=== PATIENT | female | born 1945 | race Caucasian/White ===

== ENCOUNTER 2021-01-19 12:59 | Outpatient (CLI) | payer MEDICARE, SELFPAY | END 2021-01-19 13:00 | disposition home or self-care (01) | LOC: ANHCOVIDVC 12:59 | PROVIDERS: PCP Family Medicine | DX: Z23 Encounter for immunization (principal) | CPT/HCPCS: 0001A; 91300 ==

== ENCOUNTER 2021-02-09 12:59 | Outpatient (CLI) | payer MEDICARE, SELFPAY | END 2021-02-09 13:00 | disposition home or self-care (01) | LOC: ANHCOVIDVC 12:59 | PROVIDERS: PCP Family Medicine | DX: Z23 Encounter for immunization (principal) | CPT/HCPCS: 0002A; 91300 ==

== ENCOUNTER 2021-04-18 07:45 | Observation (INO) | payer MEDICARE, SELFPAY ==
[2021-04-18] VITALS (18 sets, daily range): BP systolic 124–180; BP diastolic 78–94; PULSE 70–90; RESP 12–26; TEMP 36.1–36.7; O2SAT 95–100; BMI 37.8; BMI 38.3
--- NOTE | 2021-04-18 | ECHO_ITS ---
Patient Info Name: Denise Coker Age: 75 years : 1945 Gender: Female Ht: 65 in Wt: 227 lbs BSA: 2.22 m2 HR: 72 bpm BP: 124 / 81 mmHg Heart Rhythm: Sinus Rhythm Technical Quality: Good Exam Date: 04/18/2021 2:21 PM Exam Location: [facility] Pulmonary Patient Status: Inpatient Admit Date: 04/18/2021 Staff Ordering Physician: Oly Landa PA-C Telegraph Mechanic: Kacie Draper RDCS Attending Provider: Heriberto Gallegos M.A., MD Referring Physician: Cordell JACOBS; Exam Type: CA echo doppler color flow Study Info Complete two-dimensional, color flow and Doppler transthoracic echocardiogram is performed. Summary 1. Complete two-dimensional, color flow and Doppler transthoracic echocardiogram is performed. 2. There is mild concentric increased left ventricular wall thickness. 3. Left ventricular systolic function is hyperdynamic, estimated at >70%. 4. Sigmoid hypertrophy of the septum is seen. 5. The left ventricular diastolic function is grade I diastolic dysfunction. 6. Trivial MR. Left Ventricle Left ventricular chamber dimension is normal. Left ventricular systolic function is hyperdynamic, estimated at >70%. There is mild concentric increased left ventricular wall thickness. The left ventricular diastolic function is grade I diastolic dysfunction. Sigmoid hypertrophy of the septum is seen. Right Ventricle Right ventricular chamber dimension is normal. Left Atria Left atrial chamber dimension is normal. Right Atria Right atrial chamber dimension is normal. Aortic Valve The aortic valve is trileaflet. Pulmonic Valve The pulmonic valve is normal. Mitral Valve The mitral valve has normal leaflets. Trivial MR. Tricuspid Valve The tricuspid valve leaflets are normal. Pericardium/Pleural The pericardium appears normal. Aorta The aortic root size at the sinus of Valsalva is normal. Left Ventricular Outflow Tract Name Value Normal LVOT 2D LVOT Diameter 2.3 cm LVOT Doppler LVOT Peak Velocity 121 cm/s LVOT Peak Gradient 6 mmHg LVOT Mean Gradient 3 mmHg LVOT VTI 29 cm LVOT VTI/AV VTI Ratio 1.1 LVOT Stroke Volume 120 ml LVOT CO 6.9 l/min LVOT CI 3.1 l/min/m2 Pulmonic Valve Name Value Normal PV Doppler PV Peak Velocity 97 cm/s PV Peak Gradient 4 mmHg Mitral Valve Name Value Normal MV Doppler
--- NOTE | ~2021-04-18 | XR_ITS ---
EXAMINATION: XR chest 2V DATE: 04/18/2021 08:41 INDICATION: Chest pain and shortness of breath. TECHNIQUE: Frontal and lateral views of the chest were obtained. COMPARISON: Chest 2 views 09/26/2019 FINDINGS: The chest demonstrates clear lungs without pneumonia, pleural effusion, or pneumothorax. Th e heart size is normal. There is mild chronic anterior wedging of midthoracic vertebral bodies. Surgi ricardo clips in the right upper quadrant are likely from cholecystectomy. IMPRESSION: 1. No acute cardiopulmonary disease. Reviewed, dictated and finalized at location A.
--- NOTE | ~2021-04-18 | NM_ITS ---
EXAMINATION: NM mary stress w perfusion DATE: 04/19/2021 14:21 INDICATION: Chest pain TECHNIQUE: Rest images were obtained following intravenous administration of 9.55 mCi Tc99m tetrofosm in (Myoview). The patient was infused intravenously with Lexiscan (Regadenoson). Then, 32.6 mCi Tc99m tetrofosmin (Myoview) was administered intravenously, and stress images were obtained in supine posi tion. The patient was unable to tolerate prone positioning. Data was reconstructed into short axis an d horizontal and vertical long axis SPECT images. Gated SPECT images were also obtained. COMPARISON: None. FINDINGS: Small region of mild reversible decreased activity at the junction of the mid and basilar, anterolateral and inferolateral segments consistent with mild ischemia. No nonreversible perfusion de fects to suggest infarct. There is normal left ventricular chamber size, wall motion and ejection fra ction. Left ventricular ejection fraction measures >70%. IMPRESSION: 1. Small region of mild reversible ischemia in the circumflex coronary artery vascular distribution a t the junction of the mid and basilar anterolateral and inferolateral segments. 2. Left ventricular ejection fraction measuring >70%. Reviewed, dictated and finalized at location A. IMPRESSION: 1. Small region of mild reversible ischemia in the circumflex coronary artery v ascular distribution at the junction of the mid and basilar anterolateral and i nferolateral segments. 2. Left ventricular ejection fraction measuring >70%.
--- NOTE | 2021-04-18 07:51 | ECG_ITS ---
Measurements Intervals [place] Rate: 82 P: 20 WI: 132 QRS: -18 QRSD: 94 T: 42 QT: 367 QTc: 431 Interpretive Statements SINUS RHYTHM DELAYED PRECORDIAL R/S TRANSITION BASELINE ARTIFACT- I, II, III, AVR, AVL, AVF, V1-V3 BORDERLINE ECG Electronically Signed On 04-18-2021 10:21:43 CDT by Gerard Lira D.O.
[2021-04-18 08:46] LABS: Basophils Percent Auto 0.7 % (0.2-1.2); Eosinophils Absolute Auto 0.1 K/mm3 (0-0.3); Eosinophils Percent Auto 1.3 % (0-4.4); Hemoglobin 15.9 g/dL (12.0-15.0); Immature Granulocyte Absolute 0.03 K/mm3 (0.00-0.031); Immature Granulocyte Percent A 0.5 % (0-0.5); Lymphocytes Absolute Auto 1.93 K/mm3 (0.9-3.2); Lymphocytes Percent Auto 31.5 % (18.3-44.2); Mean Corpuscular HGB Conc 34.6 g/dl (32-36); Mean Corpuscular Volume 89.7 fl (80-100); Mean Platelet Volume 9.9 fl (7.4-10.4); Monocytes Absolute Auto 0.4 K/mm3 (0.1-0.6); Monocytes Percent Auto 6.9 % (2.6-8.5); Neutrophils Absolute Auto 3.6 K/mm3 (1.3-6.7); Neutrophils Percent Auto 59.1 % (45.5-73.1); Platelet Count Result 222 k/mm3 (150-375); Red Blood Count 5.13 M/mm3 (4.2-5.4); Red Cell Distribution Width 12.8 % (11.5-14.5); White Blood Count 6.1 K/mm3 (4.5-10.0)
[2021-04-18 08:58] LABS: INR 0.9; Prothrombin Time 12.9 Seconds (11.1-14.7)
[2021-04-18 09:00] LABS: Partial Thromboplastin Time 26.7 SECONDS (22.3-36.8)
[2021-04-18] MEDS: METOPROLOL TARTRATE TAB 25 MG, METOPROLOL TARTRATE TAB 12.5 MG 37.5 MG PO (09:30)
[2021-04-18 09:39] LABS: Anion Gap 10 mmol/L (8-16); Blood Urea Nitrogen 16 mg/dL (7-17); Calcium 9.5 mg/dL (8.4-10.2); Carbon Dioxide 25 mmol/L (22-30); Chloride 104 mmol/L (98-107); Estimated CRCL calculation 116 ml/min; Estimated Glomerular Filt Rate > 60; Glucose 125 mg/dL (65-105); Potassium 4.2 mmol/L (3.4-5.0); Sodium 139 mmol/L (137-145)
[2021-04-18 09:51] LABS: Troponin I < 0.012 ng/mL (0.000-0.034)
--- NOTE | 2021-04-18 10:41 | ED.CHESTPAIN ---
HPI - Chest Pain General Chief Complaint: Chest Pain Stated Complaint: chest pain, sob Time Seen by Provider: 04/18/21 08:19 Source: patient and family Mode of arrival: ambulatory Limitations: no limitations History of Present Illness HPI narrative: Patient is 75 years old white female presented to the ED with retrosternal chest pain and shortness of breath started 7 AM prior to arrival to the emergency room, at rest. Heaviness, 9 out of 10, had 324 mg of aspirin prior to arrival, pain improved down to 2 out of 10. Patient reports the pain improving laying down on the left side and after taking aspirin. History of cardiac stress test years ago with negative results, hypertension, positive family history for coronary artery disease.. Related Data Home Medications Medication Instructions Recorded Confirmed blood-glucose meter #1 each 10/06/19 04/12/21 cetirizine 10 mg tablet 5 mg PO DAILY PRN 10/06/19 04/12/21 cinnamon bark 500 mg capsule 500 mg PO DAILY 10/06/19 04/12/21 fluticasone propionate 50 1 spray NASAL PRN 10/06/19 04/12/21 mcg/actuation nasal spray,suspension lutein 20 mg capsule 20 mg PO DAILY 10/06/19 04/12/21 immun glob G 10 gram/50 mL(20 SUB-Q 03/16/20 04/12/21 %)-pro-IgA 0-50 mcg/mL subcutaneous soln cholecalciferol (vitamin D3) 125 mcg PO DAILY 04/18/21 [Vitamin D3] omeprazole 20 mg PO DAILY 04/18/21 Allergies Allergy/AdvReac Type Severity Reaction Status Date / Time grapefruit Allergy Unknown KIDNEY Verified 04/18/21 07:58 FAILURE Penicillins AdvReac Unknown Nausea Verified 04/18/21 07:58 SOFT DRINKS AdvReac Intermediate KIDNEY Uncoded 04/18/21 07:58 FAILURE Review of Systems Review of Systems: Narrative: CONSTITUTIONAL: Denies fever, chills, or sweats. EYES: Denies visual changes, redness, or discharge. ENT: Denies rhinorrhea, congestion, sore throat, or otalgia. CARDIOVASCULAR: Denies chest pain, palpitations, or edema. RESPIRATORY: Denies cough or dyspnea. GASTROINTESTINAL: Denies abdominal pain, nausea, vomiting, or diarrhea. GENITOURINARY: Denies dysuria or hematuria. SKIN: Denies rash or itching. MUSCULOSKELETAL: Denies back pain, joint pain, or myalgia. NEUROLOGIC: Denies headache, numbness, or weakness. PSYCHIATRIC: Denies anxiety or depression. PMFSH Past Medical History Medical History BMI 37.0-37.9, adult Family History Family History Father Hypertension Family history of heart disease in male family member before age 55 Cerebrovascular accident Grandparent Cerebrovascular accident Sibling Cerebrovascular accident Family history of diabetes mellitus in first degree relative Diabetes mellitus, Onset Age: 80 Family history of respiratory disorder, Onset Age: 2 Family history of malignant neoplasm, Onset Age: 80 Other Family history of cardiovascular disease Family history of malignant neoplasm of brain Social History Social History Smoking status: Never smoker Alcohol intake: never Gender identity (if verbalized by the patient): Female Exam Narrative: Exam Narrative: General appearance: Well-developed, well-nourished Skin: Normal color Head: Normocephalic, nontraumatic Eyes: Clear conjunctiva ENT: Oropharynx normal, ears normal, nose normal Neck: Supple, nontender Chest and respiratory: Airway patent, no respiratory distress, no accessory muscle use Heart: Regular rate/rhythm Abdomen: Soft, nontender, no organomegaly, quiet bowel sounds Vascular: Normal peripheral pulses, normal capillary refill. 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
[2021-04-18 11:21] LABS: Troponin I < 0.012 ng/mL (0.000-0.034)
[2021-04-18] MEDS: ENOXAPARIN 100 MG/ML SYRINGE SUB-Q (11:30)
--- NOTE | 2021-04-18 12:22 | PM.IMHP ---
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 The patient states at 7:00 p.m. last night she developed substernal chest pressure while she was laying down in bed. She did develop some shortness of breath associated with the chest pain. Denies any wheezing, nasal congestion, rhinorrhea, cough symptoms. Symptoms would not go away until she laid on her left side. She denies any associated symptoms of diaphoresis, nausea, radiation of chest pain, or any other associated symptoms. She was able to fall sleep last night while laying on her left side in then when she woke up this morning she continued to have substernal chest pressure. It is constant in nature, no waxing and waning. Chest pressure is worse with laying down flat. She did have 2 episodes of a fluttering sensation to her heart lasting a few seconds. One episode she was driving in her car and in traffic. The other [address] to [employer]. She denies any associated symptoms with her palpitations, and otherwise was feeling well prior. She denies any cold or flu-like symptoms. She denies any fevers, chills, nausea, vomiting, abdominal pain, diarrhea, leg swelling, calf pain, dysuria, frequent urination, lightheadedness, dizziness, near-syncope, or any other symptoms at this time. The patient has gained 36 lbs in the last 1 year while isolated for COVID due to her immunodeficiency and not eating well. She has started exercising, walking 60 minutes in the morning and now at 15 minutes of walking in the afternoon as well. She has also been dieting and eating better recently. She has not had any chest pain with walking recently. She does have episodes of SOB with walking where she has to stop to catch her breath, but then she is able to continue walking. Code Status- Full Code LINDSAY- Ankit Coker PCP- Dr. Bauer Review of Systems Review of Systems: All systems reviewed & are unremarkable except as noted in HPI and below PMFSH Past Medical History Medical History (Updated 04/18/21 @ 12:36 by Oly Landa PA-C) BMI 37.0-37.9, adult Borderline diabetes mellitus 02/06 HgbA1c 6.0% 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 COVID-19 vaccine administered 01/2021 Essential (primary) hypertension JOHN (obstructive sleep apnea) Intolerant of CPAP Surgical History Surgical History (Updated 04/18/21 @ 14:00 by Oly Landa PA-C) History of ankle surgery Left History of lumpectomy of left breast History of partial hysterectomy Hx of elbow surgery Right Family History Family History Father Family history of heart disease in male family member before age 55 Hypertension Cerebrovascular accident Family history of cardiovascular disease Grandparent Cerebrovascular accident Sibling Family history of respiratory disorder, Onset Age: 2 Diabetes mellitus, Onset Age: 80 Family history of malignant neoplasm, Onset Age: 80 Family history of diabetes mellitus in first degree relative Cerebrovascular accident Other Family history of malignant neoplasm of brain Social History Social History (Updated 04/18/21 @ 14:01 by Oly Landa PA-C) Smoking status: Never smoker Alcohol intake: never Substance use: never Substance use type: does not use Living arrangements: alone Occupation/Education: retired Additional occupation/education comments: From [employer] Spiritual care concerns: No Meds Home Medications and Allergies Home Medications Medication Instructions Recorded Confirmed Type blood-glucose meter #1 each 10/06/19 04/12/21 History cetirizine 10 mg tabl
--- NOTE | 2021-04-18 13:03 | ADMGEN ---
This patient, Denise Coker, was admitted to IMU Room 207-01 on 04/18/21 at 1240. Patient/family oriented to hospital policies and general routines including ID bracelet, bed and alarms, visiting hours, pain management, procedures, bathroom and other care routines, personal items, smoking policy, room service/diet, and visiting hours. Information on how to activate the Rapid Response Team has been discussed. Patient/Family are encouraged to report perceived risks to care and to ask questions if they do not understand what they are told or what they should do.
[2021-04-18 14:52] LABS: Troponin I < 0.012 ng/mL (0.000-0.034)
[2021-04-18 16:28] LABS: Glucose Point of Care 194 mg/dl (65-105)
[2021-04-18 17:56] LABS: Troponin I < 0.012 ng/mL (0.000-0.034)
[2021-04-19] VITALS (13 sets, daily range): BP systolic 138–168; BP diastolic 84–97; PULSE 75–99; RESP 12–20; TEMP 36.4–37.1; O2SAT 95–99
--- NOTE | 2021-04-19 | EST_ITS ---
Patient Info Name: Denise Coker Age: 75 years : 1945 Gender: Female Ht: 65 in Wt: 240 lbs BSA: 2.29 m2 Exam Date: 04/19/2021 1:23 PM Exam Location: [facility] Stress Patient Status: Inpatient Admit Date: 04/18/2021 Staff Ordering Physician: Dorothy Nicole Attending Provider: Oly Landa PA-C Exercise Technologist: Romy Wise RDCS Exercise Physician: Adolph Weiss MD Exam Type: CA stress mary w NM Study Info Indications R07.9 - Chest pain, unspecified A regadenoson stress test was performed. Summary 1. Normal sinus rhythm. 2. Leftward axis. 3. No abnormal ST or T changes following Lexiscan injection. 4. Clinically and electrocardiographically negative Lexiscan stress test. 5. Myocardial perfusion imaging exam to be dictated by the Radiology Department. Protocol: Lexiscan Stress ECG Details Stage: REST Duration (min): 7 min : 32 sec HR (bpm): 110 SBP (mmHg): 144 DBP (mmHg): 103 Stage: REST Duration (min): 9 min : 43 sec HR (bpm): 108 SBP (mmHg): 144 DBP (mmHg): 103 Stage: STAGE 1 Duration (min): 0 min : 59 sec HR (bpm): 119 SBP (mmHg): 142 DBP (mmHg): 96 Stage: RECOVERY Duration (min): 1 min : 0 sec HR (bpm): 121 SBP (mmHg): 127 DBP (mmHg): 93 Stage: RECOVERY Duration (min): 2 min : 0 sec HR (bpm): 118 SBP (mmHg): 127 DBP (mmHg): 93 Stage: RECOVERY Duration (min): 3 min : 0 sec HR (bpm): 115 SBP (mmHg): 139 DBP (mmHg): 98 Stage: RECOVERY Duration (min): 3 min : 9 sec HR (bpm): 115 SBP (mmHg): 139 DBP (mmHg): 98 Rest HR: 108 bpm Peak HR: 125 bpm Rest Sys BP: 144 mmHg Peak Sys BP: 142 mmHg Max Pred HR: 144 bpm % Max Pred HR: 87 % Target HR: 122 bpm Max RPP: 17,750 bpm*mmHg Termination Reason: Completed protocol Cardiac Symptoms: None Total Time: 1 min : 0 sec Rest Gómez BP: 103 mmHg Peak Gómez BP: 96 mmHg Total Dose: 0.4 mg Resting ECG Normal sinus rhythm. Leftward axis. Stress ECG No abnormal ST or T changes following Lexiscan injection. Report Signatures
[2021-04-19] MEDS: NITROGLYCERIN SL 0.4 MG TABLET SUBLINGUAL (04:39)
--- NOTE | 2021-04-19 04:40 | PC.NURSE ---
Patient complaining of chest pressure which is keeping her awake. Nitro administered and EKG done per order. Dr. Franks consulted.
--- NOTE | 2021-04-19 04:41 | ECG_ITS ---
Measurements Intervals [place] Rate: 88 P: 48 KS: 166 QRS: -15 QRSD: 97 T: 41 QT: 368 QTc: 447 Interpretive Statements SINUS RHYTHM NORMAL ECG Electronically Signed On 04-19-2021 6:06:33 CDT by Gerard Lira D.O.
[2021-04-19 04:43] LABS: Hematocrit 42.9 % (37.0-47.0); Hemoglobin 14.6 g/dL (12.0-15.0); Mean Corpuscular Hemoglobin 30.7 pg (26-34); Mean Corpuscular Volume 90.3 fl (80-100); Mean Platelet Volume 9.4 fl (7.4-10.4); Platelet Count Result 192 k/mm3 (150-375); Red Blood Count 4.75 M/mm3 (4.2-5.4); Red Cell Distribution Width 12.8 % (11.5-14.5); White Blood Count 6.4 K/mm3 (4.5-10.0)
[2021-04-19 04:53] LABS: Hemoglobin A1C 6.3 % (<5.7)
--- NOTE | 2021-04-19 04:56 | PC.NURSE ---
Denies chest pressure at this time.
[2021-04-19 05:00] LABS: Anion Gap 8 mmol/L (8-16); Blood Urea Nitrogen 13 mg/dL (7-17); Calcium 9.3 mg/dL (8.4-10.2); Carbon Dioxide 23 mmol/L (22-30); Chloride 106 mmol/L (98-107); Cholesterol 221 mg/dL (0-200); Estimated CRCL calculation 119 ml/min; Estimated Glomerular Filt Rate > 60; Glucose 151 mg/dL (65-105); HDL Direct 42 mg/dL; Potassium 4.1 mmol/L (3.4-5.0); Sodium 137 mmol/L (137-145); Triglycerides 383 mg/dL (<150)
[2021-04-19 05:10] LABS: LDL Cholesterol Direct 113 mg/dL
[2021-04-19 07:38] LABS: Glucose Point of Care 146 mg/dl (65-105)
[2021-04-19] MEDS: ASPIRIN 81 MG CHEWABLE TABLET PO (09:22)
[2021-04-19] MEDS: ENOXAPARIN 40 MG/0.4 ML SYRINGE SUB-Q (09:22)
--- NOTE | 2021-04-19 09:23 | PM.CNCAR ---
Assessment and Plan Assessment and plan (1) Chest pain: Qualifiers: Chest pain type: unspecified Qualified Code(s): R07.9 - Chest pain, unspecified <Dorothy NicoleSHITAL - Last Filed: 04/19/21 15:36> Code(s): R07.9 - Chest pain, unspecified <Dorothy NicoleSHITAL - Last Filed: 04/19/21 15:36> Status: Acute <Dorothy LoredoSHITAL zepeda - Last Filed: 04/19/21 15:36> Assessment and Plan: Came into Hospital yesterday with complaints of a ?heaviness? in her chest that she states has been transient since Sunday or Sunday. She rated the pain an 8/10 at its worst. Pain is relieved by lying on her left side and was also relieved by nitroglycerin this morning. EKG was normal, unremarkable for any ischemic changes. Troponins were negative x3. However, there are some concerning features of the quality and description of her pain and she does have risk factors including age and family history. We will plan for Lexiscan stress test today. <Dorothy Jerardo LoredoSHITAL zepeda - Last Filed: 04/19/21 15:36> (2) Essential (primary) hypertension: Code(s): I10 - Essential (primary) hypertension <Dorothy CarrollValentin BonnieSHITAL zepeda - Last Filed: 04/19/21 15:36> Status: Acute <SHITAL Dean - Last Filed: 04/19/21 15:36> Assessment and Plan: Better controlled since admission but not at goal. Will increase lisinopril to 10 mg daily. <SHITAL Dean - Last Filed: 04/19/21 15:36> (3) Hypertriglyceridemia: Code(s): E78.1 - Pure hyperglyceridemia <SHITAL Dean - Last Filed: 04/19/21 15:36> Status: Acute <Dorothy Jerardo LoredoSHITAL zepeda - Last Filed: 04/19/21 15:36> Assessment and Plan: Patient states she has not had a lipid panel drawn in quite some time. Lipids checked during this admission and showed triglycerides elevated at 383, total cholesterol borderline high at 221. LDL 113, HDL 42. Will encourage lifestyle modifications and have lipid panel rechecked as an outpatient. <SHITAL Dean - Last Filed: 04/19/21 15:36> Additional Plan I personally saw and evaluated the patient. I reviewed Dorothy Nicole's note and agree with findings and plan of care as documented in the note. <Jesus Franks MD - Last Filed: 05/03/21 08:51> History of Present Illness History of Present Illness Consult date/time: 04/19/21 09:23 cardiology consultation for chest pain. This is a 75-year-old female with a past medical history of common variable immunodeficiency on Hizentra infusions biweekly, hypertension, GERD, borderline diabetes mellitus who presented to the emergency department yesterday with complaints substernal chest pain. She states that the first episode of this chest pain occurred either on Sunday or Sunday. She states that the 1st time the pain occurred she felt some ?fluttering in her chest as well. The pain lasts for hours in duration and can be as severe as an 8/10. She denies any associated neck pain, jaw pain, arm pain, back pain. She states that last night she began experiencing this pain in her chest around 7:00 p.m. and it was unrelieved by taking aspirin but subsided when she changed positions in bed and laid on her left side. She also states previous to this episode last night, when she experiences pain another time the pain was relieved by sitting in her recliner. Apparently, she had another onset chest pain around 4:00 a.m. this morning and was given nitroglycerin. She says that the pain subsided but she is unsure if it is from the nitroglycerin or because the is episodes ?come and go. She does note that she has been participating more physical activity recently. She began walking 10 minutes a day and gradually built up to walking 60 minutes a day on a regular basis. She denies having any of these chest pain episodes when she goes on her daily walks. She also notes that she followed the keto diet for 2 years. During this pe
[2021-04-19 12:11] LABS: Glucose Point of Care 131 mg/dl (65-105)
[2021-04-19] MEDS: ONDANSETRON INJ 4 MG/2 ML VIAL IV PUSH (15:08)
[2021-04-19] MEDS: PANTOPRAZOLE 40 MG TABLET PO (15:08)
--- NOTE | 2021-04-19 16:47 | PM.DS ---
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 last evening prior to arrival. Pain has been intermittent and becomes intense at times rated 5/10, and other times less severe or its not present. She also had some fluttering palpitations the last few days which was unusual. Vitals showed she was afebrile, non tachycardic, blood pressure elevated 170/83 (she not take any of her medications prior to coming in), pulse ox 99% on room air and normal respirations. Initial labs showed CBC with differential, normal coag panel, normal BMP, negative troponins x4. EKG shows normal sinus rhythm with a heart rate of 82 beats per minute, no ST T-wave changes noted. Chest x-ray shows no acute cardiopulmonary disease. Normal heart size. The patient was admitted under observation status for continued monitoring her troponins, telemetry due to chest pain and fluttering, and cardiology consultation. Today the patient reports multiple episodes of 5/10 substernal chest pressure. Echocardiogram showed mild concentric increased left ventricular wall thickness. Left ventricular systolic function is hyperdynamic, estimated at >70%. Sigmoid hypertrophy of the septum is seen. The left ventricular diastolic function is grade I diastolic dysfunction. Trivial MR. She was evaluated by the aircraft ordnance technician who performed a Lexiscan stress test which showed Small region of mild reversible ischemia in the circumflex coronary artery vascular distribution at the junction of the mid and basilar anterolateral and inferolateral segments. Clinically and electrocardiographically negative Lexiscan stress test. Fasting lipid panel showed elevated triglycerides at 383, total cholesterol elevated at 221, LDL 113, HDL 42. Cardiology evaluated the patient and feels that she is stable for discharge at this time. She is not need to follow-up with cardiology as an outpatient. She can follow-up with her primary care provider within 1 week for further evaluation. They do not recommend starting her on any lipid-lowering medications, educated on lifestyle changes and exercise and repeating lipid panel as an outpatient. Told the patient her chest discomfort could be GI related and to continue taking her omeprazole and try p.r.n. Tums or Mylanta to see if it helps with her discomfort. Return to ER warnings giving. Follow-up with her primary care provider within 1 week. Patient understands and agrees the plan all questions answered. Starting the patient on Aspirin 81 mg daily and Rosuvastatin 20 mg daily. (2) Essential (primary) hypertension: Code(s): I10 - Essential (primary) hypertension Status: Acute Assessment and Plan: Patient's blood pressure was elevated on arrival, 170/83. Patient states she has not taken any of her home medications this morning. BP this morning was improved 138/84 prior to her morning medications. (3) Borderline diabetes mellitus: Code(s): R73.03 - Prediabetes Status: Acute Assessment and Plan: Patient's hemoglobin A1c is 6.0% 02/06. Rechecked hemoglobin A1c and it was 6.3%. Educated the patient to continue working on lifestyle modificiations, dieting, exercising and recheck with PCP labs in June 2021. Patient understands and agrees with the plan. (4) JOHN (obstructive sleep apnea): Code(s): G47.33 - Obstructive sleep apnea (adult) (pediatric) Status: Inactive Asses
== END 2021-04-19 18:43 | disposition home or self-care (01) ==
LOC: ANHED 10:47 → ANHIMU 12:07
PROVIDERS: Admitting Provider Internal Medicine; Emergency Provider Emergency Medicine; PCP Family Medicine; Visit Provider Physician Assistant
DX: R07.9 Chest pain, unspecified (principal); D83.9 Common variable immunodeficiency, unspecified; I10 Essential (primary) hypertension; K21.9 Gastro-esophageal reflux disease without esophagitis; R73.03 Prediabetes; G47.33 Obstructive sleep apnea (adult) (pediatric); I49.8 Other specified cardiac arrhythmias; E78.5 Hyperlipidemia, unspecified; R06.02 Shortness of breath
CPT/HCPCS: 36415; 71046; 78452; 80048; 80061; 82948; 83036; 84484; 85025; 85027; 85610; 85730; 93005; 93017; 93306; 96372; 96374; 99285; A9270; A9502; G0378; J1650; J2405; J2785

== ENCOUNTER 2022-03-22 09:07 | Outpatient (CLI) | payer MEDICARE, SELFPAY ==
--- NOTE | 2022-03-22 | EST_ITS ---
Patient Info Name: Denise Coker Age: 76 years : 1945 Gender: Female Ht: 66 in Wt: 224 lbs BSA: 2.22 m2 Exam Date: 03/22/2022 10:13 AM Exam Location: [facility] Stress Patient Status: Outpatient Admit Date: 03/22/2022 Staff Ordering Physician: Jose Bauer MD Attending Provider: Jose Bauer MD Exam Type: CA stress mary w NM Summary 1. 1. Negative lexiscan stress test for ischemic ST changes by ECG criteria. 2. 2. Stable hemodynamics throughout the test. 3. 3. Nuclear scan to follow and will be reported separately. Please correlate with it. 4. 4. Patient informed of the above results. Protocol: Lexiscan Stress ECG Details Stage: REST Duration (min): 0 min : 56 sec HR (bpm): 73 SBP (mmHg): 138 DBP (mmHg): 84 Stage: REST Duration (min): 17 min : 41 sec HR (bpm): 75 SBP (mmHg): 138 DBP (mmHg): 84 Stage: STAGE 1 Duration (min): 1 min : 0 sec HR (bpm): 90 SBP (mmHg): 147 DBP (mmHg): 84 Stage: RECOVERY Duration (min): 1 min : 0 sec HR (bpm): 104 SBP (mmHg): 147 DBP (mmHg): 84 Stage: RECOVERY Duration (min): 2 min : 0 sec HR (bpm): 102 SBP (mmHg): 147 DBP (mmHg): 84 Stage: RECOVERY Duration (min): 3 min : 0 sec HR (bpm): 98 SBP (mmHg): 141 DBP (mmHg): 78 Stage: RECOVERY Duration (min): 4 min : 0 sec HR (bpm): 98 SBP (mmHg): 141 DBP (mmHg): 78 Stage: RECOVERY Duration (min): 4 min : 17 sec HR (bpm): 96 SBP (mmHg): 141 DBP (mmHg): 78 Rest HR: 75 bpm Peak HR: 105 bpm Rest Sys BP: 138 mmHg Peak Sys BP: 147 mmHg Max Pred HR: 143 bpm % Max Pred HR: 73 % Target HR: 122 bpm Max RPP: 15,435 bpm*mmHg Termination Reason: Completed protocol Cardiac Symptoms: Shortness of breath Total Time: 1 min : 0 sec Rest Gómez BP: 84 mmHg Peak Gómez BP: 84 mmHg Total Dose: 0.4 mg Resting ECG Sinus rhythm. Stress ECG No ST changes. Arrhythmias None. Report Signatures
--- NOTE | ~2022-03-22 | NM_ITS ---
EXAMINATION: NM mary stress w perfusion DATE: 03/22/2022 12:03 INDICATION: Chest pain. TECHNIQUE: Rest images were obtained following intravenous administration of 9.9 mCi Tc99m tetrofosmi n (Myoview). The patient was infused intravenously with Lexiscan (regadenoson). Then, 31.4 mCi Tc99m tetrofosmin (Myoview) was administered intravenously, and stress images were obtained. Data was recon structed into short axis and horizontal and vertical long axis SPECT images. Gated SPECT images were also obtained. COMPARISON: Myocardial perfusion imaging 04/19/2021 FINDINGS: There is no definite reversible or fixed perfusion abnormality to suggest ischemia or infar ction. There is no segmental wall motion abnormality. Left ventricular ejection fraction measures > 70%. IMPRESSION: 1. No definite ischemia or infarct. 2. Normal left ventricular ejection fraction measuring >70%. Reviewed, dictated and finalized at location B.
== END 2022-03-22 09:08 | disposition home or self-care (01) ==
PROVIDERS: PCP Family Medicine; Visit Provider Family Medicine
DX: R07.89 Other chest pain (principal); E78.5 Hyperlipidemia, unspecified; I10 Essential (primary) hypertension; R73.03 Prediabetes
CPT/HCPCS: 78452; 93017; A9502; J2785

== ENCOUNTER 2022-04-03 07:43 | Outpatient (CLI) | payer MEDICARE, SELFPAY ==
--- NOTE | 2022-04-03 07:55 | ECHO_ITS ---
Patient Info Name: Denise Coker Age: 76 years : 1945 Gender: Female Ht: 65 in Wt: 226 lbs BSA: 2.22 m2 HR: 75 bpm BP: 156 / 99 mmHg Technical Quality: Fair Exam Date: 04/03/2022 8:12 AM Exam Location: [facility] Patient Status: Outpatient Admit Date: 04/03/2022 Staff Ordering Physician: Jose Bauer MD Base Brander: Romy Wise RDCS Attending Provider: Jose Bauer MD Referring Physician: Lizette MÉNDEZ; Exam Type: CA echo doppler color flow Study Info Indications R07.9 - Chest pain, unspecified Complete two-dimensional, color flow and Doppler transthoracic echocardiogram is performed. Summary 1. Complete two-dimensional, color flow and Doppler transthoracic echocardiogram is performed. 2. Left ventricular chamber dimension is normal. 3. Left ventricular systolic function is normal, estimated at 60-65%. 4. The left ventricular diastolic function is grade I diastolic dysfunction. 5. E/e' 13 is mildly elevated. 6. Global longitudinal strain is abnormal at -15.5%. 7. There is trace aortic valve regurgitation. 8. There is trace tricuspid valve regurgitation. 9. No pulmonary hypertension, estimated pulmonary arterial systolic pressure is 25 mmHg. 10. There is trace pulmonic regurgitation. Left Ventricle E/e' 13 is mildly elevated. Global longitudinal strain is abnormal at -15.5%. Left ventricular chamber dimension is normal. Left ventricular systolic function is normal, estimated at 60-65%. The left ventricular diastolic function is grade I diastolic dysfunction. Right Ventricle Right ventricular chamber dimension is normal. Right ventricular systolic function is normal. Left Atria Left atrial chamber dimension is normal. Right Atria Right atrial chamber dimension is normal. Aortic Valve The aortic valve is trileaflet. There is no aortic valve stenosis. There is trace aortic valve regurgitation. Pulmonic Valve There is trace pulmonic regurgitation. Mitral Valve There is no mitral valve stenosis. There is no mitral valve regurgitation. Tricuspid Valve There is trace tricuspid valve regurgitation. No pulmonary hypertension, estimated pulmonary arterial systolic pressure is 25 mmHg. Pericardium/Pleural There is no pericardial effusion. Inferior Vena Cava Normal inferior vena cava with >50% collapse upon inspiration consistent with normal right atrial pressure, 5 mmHg. Aorta The aortic root size at the sinus of Valsalva is normal. Left Ventricular Outflow Tract Name Value Normal LVOT 2D LVOT Diameter 2.0 cm LVOT Doppler LVOT Peak Gradient 5 mmHg LVOT Mean Gradient 3 mmHg LVOT VTI 24 cm LVOT VTI/AV VTI Ratio 1.0 LVOT Stroke Volume 76 ml LVOT CO 5.7 l/min LVOT CI 2.6 l/min/m2 Pulmonic Valve Name Value Normal --
== END 2022-04-03 07:44 | disposition home or self-care (01) ==
LOC: ANHCARD 07:44
PROVIDERS: PCP Family Medicine; Visit Provider Family Medicine
DX: R07.89 Other chest pain (principal); R06.2 Wheezing
CPT/HCPCS: 93306

== ENCOUNTER 2022-12-31 06:40 | Emergency (ER) | payer MEDICARE, SELFPAY ==
--- NOTE | ~2022-12-31 | CT_ITS ---
EXAMINATION: CT brain wo con DATE: 12/31/2022 07:35 INDICATION: Headache, dizziness, nausea and vomiting TECHNIQUE: Computed tomography (CT) of the head was performed without intravenous contrast. The mA wa s adjusted according to patient size. Iterative reconstruction technique was employed. Exam dose: 60 5.33 mGy-cm total exam DLP. COMPARISON: 06/20/2018 MRI brain/brainstem 06/20/2018 CTA brain/carotid 06/20/2018 CT brain FINDINGS: Tortuosity and calcification of the basilar artery. Prominent bilateral carotid siphon and supraclinoid internal carotid artery calcifications. No intracranial mass lesion or hemorrhage or cerebrovascular accident is detected. No midline shift o r mass effect. Normal ventricular size. No subdural or epidural hematoma. The mastoid air cells and included paranasal sinuses are unremarkable. No fracture or bone destruction of the cranial. IMPRESSION: Cerebral atherosclerosis No other significant intracranial abnormality Reviewed, dictated and finalized at Location A. Reviewed, dictated and finalized at location A. [place] [employer]
[2022-12-31 06:46] VITALS: BP 181/79; PULSE 67; RESP 17; TEMP 36.8; O2SAT 99
[2022-12-31 07:07] VITALS: BP 157/85; PULSE 80; RESP 20; O2SAT 99
--- NOTE | 2022-12-31 07:17 | PC.NURSE ---
Addendum entered by Judy Gould RN 12/31/22 07:19: Report given to BRANDON Serra Original Note: Report given to BRANDON Castillo.
--- NOTE | 2022-12-31 07:22 | ED.HA ---
HPI - Headache General Chief Complaint: Recheck/Abnormal Lab/Rx Stated Complaint: High bp, dizzy Time Seen by Provider: 12/31/22 06:59 History of Present Illness HPI Narrative: This is a 77-year-old female with reported history of hypertension and diabetes, presents emergency department complaining of headache, nausea and vomiting. Patient states she woke up at 2:00 this morning with a pressure-like headache associated with some nausea. She took an Excedrin with resolution but woke again approximately 2 hours ago with nausea and vomited. She states she checked her blood pressure at home was 180s systolic. She also checked her blood sugar was in the 300s. She states she is usually in the 200s. She admits to eating a large meal yesterday with foods she does not typically eat. She denies any recent trauma or loss of consciousness. She states she had some dizziness that has resolved, though does feel intermittently nauseous. Related Data Home Medications Medication Instructions Recorded Confirmed blood-glucose meter (Contour Meter #1 ea 10/06/19 10/19/22 kit) cetirizine 10 mg tablet (Zyrtec) 5 mg PO DAILY PRN Allergy Symptoms 10/06/19 10/19/22 cinnamon bark 500 mg capsule 500 mg PO DAILY 10/06/19 10/19/22 (Cinnamon) lutein 20 mg capsule 20 mg PO DAILY 10/06/19 10/19/22 cholecalciferol (vitamin D3) 125 125 mcg PO DAILY 04/18/21 10/19/22 mcg (5,000 unit) tablet (Vitamin D3) omeprazole 20 mg tablet,delayed 20 mg PO DAILY 04/18/21 10/19/22 release immun glob G 10 gram/50 mL(20 110 ml subcut .Biweekly 02/23/22 10/19/22 %)-pro-IgA 0-50 mcg/mL subcutaneous soln (Hizentra) Allergies Allergy/AdvReac Type Severity Reaction Status Date / Time grapefruit Allergy Unknown KIDNEY Verified 12/31/22 08:59 FAILURE Penicillins AdvReac Unknown Nausea Verified 12/31/22 08:59 SOFT DRINKS AdvReac Intermediate KIDNEY Uncoded 12/31/22 08:59 FAILURE Review of Systems Review of Systems: CONSTITUTIONAL: Denies fever, chills, or sweats. EYES: Denies visual changes, redness, or discharge. CARDIOVASCULAR: Denies chest pain, palpitations, or edema. RESPIRATORY: Denies cough or dyspnea. GASTROINTESTINAL: Nausea and vomiting denies abdominal pain, or diarrhea. GENITOURINARY: Denies dysuria or hematuria. MUSCULOSKELETAL: Denies back pain, joint pain, or myalgia. NEUROLOGIC: Headache, mild vertigo denies numbness, or weakness. PSYCHIATRIC: Denies anxiety or depression. 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 COVID-19 vaccine administered 01/2021 Diastolic dysfunction Essential (primary) hypertension Flu-like symptoms JOHN (obstructive sleep apnea) Intolerant of CPAP Surgical History Surgical History H/O tooth extraction History of ankle surgery Left History of lumpectomy of left breast History of partial hysterectomy Hx of elbow surgery Right Family History Family History Father Family history of heart disease in male family member before age 55 Hypertension Cerebrovascular accident Family history of cardiovascular disease Grandparent Cerebrovascular accident Sibling Family history of respiratory disorder, Onset Age: 2 Diabetes mellitus, Onset Age: 80 Family history of malignant neoplasm, Onset Age: 80 Family history of diabetes mellitus in first degree relative Cerebrovascular accident Mother , Toxemia at No problems noted. Sibling Diabetes mellitus Dementia Other Family history of malignant neoplasm of brain Social History Social History (Reviewed 12/31/22 @ 07:24 b
[2022-12-31] MEDS: ONDANSETRON HCL ODT 4 MG TABLET PO (07:28)
[2022-12-31 07:31] VITALS: RESP 18; O2SAT 98
[2022-12-31 07:41] LABS: Basophils Percent Auto 0.3 % (0.2-1.2); Eosinophils Percent Auto 0.3 % (0-4.4); Hemoglobin 14.5 g/dL (12.0-15.0); Immature Granulocyte Absolute 0.05 K/mm3 (0.00-0.031); Immature Granulocyte Percent A 0.8 % (0-0.5); Lymphocytes Absolute Auto 1.09 K/mm3 (0.9-3.2); Lymphocytes Percent Auto 17.5 % (18.3-44.2); Mean Corpuscular HGB Conc 33.7 g/dl (32-36); Mean Corpuscular Hemoglobin 30.8 pg (26-34); Mean Corpuscular Volume 91.3 fl (80-100); Mean Platelet Volume 10.1 fl (7.4-10.4); Monocytes Absolute Auto 0.3 K/mm3 (0.1-0.6); Monocytes Percent Auto 4.3 % (2.6-8.5); Neutrophils Absolute Auto 4.8 K/mm3 (1.3-6.7); Neutrophils Percent Auto 76.8 % (45.5-73.1); Platelet Count Result 170 k/mm3 (150-375); Red Blood Count 4.71 M/mm3 (4.2-5.4); Red Cell Distribution Width 13.3 % (11.5-14.5); White Blood Count 6.2 K/mm3 (4.5-10.0)
[2022-12-31 08:09] LABS: Alanine Aminotransferase 28 U/L (6-35); Albumin Level 4.6 g/dL (3.5-5.1); Alkaline Phosphatase 121 U/L (38-126); Anion Gap 8 mmol/L (8-16); Aspartate Amino Transferase 27 U/L (14-36); Bilirubin,Total 0.6 mg/dL (0.2-1.3); Blood Urea Nitrogen 21 mg/dL (7-17); Calcium 9.2 mg/dL (8.4-10.2); Carbon Dioxide 25 mmol/L (22-30); Chloride 100 mmol/L (98-107); Estimated Glomerular Filt Rate > 60; Glucose 305 mg/dL (65-110); Potassium 3.7 mmol/L (3.4-5.0); Sodium 133 mmol/L (137-145)
[2022-12-31 08:57] VITALS: BP 168/76; PULSE 78; RESP 18; O2SAT 95
[2022-12-31 09:30] VITALS: BP 128/77; PULSE 82; RESP 20; O2SAT 96
== END 2022-12-31 09:31 | disposition home or self-care (01) ==
PROVIDERS: Emergency Provider Preventive Medicine Aerospace Medicine; PCP Family Medicine
DX: R11.2 Nausea with vomiting, unspecified (principal); R51.9 Headache, unspecified; E11.9 Type 2 diabetes mellitus without complications; I10 Essential (primary) hypertension; D83.9 Common variable immunodeficiency, unspecified; G47.33 Obstructive sleep apnea (adult) (pediatric); Z90.711 Acquired absence of uterus with remaining cervical stump; Z79.82 Long term (current) use of aspirin
CPT/HCPCS: 36415; 70450; 80053; 85025; 99284; A9270

== ENCOUNTER 2024-01-17 10:30 | Outpatient (CLI) | payer MEDICARE, SELFPAY ==
--- NOTE | ~2024-01-17 | US_ITS ---
EXAMINATION: US soft tissue LE RT DATE: 01/17/2024 11:22 INDICATION: Effusion, right knee. TECHNIQUE: Multiple grayscale and Doppler ultrasound images of the right lower limb were obtained. COMPARISON: None FINDINGS: There is a moderate-sized right knee joint effusion. The patellar tendon and quadriceps ten don are unremarkable. IMPRESSION: 1. Moderate-sized right knee joint effusion. Reviewed, dictated and finalized at location A. RIGGER
== END 2024-01-17 10:31 | disposition home or self-care (01) ==
LOC: ANHIMG 10:30
PROVIDERS: PCP Family Medicine; Visit Provider Physician Assistant
DX: M25.461 Effusion, right knee (principal)
CPT/HCPCS: 76882

== ENCOUNTER 2024-06-03 10:36 | Outpatient (CLI) | payer MEDICARE, SELFPAY ==
[2024-06-03 12:16] LABS: Immunoglobulin G 848 mg/dL (700-1600)
== END 2024-06-03 10:37 | disposition home or self-care (01) ==
PROVIDERS: PCP Family Medicine
DX: D80.1 Nonfamilial hypogammaglobulinemia (principal)
CPT/HCPCS: 36415; 82784

== ENCOUNTER 2024-09-16 10:18 | Outpatient (CLI) | payer MEDICARE, SELFPAY ==
--- NOTE | ~2024-09-16 | XR_ITS ---
EXAMINATION: XR chest 2V DATE: 09/16/2024 10:39 INDICATION: Shortness of breath. Chest pain. TECHNIQUE: Frontal and lateral views of the chest were obtained. COMPARISON: Chest 2 views 04/18/2021 FINDINGS: There is no pneumonia, pleural effusion, or pneumothorax. The heart size is normal. Surgica l clips in the right upper quadrant are likely from cholecystectomy. There is mild chronic anterior w edging of multiple mid thoracic vertebral bodies. IMPRESSION: 1. No acute cardiopulmonary disease. Reviewed, dictated and finalized at location B.
== END 2024-09-16 10:19 | disposition home or self-care (01) ==
PROVIDERS: PCP Family Medicine; Visit Provider Family Medicine
DX: R06.02 Shortness of breath (principal); R05.9 Cough, unspecified
CPT/HCPCS: 71046

== ENCOUNTER 2025-01-27 12:06 | Emergency (ER) | payer MEDICARE, SELFPAY ==
[2025-01-27 12:09] VITALS: BP 156/75; PULSE 80; RESP 16; TEMP 36.7; O2SAT 98
--- NOTE | 2025-01-27 13:28 | ED.WOUNDLAC ---
HPI - Wound/Laceration General Chief Complaint: Wound/Laceration <Leyla Vallecillo PA-C - Last Filed: 01/30/25 10:28> Stated Complaint: left leg spider bite red painful <Leyla Vallecillo PA-C - Last Filed: 01/30/25 10:28> Time Seen by Provider: 01/27/25 13:28 <Leyla Vallecillo PA-C - Last Filed: 01/30/25 10:28> Focused HPI: This is a 79 year old female that presents to the ER for an area of redness and swelling to the left posterior thigh. Ongoing over the last couple of days. Reports history of DM. Denies fever, drainage. GENERAL: Well-appearing, well-nourished, and in no acute distress. HEAD: Normocephalic, atraumatic. CHEST: Clear to auscultation. ?No respiratory distress. HEART: Regular rate and rhythm.? NEURO: ?Alert and oriented x3. Patient screened in triage and initial orders placed.? ?Additional care and disposition to be based upon?diagnostic testing and treatment. <Leyla Vallecillo PA-C - Last Filed: 01/30/25 10:28> History of Present Illness HPI narrative: Agree with the HPI above <Cali Lazo MD - Last Filed: 01/27/25 21:15> Related Data Home Medications: Home Medications ?Medication ?Instructions ?Recorded ?Confirmed ?Last Taken ?Type cetirizine 10 mg tablet (Zyrtec) 5 mg PO DAILY PRN Allergy Symptoms 10/06/19 09/16/24 04/17/21 History cinnamon bark 500 mg capsule 500 mg PO DAILY 10/06/19 09/16/24 04/17/21 History (Cinnamon) lutein 20 mg capsule 20 mg PO DAILY 10/06/19 09/16/24 04/17/21 History cholecalciferol (vitamin D3) 125 125 mcg PO DAILY 04/18/21 09/16/24 04/17/21 History mcg (5,000 unit) tablet (Vitamin D3) omeprazole 20 mg tablet,delayed 20 mg PO DAILY 04/18/21 09/16/24 04/17/21 History release immun glob G 10 gram/50 mL(20 110 ml subcut .Biweekly 02/23/22 09/16/24 Unknown History %)-pro-IgA 0-50 mcg/mL subcutaneous soln (Hizentra) amlodipine 2.5 mg tablet 2.5 mg PO DAILY 01/22/23 09/16/24 Unknown History ketoconazole 2 % topical cream applic topical 09/16/24 09/16/24 Unknown History <Leyla Vallecillo PA-C - Last Filed: 01/30/25 10:28> Allergies/Adverse Reactions: Allergies Allergy/AdvReac Type Severity Reaction Status Date / Time grapefruit Allergy Unknown KIDNEY Verified 01/30/25 10:04 FAILURE Penicillins AdvReac Unknown Nausea Verified 01/30/25 10:04 SOFT DRINKS AdvReac Intermediate KIDNEY Uncoded 01/30/25 10:04 FAILURE <Leyla Vallecillo PA-C - Last Filed: 01/30/25 10:28> Review of Systems Review of Systems: As reviewed above in HPI <Cali Lazo MD - Last Filed: 01/27/25 21:15> [facility] Past Medical History Medical History: Medical History Borderline diabetes mellitus 02/06 HgbA1c 6.0% Adult BMI 38.0-38.9 kg/sq m Mixed stress and urge urinary incontinence Cough Ankle arthritis Flu-like symptoms Diastolic dysfunction JOHN (obstructive sleep apnea) Intolerant of CPAP COVID-19 vaccine administered 01/2021 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 Essential (primary) hypertension <Leyla Vallecillo PA-C - Last Filed: 01/30/25 10:28> Surgical History Surgical History: Surgical History H/O tooth extraction History of lumpectomy of left breast History of ankle surgery Left Hx of elbow surgery Right History of partial hysterectomy <Leyla Vallecillo PA-C - Last Filed: 01/30/25 10:28> Family History Family History: Family History Father Family history of heart disease in male family member before age 55 Hypertension Cerebrovascular accident Family history of cardiovascular disease Grandparent Cerebrovascular accident Sibling Family history of respiratory disorder, Onset Age: 2 Diabetes mellitus, Onset Age: 80 Family history of malignant neoplasm, Onset Age: 80 Family history of diabetes mellitus in first degree relative Cerebrovascular accident Mother , Toxemia at Toxemia after giving . Sibling Diabetes mellitus Dementia Sibling Heart disease Pacemaker Dementia Other Family history of malignant neoplasm of brain <Leyla Vallecillo PA-C - Last Filed: 01/30/25 10:28> Social History Social History: Social History Smoking status: Never smoker Second hand tobacco smoke exposure: Yes Alcohol intake: never Substance use: never Substance use type: does not use Do You Feel Safe in your Home?: Yes Lack of Transportation: No Lack of Food: Never True Current Housing: I Have Housing Concerned About Future Housing: No Difficulty Paying Gas/Electric Bills: No Difficulty Paying for Meds: No Currently Unemployed: No Education: High School Diploma/GED Difficulty w/ Childcare or Family Care: No Living arrangements: alone Occupation/Education: retired Additional occupation/education comments: From [employer] Gender identity (if verbalized by the patient): Female Sexual Orientation (if Verbalized by the Patient): Straight or Heterosexual Spiritual care concerns: No Agree to blood products: Yes <Leyla Vallecillo PA-C - Last Filed: 01/30/25 10:28> Exam Narrative: GENERAL: [Well-appearing, well-nourished, and in no acute distress.] HEAD: [Normocephalic, atraumatic.] EYES: [PERRLA and EOMI.] ENT: Nares clear, no rhinorrhea or epistaxis. Mucous membranes moist. NECK: Supple. CHEST: [Clear to auscultation. No respiratory distress.] HEART: [Regular rate and rhythm]. No murmur heard. [Normal peripheral pulses.] ABDOMEN: [Soft, nondistended], [nontender], [No rigidity or guarding] EXTREMITIES: Normal range of motion. [No edema.] SKIN: Posterior left thigh has an area of induration with some erythema and what appears to be 2 punctate lesions consistent with potential bug bite. Surrounding area appears to be slightly indurated without any fluctuance or palpable abscess formation. Consistent with cellulitis. NEURO: [No focal deficits]. Alert and oriented [x3.] PSYCH: [Normal mood and affect.] <Cali Lazo MD - Last Filed: 01/27/25 21:15> Course Vital Signs Vital signs: Vital Signs Temperature 98.0 F 01/27/25 12:09 Pulse Rate 80 01/27/25 12:09 Respiratory Rate 16 01/27/25 12:09 Blood Pressure 156/75 H 01/27/25 12:09 Pulse Oximetry 98 01/27/25 12:09 Oxygen Delivery Room Air 01/27/25 12:09 Temperature 97.8 F 01/27/25 15:09 Pulse Rate 67 01/27/25 15:09 Respiratory Rate 16 01/27/25 15:09 Blood Pressure 130/62 01/27/25 15:09 Pulse Oximetry 99 01/27/25 15:09 Oxygen Delivery Room Air 01/27/25 12:09 <Leyla Vallecillo PA-C - Last Filed: 01/30/25 10:28> Vital Signs Temperature 98.0 F 01/27/25 12:09 Pulse Rate 80 01/27/25 12:09 Respiratory Rate 16 01/27/25 12:09 Blood Pressure 156/75 H 01/27/25 12:09 Pulse Oximetry 98 01/27/25 12:09 Oxygen Delivery Room Air 01/27/25 12:09 Temperature 97.8 F 01/27/25 15:09 Pulse Rate 67 01/27/25 15:09 Respiratory Rate 16 01/27/25 15:09 Blood Pressure 130/62 01/27/25 15:09 Pulse Oximetry 99 01/27/25 15:09 Oxygen Delivery Room Air 01/27/25 12:09 <Cali Lazo MD - Last Filed: 01/27/25 21:15> MDM - Wound/Laceration MDM Narrative Medical decision making narrative: 79-year-old female presenting for left posterior thigh potential spider bite. She has an area of induration and erythema with some tenderness to palpation and what appears to be punctate lao from a potential spider bite or insect bite. The surrounding area is not tracking with any streaking or ascending or descending signs of infection. No palpable fluctuance or drainable abscess on external examination. She has normal vital signs. Patient denies any other potential trauma or injury. She is not sure what bit her and she does not remember a bite but woke up with this several days ago. Blood work was obtained including CBC, CMP, inflammatory markers. Will treat her for cellulitis and potential bug bites/spider bite. She will be given Bactrim here in in the ED and sent home with a prescription. Patient's laboratory studies do not show any leukocytosis, mild CRP elevation, normal kidney and hepatic function. Normal glucose. Encouraged to follow-up with her primary care provider. She was given return precautions and safe for discharge at this time. <Cali Lazo MD - Last Filed: 01/27/25 21:15> Medical Records Attestation: I reviewed the patient's medical records. <Cali Lazo MD - Last Filed: 01/27/25 21:15> Lab Data Attestation: I reviewed the patient's lab results. <Cali Lazo MD - Last Filed: 01/27/25 21:15> Result diagrams: 01/27/25 13:52 01/27/25 13:52 <Leyla Vallecillo PA-C - Last Filed: 01/30/25 10:28> Labs: Lab Results 01/27/25 Range/Units 13:52 WBC 8.7 (4.5-10.0) K/mm3 RBC 4.51 (4.2-5.4) M/mm3 Hgb 13.9 (12.0-15.0) g/dL Hct 41.8 (37.0-47.0) % MCV 92.7 (80-100) fl MCH 30.8 (26-34) pg MCHC 33.3 (32-36) g/dl RDW 13.8 (11.5-14.5) % Plt Count 156 (150-375) k/mm3 MPV 9.8 (7.4-10.4) fl Immature Gran % (Auto) 0.3 (0-0.5) % Neut % (Auto) 67.9 (45.5-73.1) % Lymph % (Auto) 22.3 (18.3-44.2) % [place] % (Auto) 7.8 (2.6-8.5) % Eos % (Auto) 1.4 (0-4.4) % Baso % (Auto) 0.3 (0.2-1.2) % Lymph # (Auto) 1.94 (0.9-3.2) K/mm3 [place] # (Auto) 0.7 H (0.1-0.6) K/mm3 Eos # (Auto) 0.1 (0-0.3) K/mm3 Baso # (Auto) 0.0 (0.0-0.1) K/mm3 Abs Immat Gran (auto) 0.03 (0.00-0.031) K/mm3 Absolute Neuts (auto) 5.9 (1.3-6.7) K/mm3 Absolute Nucleated RBC 0.000 (0.0-0.012) K/mm3 Nucleated RBC % 0.0 (0.0-0.2) % ESR 20 (0-20) mm/hr Sodium 139 (137-145) mmol/L Potassium 3.9 (3.4-5.0) mmol/L Chloride 106 (98-107) mmol/L Carbon Dioxide 23 (22-30) mmol/L Anion Gap 10 (4-12) mmol/L BUN 19 H (7-17) mg/dL Creatinine 0.48 L (0.7-1.0) mg/dL Estim Creat Clear Calc 90 ml/min Estimated GFR > 60 (59 - ) Glucose 144 H (65-110) mg/dL Calcium 8.9 (8.4-10.2) mg/dL C-Reactive Protein 1.9 H (<1.0) mg/dL <Leyla Vallecillo PA-C - Last Filed: 01/30/25 10:28> Lab Results 01/27/25 Range/Units 13:52 WBC 8.7 (4.5-10.0) K/mm3 RBC 4.51 (4.2-5.4) M/mm3 Hgb 13.9 (12.0-15.0) g/dL Hct 41.8 (37.0-47.0) % MCV 92.7 (80-100) fl MCH 30.8 (26-34) pg MCHC 33.3 (32-36) g/dl RDW 13.8 (11.5-14.5) % Plt Count 156 (150-375) k/mm3 MPV 9.8 (7.4-10.4) fl Immature Gran % (Auto) 0.3 (0-0.5) % Neut % (Auto) 67.9 (45.5-73.1) % Lymph % (Auto) 22.3 (18.3-44.2) % [place] % (Auto) 7.8 (2.6-8.5) % Eos % (Auto) 1.4 (0-4.4) % Baso % (Auto) 0.3 (0.2-1.2) % Lymph # (Auto) 1.94 (0.9-3.2) K/mm3 [place] # (Auto) 0.7 H (0.1-0.6) K/mm3 Eos # (Auto) 0.1 (0-0.3) K/mm3 Baso # (Auto) 0.0 (0.0-0.1) K/mm3 Abs Immat Gran (auto) 0.03 (0.00-0.031) K/mm3 Absolute Neuts (auto) 5.9 (1.3-6.7) K/mm3 Absolute Nucleated RBC 0.000 (0.0-0.012) K/mm3 Nucleated RBC % 0.0 (0.0-0.2) % ESR 20 (0-20) mm/hr Sodium 139 (137-145) mmol/L Potassium 3.9 (3.4-5.0) mmol/L Chloride 106 (98-107) mmol/L Carbon Dioxide 23 (22-30) mmol/L Anion Gap 10 (4-12) mmol/L BUN 19 H (7-17) mg/dL Creatinine 0.48 L (0.7-1.0) mg/dL Estim Creat Clear Calc 90 ml/min Estimated GFR > 60 (59 - ) Glucose 144 H (65-110) mg/dL Calcium 8.9 (8.4-10.2) mg/dL C-Reactive Protein 1.9 H (<1.0) mg/dL <Cali Lazo MD - Last Filed: 01/27/25 21:15> Critical Care Time Critical Care Time Critical Care Time: No <Leyla Vallecillo PA-C - Last Filed: 01/30/25 10:28> Discharge Plan Discharge Clinical Impression: Bug bite Qualifiers: Encounter type: initial encounter Qualified Code(s): W57.XXXA - Bitten or stung by nonvenomous insect and other nonvenomous arthropods, initial encounter Cellulitis Qualifiers: Site of cellulitis: extremity Site of cellulitis of extremity: lower extremity Laterality: left Qualified Code(s): L03.116 - Cellulitis of left lower limb <CHINYERE Bearden Last Filed: 01/30/25 10:28> Patient Disposition: Home, Self-Care <CHINYERE Bearden Last Filed: 01/30/25 10:28> Condition: Stable <CHINYERE Bearden Last Filed: 01/30/25 10:28> Instructions: Antibiotic Form, Cellulitis (ED), Insect Bite or Sting (ED) <CHINYERE Bearden Last Filed: 01/30/25 10:28> Additional Instructions: Your symptoms are consistent with cellulitis likely from a recent bug bite to left thigh. We will send you home with Bactrim which is a broad-spectrum antibiotic. Continue taking this as directed, Tylenol ibuprofen for pain control. Return with any new or worsening concerns otherwise follow-up with regular doctor. You can apply Neosporin to the bug bite itself. <Leyla Vallecillo PA-C - Last Filed: 01/30/25 10:28> Patient Language: Greek <CHINYERE Bearden Last Filed: 01/30/25 10:28> Prescriptions: New sulfamethoxazole-trimethoprim [Bactrim DS] 800-160 mg tablet 1 tablet PO Q12H Qty: 14 0RF No Action Hizentra 10 gram/50 mL (20 %) solution 110 ml SUB-Q .Biweekly nitroglycerin 0.4 mg tablet, sublingual 0.4 mg sublingual Q5M PRN (Reason: chest pain) Qty: 25 0RF Rx Instructions: do not exceed 3 doses per episode amlodipine 2.5 mg tablet 2.5 mg PO DAILY cinnamon bark [Cinnamon] 500 mg capsule 500 mg PO DAILY lutein 20 mg capsule 20 mg PO DAILY cetirizine [Zyrtec] 10 mg tablet 5 mg PO DAILY PRN (Reason: Allergy Symptoms) albuterol sulfate 90 mcg/actuation HFA aerosol inhaler 2 inh inhalation Q6H PRN (Reason: shortness of breath or wheezing) Qty: 8.5 2RF ketoconazole 2 % cream topical omeprazole 20 mg Tablet,Delayed Release (Dr/Ec) 20 mg PO DAILY cholecalciferol (vitamin D3) [Vitamin D3] 125 mcg (5,000 unit) Tablet 125 mcg PO DAILY aspirin [Children's Aspirin] 81 mg Tablet,Chewable 81 mg PO DAILY Qty: 30 0RF (DME) lancets 31 gauge misc See Rx Instructions .Route Qty: 100 1RF Rx Instructions: Use daily metoprolol succinate 50 mg tablet extended release 24 hr 100 mg PO DAILY Qty: 180 0RF Farxiga 10 mg tablet 10 mg PO QAM Qty: 90 3RF rosuvastatin 20 mg tablet See Rx Instructions .ROUTE .COMPLEX Qty: 90 1RF Dose Instruction: TAKE 1 TABLET BY MOUTH DAILY Rx Instructions: TAKE 1 TABLET BY MOUTH DAILY lisinopril 10 mg tablet See Rx Instructions .ROUTE .COMPLEX Qty: 90 1RF Dose Instruction: TAKE 1 TABLET BY MOUTH DAILY Rx Instructions: TAKE 1 TABLET BY MOUTH DAILY mirabegron [Myrbetriq] 50 mg tablet extended release 24 hr See Rx Instructions .ROUTE .COMPLEX Qty: 90 0RF Dose Instruction: TAKE 1 TABLET BY MOUTH DAILY Rx Instructions: TAKE 1 TABLET BY MOUTH DAILY (DME) Contour Next Test Strips Strip See Rx Instructions .ROUTE .MEDSUPPLY Qty: 100 3RF Rx Instructions: As directed daily (DME) blood-glucose meter [Contour Meter] Kit See Rx Instructions .ROUTE .MEDSUPPLY Qty: 1 0RF Rx Instructions: As directed (DME) Easy Touch Lancets 32 gauge misc See Rx Instructions .Route Qty: 50 0RF Rx Instructions: check glucose once daily <Leyla Vallecillo PA-C - Last Filed: 01/30/25 10:28> Follow-up/Referrals: Jose Bauer MD [Primary Care Provider] - <Leyla Vallecillo PA-C - Last Filed: 01/30/25 10:28> Time of Disposition: 16:07 <Leyla Vallecillo PA-C - Last Filed: 01/30/25 10:28> 16:07 <Cali Lazo MD - Last Filed: 01/27/25 21:15>
--- OUTSIDE RECORDS SUMMARY | 2025-01-27 13:31 | XMS_ITS ---
Author Organization [facility] Address [address] [place] [address] Care Team Providers Care Boat Puller Name Role Phone Lizette PAUL, Jose Primary Care Provider Vanna Ferrer Unavailable [phone] Sandra Rinaldi Unavailable Unavailable Allergies No Known Allergies REASON FOR VISIT History of hypogammaglobulinemia, previously managed by Dr. Rinaldi. Receives Hizentra every 2 weeks since approximately 2017. Reports illness this Winter that required steroids and antibiotics. Tolerating infusions without issue. Medications Medication SIG (Take, Route, Frequency, Duration) Notes Start Date End Date Status Aspirin 81 MG 1 tab(s) chewed once a day Active Cetirizine HCl 5 MG 1 tab(s) orally once a day Active Cetirizine HCl 10 MG 1 tablet Orally as needed for 30 days Active Cholecalciferol 125 MCG 1 TAB(S) ORALLY ONCE A DAY *Please review and pick correct strength-formulat ion from [employer] options. If intended option is not shown, discontinue and re-order from Quick Search* Active DAPAGLIFLOZIN 10 MG 1 TAB(S) ORALLY ONCE A DAY *Please review for potential replacement for e-prescription and drug interaction check* Active Metoprolol Succinate ER 50 MG 2 tab(s) orally once a day Active Nitroglycerin 0.4 MG 1 tab(s) sublingually every 5 minutes Active HIZENTRA 20% as directed Activ e LISINOPRIL 10 mg 1 tab(s) orally once a day Active Lutein 20 MG 1 cap(s) orally once a day Active Omeprazole 20 MG 1 cap(s) orally once a day Active Rosuvastatin Calcium 20 MG 1 tab(s) orally once a day Active Myrbetriq 50 MG 1 tab(s) orally once a day Active ALBUTEROL (EQV-PROAIR HFA) 90 MCG/INH 2 PUFF(S) INHALED EVERY 6 HOURS *Please review for potential replacement for e-prescription and drug interaction check* Active AMLODIPINE 2.5 mg 1 tab(s) orally once a day Active Hizentra 20% DIRECTED *Please review and pick correct strength-formulat ion from [employer] options. If intended option is not shown, discontinue and re-order from Quick Search* Active Lisinopril 10 MG 1 tab(s) orally once a day Active amLODIPine Besylate 2.5 MG 1 tab(s) orally once a day Active Social History Tobacco Use: Social History Observation Description Date Details (start date - stop date) Never Smoker NA - NA Tobacco Control (Standard) Question Answer Notes Tobacco use: Nonsmoker Vital Signs Blood pressure systolic 133 mm Hg 09/30/20 24 Blood pressure diastolic 89 mm Hg 024 Height 62 in 09/30/2024 Weight 222.8 lbs 09/30/2024 BMI 40.75 kg/m2 09/30/2024 Oximetry 96 % 09/30/2024 Encounters Encounter Location Date Provider Diagnosis [facility] [address] [address] 09/30/2024 Vanna Perez Chronic rhinitis J31 .0 ; Nonfamilial hypogammaglobulinemia D80.1 and Essential (primary) hypertension I10 Assessments Encounter Date Diagnosis (ICD Code) Assessment Notes Treatment Notes Treatment Clinical Notes Section Notes 09/30/2024 Chronic rhinitis (IC D-10 - J31.0) Last visit Denise reported increased nasal congestion and drainage that started after a URI this Winter. - Can continue Flonase as Denise notes benefit, encouraged daily use for better efficacy. - Trialed ipratropium bromide x 3 weeks, which Denise found beneficial. Symptoms have since resolved 09/30/2024 Nonfamilial hypogammaglobulinemia (ICD-10 - D80.1) Denise presented to our office reporting history of CVID, records sent by her dcs engineer, Dr. Rinaldi, also report CVID diagnosis. However, after thorough record review, vaccine challenges were not completed with Denise's initial work-up. Appropriate diagnosis is hypogammaglobuli nemia. Records show IgG level as low as 291 in 06/2016 prior to starting therapy. Denise reports that prior to starting exogenous IgG infusions, she was constantly sick requiring many courses of oral antibiotics and steroids. She is currently on Hizentra, receiving 22 g infusions subcutaneously every 2 weeks. She completes infusions herself. - Record's from Dr. Rinaldi's office were scanned into Denise's chart. - Most recent IgG trough level drawn in May was 848. No interval infections. Denise is tolerating infusions without issue. - Continue Hizentra every two weeks at this time. Denise is to continue premedication with Zyrtec. She is aware to contact the office if any issues arise. - Follow-up in 3-4 months for further evaluation and management 09/30/2024 Essential (primary) hypertension (ICD-10 - I10) BP elevated on PE. Recheck at follow-up and discuss with PMD. No symptoms of hypertensive crisis 09/30/2024 Other Plan Of Treatment Medication Medication Name Sig Start Date Stop Date Notes Cetirizine HCl 10 MG 1 tablet Orally as needed for 30 days HIZENTRA 20% as directed LISINOPRIL 10 mg 1 tab(s) orally once a day AMLODIPINE 2.5 mg 1 tab(s) orally once a day Treatment Notes Assessment Notes Chronic rhinitis Last visit Denise reported increased nasal congestion and drainage that started after a URI this Winter. - Can continue Flonase as Denise notes benefit, encouraged daily use for better efficacy. - Trialed ipratropium bromide x 3 weeks, which Denise found beneficial. Symptoms have since resolved Nonfamilial hypogammaglobulinemia Denise presented to our office reporting history of CVID, records sent by her dcs engineer, Dr. Rinaldi, also report CVID diagnosis. However, after thorough record review, vaccine challenges were not completed with Denise's initial work-up. Appropriate diagnosis is hypogammaglobulinemia. Records show IgG level as low as 291 in 06/2016 prior to starting therapy. Denise reports that prior to starting exogenous IgG infusions, she was constantly sick requiring many courses of oral antibiotics and steroids. She is currently on Hizentra, receiving 22 g infusions subcutaneously every 2 weeks. She completes infusions herself. - Record's from Dr. Rinaldi's office were scanned into Denise's chart. - Most recent IgG trough level drawn in May was 848. No interval infections. Denise is tolerating infusions without issue. - Continue Hizentra every two weeks at this time. Denise is to continue premedication with Zyrtec. She is aware to contact the office if any issues arise. - Follow-up in 3-4 months for further evaluation and management Essential (primary) hypertension BP elev ated on PE. Recheck at follow-up and discuss with PMD. No symptoms of hypertensive crisis Next Appt Details Follow Up: 3 Months, Reason: Evaluation and Management Provider Name:Vanna gong, 03/03/2025 09:30:00 AM, [facility] [address], [address], Procedure Notes * Category Sub-Category Detail Notes Time (Provider Encounter) Time Attestation This follow-up encounter took more than:: more than 30 minutes (42607) Tasks performed during this encounter include:: taking a history, reviewing the patient's review of systems, performing the physical examnation, reviewing laboratory results, reviewing outside medical records, documenting in the EHR Progress Notes * Bola PETERSOB:1945 (7 0 yo F)Acc No.[id number]:09/30/2024 Progress Notes Patient: Denise RODRIGUEZ Provider: Carroll Perez DNP [employer] W[employer] MACHINE-C :1945 A ge:79 Y S ex:Female Date:09/30/2024 Address:[address] [place], [place] [id number] Pcp:Jose Bauer MD Subjective: * Chief Complaints: * H istory of hypogammaglobulinemia, previously managed by Dr. Rinaldi. Receives Hizentra every 2 weeks since approximately 2017. Reports illness this Winter that required steroids and antibiotics. Tolerating infusions without issue. * HPI: * Introduction: I had the pleasure of seeing Clyde Peters, an 41-dyab-[id number] female with past medical history significant for hypertension, DiabetesMellitus and hypogammaglobulinemia who returns today for further evaluation and management. [facility] Denise reports history of hypogammaglobulinemia, previously managed by Dr. Rinaldi,pulmonology, and her team. Denise has been receiving Hizentra infusions since approximately 2015. Prior to this she was experiencing recurrent bronchitis and sinus infections.Now reports minimal infections, was recently sick this Winter and required oralantibiotics of steroids. Other than this, Denise states she has been healthyfor the past six years. Denise completes infusions at home every two weeks, shecompletes infusions herself and denies issues or side effects. Last infusionwas one week ago. She denies interval infections today. Recent IgG trough level drawn in May was 848. No interval antibiotics or steroids. No issues reported with infusions. Denise denies history of upperairway symptoms concerning for uncontrolled atopic disease. Also denies historyof daily lower airway symptoms, however was prescribed an albuterol inhalerwith recent illness. Today, she reports no fevers, chills, night sweats or other constitutional symptoms. * ROS: A LLERGY: runny nose Y es. i tchy eyes Y es. s inus congestion Y es. P ositive p er the HPI and history, otherwise unremarkable. S PECIAL SENSES: Positve for n one. C ONSTITUTIONAL: loss of appetite N o. f ever N o. n ight sweats?Yes. P ositive for n one. E NT: change in voice Y es. P ositive p er the HPI and history, otherwise unremarkable. R ESPIRATORY: Positive p er the HPI and history, otherwise unremakable.? O PHTHALMOLOGY: Positive for p er the HPI and history, otherwise unremarkable. E NDOCRINOLOGY: polydipsia Y es. p olyuria Y es. s leep disturbance Y es. d iabetes Y es. P ositive for n one. C ARDIOLOGY: chest pain N o. l eg edema N o. d izziness N o. P ositive for n one. G ASTROENTEROLOGY: Positive for n one. U ROLOGY: difficulty urinating N o. b lood in urine N o. f requent urination Y es. u rinary incontinence Y es. r ecurrent UTI N o. P ositive for n one. D ERMATOLOGY: rash N o. m ole Y es. l umps N o. d ry or sensitive skin Y es. h lupe (urticaria) N o. a cne N o. s kin cancer N o. P ositive for p er the HPI and history, otherwise unremakable. N EUROLOGY: Positive for n one. H EMATOLOGY/LYMPH: Positive for n one. M USCULOSKELETAL: Positive for n one. P SYCHOLOGY: Positive for n one. A ll other review of systems per the HPI and history, otherwise unremarkable. * Medical History: * Surgical History: p artial hysterectomy ankle repair breast biopsy Gallbladder Removal Toenail removal * Hospitalization/Major Diagno stic Procedure: h ysterectomy * Family History: F ather: , Yes, diagnosed with Hypertension. M other: . S iblings: Yes, diagnosed with Diabetes mellitus type I, Hypertension. C hildren: Yes, diagnosed with Cancer, Diabetes mellitus type I. 1 brother(s) , 2 sister(s) . 5 son(s) . . * Social History: M arital Status What is your marital status? w idowed A lcohol Screening Do you ever drink alcoholic beverages? N o S moking Are you a : n ever smoker R ecreational drug use Have you ever used recreational drugs? N o D etails on consumption of certain products? Do you regularly consume products with aspartame; Equal or NutraSweet? Y es Do you regularly consume products with artificial coloring??No E xercise What kind(s) of exercise do you perform regularly? w alking How often do you perform this exercise? d aily A re any of the following personal care products containing fragrance, dye or preservatives used regularly? Shampoo: Y es Conditioner: N o Soap: Y es Laundry Detergent: Y es Deodorant: Y es Perfume, cologne, after shave: Y es Air freshners or other scented products: Y es Hair coloring dyes or rinses: N o O ccupation Are you currenly employed? N o Have you had any job with high exposure to fumes, chemicals, dust or other noxious substances? N o Are you currently a student? N o E nvironmental History Living environment: p rivate home Where is the home located? [place] How long have you lived there? 5 years or more How many people live in the home? 1 H ome description Basement: N o Smokers in the home? N o Smokers outside the home? N o Air Conditioning? Y es Central Air? Y es Fireplace? N o Wood burning stove? N o Do you vacuum the home? Y es Air purification systems? N o Pillow and mattress dust-proof encasings? N o Do you use a humidifier? N o Do you own any pets? N o Fabric softeners used? N o Plants in the home? N o Is there carpeting in your bedroom? Y es Do you sleep with quilts or blankets or a duvet? Y es T obacco Control (Standard) Tobacco use: N onsmoker * Medications: T akingAMLODIPINE 2.5 mg tablet 1 tab(s) orally once a day LISINOPRIL 10 mg tablet 1 tab(s) orally once a day HIZENTRA 20% solution as directed amLODIPine Besylate 2.5 MG Tablet 1 tab(s) orally once a day Lisinopril 10 MG Tablet 1 tab(s) orally once a day Hizentra 20% SOLUTION DIRECTED , Notes to Pharmacist: *Please review and pick correct strength-formulation from [employer] options. If intended option is not shown, discontinue and re-order from Quick Search*ALBUTEROL (EQV-PROAIR HFA) 90 MCG/INH AEROSOL 2 PUFF(S) INHALED EVERY 6 HOURS , Notes to Pharmacist: *Please review for potential replacement for e-prescription and drug interaction check*Myrbetriq 50 MG Tablet Extended Release 24 Hour 1 tab(s) orally once a day Rosuvastatin Calcium 20 MG Tablet 1 tab(s) orally once a day Omeprazole 20 MG Capsule Delayed Release 1 cap(s) orally once a day Nitroglycerin 0.4 MG Tablet Sublingual 1 tab(s) sublingually every 5 minutes Metoprolol Succinate ER 50 MG Tablet Extended Release 24 Hour 2 tab(s) orally once a day Lutein 20 MG Capsule 1 cap(s) orally once a day DAPAGLIFLOZIN 10 MG TABLET 1 TAB(S) ORALLY ONCE A DAY , Notes to Pharmacist: *Please review for potential replacement for e-prescription and drug interaction check*Cholecalciferol 125 MCG TABLET 1 TAB(S) ORALLY ONCE A DAY , Notes to Pharmacist: *Please review and pick correct strength-formulation from [employer] options. If intended option is not shown, discontinue and re-order from Quick Search*Cetirizine HCl 5 MG Tablet 1 tab(s) orally once a day Aspirin 81 MG Tablet Chewable 1 tab(s) chewed once a day Cetirizine HCl 10 MG Tablet 1 tablet Orally as needed Medication List reviewed and reconciled with the patientTaking AMLODIPINE 2.5 mg tablet 1 tab(s) orally once a day Taking LISINOPRIL 10 mg tablet 1 tab(s) orally once a day Taking HIZENTRA 20% solution as directed Taking amLODIPine Besylate 2.5 MG Tablet 1 tab(s) orally once a day Taking Lisinopril 10 MG Tablet 1 tab(s) orally once a day Taking Hizentra 20% SOLUTION DIRECTED , Notes to Pharmacist: *Please review and pick correct strength-formulation from [employer] options. If intended option is not shown, discontinue and re-order from Quick Search*Taking ALBUTEROL (EQV-PROAIR HFA) 90 MCG/INH AEROSOL 2 PUFF(S) INHALED EVERY 6 HOURS , Notes to Pharmacist: *Please review for potential replacement for e-prescription and drug interaction check*Taking Myrbetriq 50 MG Tablet Extended Release 24 Hour 1 tab(s) orally once a day Taking Rosuvastatin Calcium 20 MG Tablet 1 tab(s) orally once a day Taking Omeprazole 20 MG Capsule Delayed Release 1 cap(s) orally once a day Taking Nitroglycerin 0.4 MG Tablet Sublingual 1 tab(s) sublingually every 5 minutes Taking Metoprolol Succinate ER 50 MG Tablet Extended Release 24 Hour 2 tab(s) orally once a day Taking Lutein 20 MG Capsule 1 cap(s) orally once a day Taking DAPAGLIFLOZIN 10 MG TABLET 1 TAB(S) ORALLY ONCE A DAY , Notes to Pharmacist: *Please review for potential replacement for e-prescription and drug interaction check*Taking Cholecalciferol 125 MCG TABLET 1 TAB(S) ORALLY ONCE A DAY , Notes to Pharmacist: *Please review and pick correct strength-formulation from [employer] options. If intended option is not shown, discontinue and re-order from Quick Search*Taking Cetirizine HCl 5 MG Tablet 1 tab(s) orally once a day Taking Aspirin 81 MG Tablet Chewable 1 tab(s) chewed once a day Taking Cetirizine HCl 10 MG Tablet 1 tablet Orally as needed Medication List reviewed and reconciled with the patient * Allergies: N .K.D.A.no[Allergies Verified] Objective: * Vitals: B P:133/89mm Hg, HR:63/min, Pulse Oximetry:96%, Ht: 62 in, Wt: 222.8 lbs, BMI:40.75Index. * Examination: G eneral examination: General appearance: p leasant, well-developed, well-nourished, female, in no apparent distress, speaking in full sentences. HEENT: c onjunctiva are normal bilaterally. Oral cavity: n ormal, no lesions. Breasts : n ot performed. Heart: R RR, S1-S2, no murmurs, no rubs, no gallops. Lungs: c lear to auscultation in all lung valdovinos, no wheezes or crackles. Neurologic exam: u nremarkable. Back: n ormal. Genitalia: n ot performed. Assessment: * Assessment: 1. N onfamilial hypogammaglobulinemia - D80.1 (Primary) 2 . C hronic rhinitis - J31.0 3 . E ssential (primary) hypertension - I10 Plan: * Treatment: 2. C hronic rhinitis Notes: Last visit Denise reported increased nasal congestion and drainage that started after a URI this Winter. - Can continue Flonase as Denise notes benefit, encouraged daily use for better efficacy. - Trialed ipratropium bromide x 3 weeks, which Denise found beneficial. Symptoms have since resolved? 3. E ssential (primary) hypertension Continue AMLODIPINE tablet, 2.5 mg, 1 tab(s), orally, once a day; C ontinue LISINOPRIL tablet, 10 mg, 1 tab(s), orally, once a day. Notes: BP elevated on PE. Recheck at follow-up and discuss with PMD. No symptoms of hypertensive crisis * Procedures: Oscar gomez (Provider Encounter): Time Attestation T his follow-up encounter took more than: m ore than 30 minutes (84703) T asks performed during this encounter include: t aking a history, reviewing the patient's review of systems, performing the physical examnation, reviewing laboratory results, reviewing outside medical records, documenting in the EHR * Procedure Codes: G 8427 DOC MEDS VERIFIED W/PT OR RE * Preventive Medicine: Counseling: D iet a s tolerated. E xercise C ontinue activity as usual. E ducation: G ENERAL EDUCATION: Our staff spent an additional 30 minutes in direct contact with the patient educating them on their current diagnoses and proper treatment and prevention of symptoms and the proper use of medications. P atient education material sent to portal? Y es C are goal follow up plan BMI management provided Y es Above Normal BMI Follow-up D ietary management education, guidance, and counseling B P Management: LIFESTYLE RECOMMENDATION: H ypertension education FIRST HYPERTENSIVE BP READING FOLLOW-UP PLAN: F ollow-up 1 month REFERRAL TO ALTERNATIVE / PRIMARY CARE PROVIDER: Clyde somers to general physician * Follow Up: 3 Months (Reason: Evaluation and Management) * Billing Information: * Visit Code: 56098 Office Visit, Est Pt., Level 4. Modifiers: 25 * Procedure Codes: G8427 DOC MEDS VERIFIED W/PT OR RE. * LINE OPERATOR Electronically co-signed by Chinedu Flores MD, [facility] on 11/11/2024 at 01:05 PM CAN LINE OPERATOR Sign off status: Completed true * Provider: Carroll Perez DNP [employer]INE-C Date: 1 11/30/2023 Generated for Thuy ng/Fuad/eTransmitting on: 0 01/27/2025 01:30 PM CDT History and Physical Notes * HPI (History of Present Illness) Category Sub-Category Detail Notes Category Not es *Introduction I had the pleasure o f seeing Denise Peters, an 79-year-old female with past medical history significant for hypertension, Diabetes Mellitus and hypogammaglobulinemia who returns today for further evaluation and management. She is alone for today's visit. Denise reports history of hypogammaglobulinemia, previously managed by Dr. Rinaldi, pulmonology, and her team. Denise has been receiving Hizentra infusions since approximately 2016. Prior to this she was experiencing recurrent bronchitis and sinus infections. Now reports minimal infections, was recently sick this Winter and required oral antibiotics of steroids. Other than this, Denise states she has been healthy for the past six years. Denise completes infusions at home every two weeks, she completes infusions herself and denies issues or side effects. Last infusion was one week ago. She denies interval infections today. Recent IgG trough level drawn in May was 848. No interval antibiotics or steroids. No issues reported with infusions. Denise denies history of upper airway symptoms concerning for uncontrolled atopic disease. Also denies history of daily lower airway symptoms, however was prescribed an albuterol inhaler with recent illness. Today, she reports no fevers, chills, night sweats or other constitutional symptoms Examination Category Sub-Category Detail Notes Category Not es General examination HEENT: conjunctiva are kaya l bilaterally Heart: RRR, S1-S2, no murmu rs, no rubs, no gallops Lungs: clear to auscultatio n in all lung valdovinos, no wheezes or crackles General appearance: pleasant, well-devel oped, well-nourished, female, in no apparent distress, speaking in full sentences Neurologic exam: unremarkable Oral cavity: normal, no lesions Breasts : not performed Back: normal Genitalia: not performed
--- OUTSIDE RECORDS SUMMARY | 2025-01-27 13:31 | XMS_ITS | Clinical Summary ---
Author Organization [facility] Address [facility] access hospital[address] [place] [address] Care Team Providers Care Blow Molding Machine Operator Name Role Phone Jose Bauer MD Primary Care Provider [phone] Allergies Active Allergy Reactions Criticality Noted Date Comments Salicylic Acid GI Upset 12/17/2023 Sodium Phosphate GI Upset 12/17/2023 Medications amLODIPine (NORVASC) 2.5 MG tablet 09/29/2023 Active FARXIGA 10 MG tablet 12/15/2023 Active lisinopril (PRINIVIL) 10 MG tablet Take 1 tablet (10 mg total) by mouth daily. 10/21/2023 Active metoprolol succinate ER (TOPROL-XL) 100 MG 24 hr tablet 10/01/2023 Act shahana nitroglycerin (NITROSTAT) 0.[address] 1 tablet (0.4 mg total) under the tongue every 5 (five) minutes as needed. FOR CHEST PAIN 03/20/2023 Active rosuvastatin (CRESTOR) 20 MG tablet Take 1 tablet (20 mg total) by mouth daily. 10/21/2023 Active aspirin 81 MG chewable tablet Chew 1 tablet (81 mg total) by mouth daily. Active Cholecalciferol 50 MCG (1999 UT) Tab Active Cinnamon 500 MG capsule Take 500 mg by mouth daily. Active multiple vitamins-minera ls (OCUVITE-LUTEIN ) Cap Take 1 capsule by mouth daily. Active omeprazole EC (PRILOSEC OTC) 20 MG tablet Take 1 tablet (20 mg total) by mouth daily. Active Multiple Vitamin (ONE-A-DAY 55 PLUS OR) Active lactobacillus (FLORANEX) tablet Take 1 tablet by mouth daily. Active psyllium (METAMUCIL) wafer Take by mouth daily. Active cetirizine (ZYRTEC) 10 MG tablet Take 1 tablet (10 mg total) by mouth daily. Active benzonatate (TESSALON PERLES) 100 MG capsuleIndicati ons:Bronchitis Take 1 capsule (100 mg total) by mouth 3 (three) times daily as needed for Cough. 40 capsule 12/17/2023 Active Active Problems No known active problems Family History Medical History Relation Comments Breast Cancer Neg Hx Social History Tobacco Use Types Packs/Day Years Used Date Smoking Tobacco: Never Smokeless Tobacco: Never Tobacco Cessation:Counseling Given: No Alcohol Use Standard Drinks/Week Comments Not Currently 0 (1 standard drink = 0.6 oz pur e alcohol) PHQ-2 Answer Date Recorded Patient Health Questionnaire-2 Score 0 12/17/2023 Comments Unknown Sex and Gender Information Value Date Recorded Sex Assigned at Not on file Legal Sex Female 4:48 PM CDT Gender Identity Not on file Sexual Orientation Not on file Last Filed Vital Signs Vital Sign Reading Time Taken Comments Blood Pressure 126/81 12/17/2023 7:17 AM PSYCHOLOGY DEPARTMENT CHAIR Pulse 67 12/17/2023 7:05 AM PSYCHOLOGY DEPARTMENT CHAIR Temperature 36.8 C (98.3 F) 12/17/2023 7:05 AM PSYCHOLOGY DEPARTMENT CHAIR Respiratory Rate 24 12/17/2023 7:05 AM PSYCHOLOGY DEPARTMENT CHAIR Oxygen Saturation 100% 12/17/2023 7:05 AM PSYCHOLOGY DEPARTMENT CHAIR Inhaled Oxygen Concentration - - Weight 100.2 kg (221 lb) 12/17/2023 7:05 AM PSYCHOLOGY DEPARTMENT CHAIR Height 165.1 cm (5' 5 ) 12/17/2023 7:05 AM PSYCHOLOGY DEPARTMENT CHAIR Body Mass Index 36.78 12/17/2023 7:05 AM PSYCHOLOGY DEPARTMENT CHAIR Plan of Treatment Health Maintenance Due Date Last Done Comments COVID-19 Vaccine (#1) 1950 DTaP, Tdap and Td Vaccines ( 1 - Tdap) 1963 Zoster Vaccines (1 of 2) 1964 Annual Medicare Wellness Visit 2009 Dexa Scan (General) 2009 Pneumococcal Vaccine: 65+ Ye ars (2 of 2 - PPSV23 or PCV20) 10/31/2016 09/05/2016 RSV Immunization or 60+ Years (1 - 1-dose 75+ series) 2019 Influenza Adult (#1) 2024 PHQ-2 (Physician [place]) 11/19/2024 12/17/2023 PHQ-2 (Physician [place]) 12/17/2024 12/17/2023 Meningococcal B Vaccine Aged Out No l onger eligible based on patient's age to complete this topic Meningococcal Vaccine Aged Out No jose daniel makayla eligible based on patient's age to complete this topic RSV Immunizations Under 20 Months Aged Out No longer eligible based on patient's age to complete this topic Insurance MEDICARE [facility] Care Teams Blow Molding Machine Operator Relationship Specialty Start Date End Date Jose Bauer MD [address] [place], [place] [id number] PCP - General FAMILY PRACTICE 10/07/19
--- OUTSIDE RECORDS SUMMARY | 2025-01-27 13:31 | XMS_ITS ---
Author Organization [facility] Address [address] [place] [address] Care Team Providers Care Machine Shop Repair Technician Name Role Phone Lizette PAUL, Jose Primary Care Provider Vanna Ferrer Unavailable [phone] Sandra Rinaldi Unavailable Unavailable Allergies No Known Allergies REASON FOR VISIT History of hypogammaglobulinemia, previously managed by Dr. Rinaldi. Receives Hizentra every 2 weeks since approximately 2017. Reports illness this Winter that required steroids and antibiotics. Due for next infusion in 9 days. Medications Medication SIG (Take, Route, Frequency, Duration) Notes Start Date End Date Status Lutein 20 MG 1 cap(s) orally once a day Active Cholecalciferol 125 MCG 1 TAB(S) ORALLY ONCE A DAY *Please review and pick correct strength-formulat ion from [employer] options. If intended option is not shown, discontinue and re-order from Quick Search* Active DAPAGLIFLOZIN 10 MG 1 TAB(S) ORALLY ONCE A DAY *Please review for potential replacement for e-prescription and drug interaction check* Active Aspirin 81 MG 1 tab(s) chewed once a day Active Cetirizine HCl 5 MG 1 tab(s) orally once a day Active Metoprolol Succinate ER 50 MG 2 tab(s) orally once a day Active Myrbetriq 50 MG 1 tab(s) orally once a day Active Omeprazole 20 MG 1 cap(s) orally once a day Active Rosuvastatin Calcium 20 MG 1 tab(s) orally once a day Active Nitroglycerin 0.4 MG 1 tab(s) sublingually every 5 minutes Active amLODIPine Besylate 2.5 MG 1 tab(s) orally once a day Active Hizentra 20% DIRECTED *Please review and pick correct strength-formulat ion from [employer] options. If intended option is not shown, discontinue and re-order from Quick Search* Active Lisinopril 10 MG 1 tab(s) orally once a day Active ALBUTEROL (EQV-PROAIR HFA) 90 MCG/INH 2 PUFF(S) INHALED EVERY 6 HOURS *Please review for potential replacement for e-prescription and drug interaction check* Active HIZENTRA 20% as directed Activ e Cetirizine HCl 10 MG 1 tablet Orally as needed for 30 days 05/26/2024 Active AMLODIPINE 2.5 mg 1 tab(s) orally once a day Active LISINOPRIL 10 mg 1 tab(s) orally once a day Active Social History Tobacco Use: Social History Observation Description Date Details (start date - stop date) Never Smoker NA - NA Smoking Smart Form: Question Answer Notes Are you a: never smoker Tobacco Control (Standard) Question Answer Notes Tobacco use: Nonsmoker Vital Signs Blood pressure systolic 145 mm Hg 05/26/20 24 Blood pressure diastolic 97 mm Hg 024 Height 62 in 05/26/2024 Weight 228.3 lbs 05/26/2024 BMI 41.75 kg/m2 05/26/2024 Oximetry 95 % 05/26/2024 Encounters Encounter Location Date Provider Diagnosis [facility] [address] [address] 05/26/2024 Vanna Perez Chronic rhinitis J31 .0 ; Nonfamilial hypogammaglobulinemia D80.1 and Essential (primary) hypertension I10 Assessments Encounter Date Diagnosis (ICD Code) Assessment Notes Treatment Notes Treatment Clinical Notes Section Notes 05/26/2024 Chronic rhinitis (IC D-10 - J31.0) Last visit Denise reported increased nasal congestion and drainage that started after a URI this Winter. - Can continue Flonase as Denise notes benefit, encouraged daily use for better efficacy. - Trialed ipratropium bromide x 3 weeks, which Denise found beneficial. Symptoms have since resolved 05/26/2024 Nonfamilial hypogammaglobulinemia (ICD-10 - D80.1) Denise presented to our office reporting history of CVID, records sent by her financial reporting director, Dr. Rinaldi, also report CVID diagnosis. However, [...] chart. - Most recent IgG trough level per Dr. Rinaldi's records was 874. Order sent today for repeat trough level. - Continue Hizentra every two weeks at this time. Denise typically premedicates with Benadryl, discussed switching to Zyrtec. She is aware to contact the office if any issues arise. - Follow-up in 3-4 months for further evaluation and management 05/26/2024 Essential (primary) hypertension (ICD-10 - I10) BP elevated on PE. Recheck at follow-up and discuss with PMD. No symptoms of hypertensive crisis 05/26/2024 Other Plan Of Treatment Medication Medication Name Sig Start Date Stop Date Notes HIZENTRA 20% as directed Cetirizine HCl 10 MG 1 tablet Orally as needed for 30 days 05/26/2024 AMLODIPINE 2.5 mg 1 tab(s) orally once a day LISINOPRIL 10 mg 1 tab(s) orally once [...] history of CVID, records sent by her financial reporting director, Dr. Rinaldi, also report CVID diagnosis. However, [...] chart. - Most recent IgG trough level per Dr. Rinaldi's records was 874. Order sent today for repeat trough level. - Continue Hizentra every two weeks at this time. Denise typically premedicates with Benadryl, discussed switching to Zyrtec. She is aware to contact the office if any issues arise. - Follow-up in 3-4 months for further evaluation and management Essential (primary) hypertension BP elev ated on PE. Recheck at follow-up and discuss with PMD. No symptoms of hypertensive crisis Pending Test Test Name Order Date -Immunoglobulin G, Qn, Serum 05/26/2024 Next Appt Details Follow Up: 3 Months, Reason: Evaluation and Management Provider Name:Vanna gong, 03/03/2025 09:30:00 AM, [address], [address], [address], Progress Notes * Bola PETERSOB:1945 ([age] yo F)Acc No.[id number]:05/26/2024 Progress Notes Patient: Denise RODRIGUEZ Provider: Carroll Perez DNP LEATHER STAKER-C :1945 A ge:78 Y S ex:Female Date:05/26/2024 Address:[address] [place], [place] [id number] Pcp:Jose Bauer MD Subjective: * Chief Complaints: * H istory of hypogammaglobulinemia, previously managed by Dr. Rinaldi. Receives Hizentra every 2 weeks since approximately 2018. Reports illness this Winter that required steroids and antibiotics. Due for next infusion in 9 days. * HPI: * Introduction: I had the pleasure of seeing Clyde Peters, a [id number] female with past medical history significant for hypertension, DiabetesMellitus and hypogammaglobulinemia who returns today for further evaluation and management. [facility] Denise reports history of hypogammaglobulinemia, previously [...] week ago. She denies interval infections today. She has no complaints. Denise denies history of upperairway symptoms concerning [...] ry or sensitive skin Y es. h ulpe (urticaria) N o. a cne N o. [...] hysterectomy ankle repair breast biopsy Gallbladder Removal * Hospitalization/Major Diagno stic Procedure: h ysterectomy [...] Are you a : n ever smoker S moking Smart Form Are you a: n ever smoker R ecreational drug use [...] Tobacco use: N onsmoker * Medications: T akingamLODIPine Besylate 2.5 MG Tablet 1 tab(s) orally once a day Lisinopril 10 MG Tablet 1 tab(s) orally once a day Hizentra 20% SOLUTION DIRECTED , Notes to Pharmacist: *Please review and pick correct strength-formulation from [employer] options. If intended option is not shown, discontinue and re-order from Quick Search*ALBUTEROL (EQV-PROAIR HFA) 90 MCG/INH AEROSOL 2 PUFF(S) INHALED EVERY 6 HOURS , Notes to Pharmacist: *Please review for potential replacement for e- prescription and drug interaction check*Myrbetriq 50 MG Tablet [...] *Please review and pick correct strength-formulation from [employer] options. If intended option is not shown, discontinue and re-order from Quick Search*Cetirizine HCl 5 MG Tablet 1 tab(s) orally once a day Aspirin 81 MG Tablet Chewable 1 tab(s) chewed once a day Medication List reviewed and reconciled with the patientTaking amLODIPine Besylate 2.5 MG Tablet 1 tab(s) orally once a day Taking Lisinopril 10 MG Tablet 1 tab(s) orally once a day Taking Hizentra 20% SOLUTION DIRECTED , Notes to Pharmacist: *Please review and pick correct strength-formulation from [employer] options. If intended option is not shown, [...] *Please review and pick correct strength-formulation from [employer] options. If intended option is not shown, discontinue and re-order from Quick Search*Taking Cetirizine HCl 5 MG Tablet 1 tab(s) orally once a day Taking Aspirin 81 MG Tablet Chewable 1 tab(s) chewed once a day Medication List reviewed and reconciled with the patient * Allergies: N .K.D.A.no[Allergies Verified] Objective: * Vitals: B P:145/97mm Hg, HR:62/min, Pulse Oximetry:95%, Ht: 62 in, Wt: 228.3 lbs, BMI:41.75Index. * Examination: G eneral examination: General appearance: [...] PMD. No symptoms of hypertensive crisis * Procedure Codes: G 8427 DOC MEDS [...] REFERRAL TO ALTERNATIVE / PRIMARY CARE PROVIDER: R eferral to general physician * Follow Up: 3 Months (Reason: Evaluation and Management) * Billing Information: * Visit Code: 51818 Office Visit, Est Pt., Level 4. Modifiers: 25 * Procedure Codes: G8427 DOC MEDS VERIFIED W/PT OR RE. * Electronically co-signed by Chinedu Flores MD, FAAAAI on 06/07/2024 at 08:56 PM CDT Sign off status: Completed true * Provider: DAR Hilton-C Date: 0 05/26/2024 Generated for Thuy gracia/Fuad/eTransmitting on: 0 01/27/2025 01:30 PM CDT History and Physical Notes * HPI (History of Present Illness) Category Sub-Category Detail Notes Category Not es *Introduction I had the pleasure o f seeing Denise Peters, a 78-year-old female with past medical history significant for [...] week ago. She denies interval infections today. She has no complaints. Denise denies history of upper airway symptoms [...]
--- OUTSIDE RECORDS SUMMARY | 2025-01-27 13:31 | XMS_ITS | Patient Health Record ---
Author Organization [facility] Address [address] [place] [address] Care Team Providers Care Ski Maker Name Role Phone Lizette PAUL, Jose Primary Care Provider Unavaila Vanna Ansari Unavailable [phone] Sandra Rinaldi Unavailable Unavailable [facility], Provider Unavailable Unavailab le Allergies No Known Allergies Reason For Referral No Information Medications Medication SIG (Take, Route, Frequency, Duration) Notes Start Date End Date Status Metoprolol Succinate ER 50 MG 2 tab(s) orally once a day Active Nitroglycerin 0.4 MG 1 tab(s) sublingually every 5 minutes Active Omeprazole 20 MG 1 cap(s) orally once a day Active Rosuvastatin Calcium 20 MG 1 tab(s) orally once a day Active Myrbetriq 50 MG 1 tab(s) orally once a day Active ALBUTEROL (EQV-PROAIR HFA) 90 MCG/INH 2 PUFF(S) INHALED EVERY 6 HOURS *Please review for potential replacement for e-prescription and drug interaction check* Active Hizentra 20% DIRECTED *Please review and pick correct strength-formulat ion from [employer] options. If intended option is not shown, discontinue and re-order from Quick Search* Active Aspirin 81 MG 1 tab(s) chewed once a day Active Cetirizine HCl 5 MG 1 tab(s) orally once a day Active HIZENTRA 20% as directed Activ e Cetirizine HCl 10 MG 1 tablet Orally as needed for 30 days Active AMLODIPINE 2.5 mg 1 tab(s) orally once a day Active Lisinopril 10 MG 1 tab(s) orally once a day Active LISINOPRIL 10 mg 1 tab(s) orally once a day Active amLODIPine Besylate 2.5 MG 1 tab(s) orally once a day Active Cholecalciferol 125 MCG 1 TAB(S) ORALLY ONCE A DAY *Please review and pick correct strength-formulat ion from [employer] options. If intended option is not shown, discontinue and re-order from Quick Search* Active DAPAGLIFLOZIN 10 MG 1 TAB(S) ORALLY ONCE A DAY *Please review for potential replacement for e-prescription and drug interaction check* Active Lutein 20 MG 1 cap(s) orally once a day Active Social History Tobacco Use: Social History Observation Description Date Details (start date - stop date) Never Smoker NA - NA Tobacco Control (Standard) Question Answer Notes Tobacco use: Nonsmoker Problems Problem Type SNOMED Code ICD Code Onset Dates Problem Status W/U Status Risk Notes Problem Hypogammaglobulinemi a (792491514) Nonfamilial hypogammaglobulinemi a (D80.1) Active confirmed Problem 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, 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 Problem Essential hypertensi on (31523211) Essential (primary) hypertension (I10) Active confirmed Problem Chronic rhinitis (27173960) Chronic rhinitis (J31.0) Active confirmed Vital Signs Oximetry 96 % 09/30/2024 Blood pressure diastolic 89 mm Hg 09/30/2024 Height 62 in 09/30/2024 Blood pressure systolic 133 mm Hg 09/30/2024 Weight 222.8 lbs 09/30/2024 BMI 40.75 kg/m2 09/30/2024 Encounters Encounter Location Date Provider Diagnosis [address] [address] 05/03/2024 Provider [facility] Nonfamilial hypogammaglobulinemia D80.1 and Essential (primary) hypertension I10 [facility] [address] [place] [address] [address] 03/18/2024 Vanna Perez Chronic rhinitis J31 .0 ; Nonfamilial hypogammaglobulinemia D80.1 and Essential (primary) hypertension I10 [facility] [address] [place], [place] [address] [address] [address] 05/26/2024 Vanna Perez Chronic rhinitis J31 .0 ; Nonfamilial hypogammaglobulinemia D80.1 and Essential (primary) hypertension I10 [facility] [address] [facility] [address] [place] [address] 09/30/2024 Vanna Perez Chronic rhinitis J31 .0 ; Nonfamilial hypogammaglobulinemia D80.1 and Essential (primary) hypertension I10 [facility] [address] [place] [address] 02/07/2024 Vanna Perez [facility] [address] [place] [address] 03/04/2024 Vanna Perez [facility] [place] [address] [place] [address] 03/11/2024 Vanna Perez [facility] [address] [facility] [address] [place] [address] 03/24/2024 Vanna Perez Assessments Encounter Date Diagnosis (ICD Code) Assessment Notes Treatment Notes Treatment Clinical Notes Section Notes 03/18/2024 Nonfamilial hypogammaglobulinemia (ICD-10 - D80.1) Denise presented to our office reporting history of CVID, records sent by her roller, Dr. Rinaldi, also report CVID diagnosis. However, [...] every 2 weeks. She completes infusions herself. Denise is due for her next infusion in 8 days. - Record's from Dr. Rinaldi's office were scanned into Denise's chart. - Most recent IgG trough level per Dr. Rinaldi's records was 874. - Referral updated and sent to Cecelia, biologics coordinator, for further guidance on transferring infusions to our office 03/18/2024 Chronic rhinitis (IC D-10 - J31.0) Last visit Denise reported increased nasal congestion and drainage that started after a URI this Winter. - Can continue Flonase as Denise notes benefit, encouraged daily use for better efficacy. - Trialed ipratropium bromide x 3 weeks, which Denise found beneficial. Symptoms have since resolved 05/03/2024 Nonfamilial hypogammaglobulinemia (ICD-10 - D80.1) 05/26/2024 Nonfamilial hypogammaglobulinemia (ICD-10 - D80.1) Denise presented to our office reporting history of CVID, records sent by her roller, Dr. Rinaldi, also report CVID diagnosis. However, [...] months for further evaluation and management 05/26/2024 Chronic rhinitis (IC D-10 - J31.0) [...] history of CVID, records sent by her roller, Dr. Rinaldi, also report CVID diagnosis. However, [...] months for further evaluation and management 09/30/2024 Chronic rhinitis (IC D-10 - J31.0) Last visit Denise reported increased nasal congestion and drainage that started after a URI this Winter. - Can continue Flonase as Denise notes benefit, encouraged daily use for better efficacy. - Trialed ipratropium bromide x 3 weeks, which Denise found beneficial. Symptoms have since resolved 09/30/2024 Essential (primary) hypertension (ICD-10 - I10) BP elevated on PE. Recheck at follow-up and discuss with PMD. No symptoms of hypertensive crisis 05/26/2024 Essential (primary) hypertension (ICD-10 - I10) BP elevated on PE. Recheck at follow-up and discuss with PMD. No symptoms of hypertensive crisis 05/03/2024 Essential (primary) hypertension (ICD-10 - I10) 03/18/2024 Essential (primary) hypertension (ICD-10 - I10) BP elevated on PE. Recheck at follow-up and discuss with PMD. No symptoms of hypertensive crisis 03/18/2024 Other 05/26/2024 Other 09/30/2024 Other Plan Of Treatment Pending Test Test Name Order Date -Immunoglobulin G, Qn, Serum 05/26/2024 Next Appt Details Provider Name:Vanna gong, 03/03/2025 09:30:00 AM, [address] [employer], [address], [address], Insurance Providers Payer Name Payer Address Payer Phone Subscriber Number Group Number Insured Name Patient Relationship to Insured Coverage Start Date Coverage End Date [facility] (Medicare) Attention Claims [address] [place] [address] [id number] Denise Coker Self - patient is the insured [facility] [address] [place] [address] [id number] Denise Coker Self - patient is the insured Medical (General) History Medical History History ICD Code Type II diabetes Hypertension Surgical History Surgery Date(Month/Year) partial hysterectomy ankle repair breast biopsy Gallbladder Removal Toenail removal Hospitalization History Reason Date(Month/Year) hysterectomy
--- OUTSIDE RECORDS SUMMARY | 2025-01-27 13:31 | XMS_ITS ---
Author Organization [facility] Address [address] [place] [address] Care Team Providers Care Piano Regulator Name Role Phone Lizette PAUL, Jose Primary Care Provider Unavaila Vanna Ansari Unavailable [phone] Sandra Rinaldi Unavailable Unavailable [facility]-Migration, Provider Unavailable Unavailab le REASON FOR VISIT [facility] To [facility] Conversion Encounter Medications Medication SIG (Take, Route, Frequency, Duration) Notes Start Date End Date Status Hizentra 20% DIRECTED *Please review and pick correct strength-formulat ion from [employer] options. If intended option is not shown, discontinue and re-order from Quick Search* Active Myrbetriq 50 MG 1 tab(s) orally once a day Active Omeprazole 20 MG 1 cap(s) orally once a day Active Rosuvastatin Calcium 20 MG 1 tab(s) orally once a day Active Lisinopril 10 MG 1 tab(s) orally once a day Active Cholecalciferol 125 MCG 1 TAB(S) ORALLY ONCE A DAY *Please review and pick correct strength-formulat ion from [employer] options. If intended option is not shown, discontinue and re-order from Quick Search* Active Aspirin 81 MG 1 tab(s) chewed once a day Active ALBUTEROL (EQV-PROAIR HFA) 90 MCG/INH 2 PUFF(S) INHALED EVERY 6 HOURS *Please review for potential replacement for e-prescription and drug interaction check* Active Cetirizine HCl 5 MG 1 tab(s) orally once a day Active amLODIPine Besylate 2.5 MG 1 tab(s) orally once a day Active DAPAGLIFLOZIN 10 MG 1 TAB(S) ORALLY ONCE A DAY *Please review for potential replacement for e-prescription and drug interaction check* Active Lutein 20 MG 1 cap(s) orally once a day Active Metoprolol Succinate ER 50 MG 2 tab(s) orally once a day Active Nitroglycerin 0.4 MG 1 tab(s) sublingually every 5 minutes Active Encounters Encounter Location Date Provider Diagnosis [facility] - [address] [address] 05/03/2024 Provider ZZ-Migration 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 If intended option is not shown, discontinue and re-order from Quick Search* Lisinopril 10 MG 1 tab(s) orally once a day amLODIPine Besylate 2.5 MG 1 tab(s) orally once a day Next Appt Details Provider Name:Vanna gong, 03/03/2025 09:30:00 AM, 2022 [facility], [address] [place] [address], [id number], Progress Notes * Bola PETERSOB:1945 ([age] yo F)Acc No.[id number]:05/03/2024 Patient: Denise RODRIGUEZ Provider: Judd Guzmán :1945 A ge:78 Y S ex:Female Date:05/03/2024 Address:[address] [place], [place] [id number] Pcp:Jose Bauer MD Subjective: * Chief Complaints: * [facility] . [facility] * Medical History: * Medications: T aking ALBUTEROL (EQV-PROAIR HFA) 90 MCG/INH AEROSOL 2 PUFF(S) INHALED EVERY 6 HOURS , Notes to Pharmacist: *Please review for potential replacement for e-prescription and drug interaction check*, Taking Myrbetriq 50 MG Tablet Extended Release 24 Hour 1 tab(s) orally once a day , Taking Rosuvastatin Calcium 20 MG Tablet 1 tab(s) orally once a day , Taking Omeprazole 20 MG Capsule Delayed Release 1 cap(s) orally once a day , Taking Nitroglycerin 0.4 MG Tablet Sublingual 1 tab(s) sublingually every 5 minutes , Taking Metoprolol Succinate ER 50 MG Tablet Extended Release 24 Hour 2 tab(s) orally once a day , Taking Lutein 20 MG Capsule 1 cap(s) orally once a day , Taking DAPAGLIFLOZIN 10 MG TABLET 1 TAB(S) ORALLY ONCE A DAY , Notes to Pharmacist: *Please review for potential replacement for e-prescription and drug interaction check*, Taking Cholecalciferol 125 MCG TABLET 1 TAB(S) ORALLY ONCE A DAY , Notes to Pharmacist: *Please review and pick correct strength-formulation from [employer] options. If intended option is not shown, discontinue and re-order from Quick Search*, Taking Cetirizine HCl 5 MG Tablet 1 tab(s) orally once a day , Taking Aspirin 81 MG Tablet Chewable 1 tab(s) chewed once a day Objective: * Vitals: Assessment: * Assessment: 1. N onfamilial hypogammaglobulinemia - D80.1 (Primary) 2 . E ssential (primary) hypertension - I10 Plan: * Treatment: 2. E ssential (primary) hypertension Continue amLODIPine Besylate Tablet, 2.5 MG, 1 tab(s), orally, once a day; C ontinue Lisinopril Tablet, 10 MG, 1 tab(s), orally, once a day. * Billing Information: * Visit Code: * Procedure Codes: * Electronic signature of Kaleb GRIFFIN-Migration on 01/27/2025 at 01:31 PM CDT Sign off status: Pending * Provider: Judd anthony Migration Date: 0 05/03/2024 Generated for Thuy gracia/Fuad/Edith on: 01/27/2025 01:31 PM CDT
--- OUTSIDE RECORDS SUMMARY | 2025-01-27 13:31 | XMS_ITS | Encounter Summary ---
Author Organization [facility] Address [address] [place] [address] Care Team Providers Care Director Of Corporate Sales Name Role Phone Jose Bauer MD Primary Care Provider Encounter Details Date Type Department Care Team (Late st Contact Info) Description 10/29/2015 Abstract [facility] CONVERSION [address] [place] [address] , Generic Conversion, Social History Tobacco Use Types Packs/Day Years Used Date Smoking Tobacco: Never Assessed Comments Unknown Sex and Gender Information Value Date Recorded Sex Assigned at Not on file Legal Sex Female 4:48 PM CDT Gender Identity Not on file Sexual Orientation Not on file documented as of this encounter Plan of Treatment Not on file documented as of this encounter Visit Diagnoses Not on filedocumented in this encounter Additional Health Concerns Infection Onset Date Last Indicated Resolved Time COVID-19 Rule Out 10/16/2022 10/16/2022 10/16/2022 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
[2025-01-27 13:58] LABS: Basophils Percent Auto 0.3 % (0.2-1.2); Eosinophils Absolute Auto 0.1 K/mm3 (0-0.3); Eosinophils Percent Auto 1.4 % (0-4.4); Hematocrit 41.8 % (37.0-47.0); Hemoglobin 13.9 g/dL (12.0-15.0); Immature Granulocyte Absolute 0.03 K/mm3 (0.00-0.031); Immature Granulocyte Percent A 0.3 % (0-0.5); Lymphocytes Absolute Auto 1.94 K/mm3 (0.9-3.2); Lymphocytes Percent Auto 22.3 % (18.3-44.2); Mean Corpuscular HGB Conc 33.3 g/dl (32-36); Mean Corpuscular Hemoglobin 30.8 pg (26-34); Mean Corpuscular Volume 92.7 fl (80-100); Mean Platelet Volume 9.8 fl (7.4-10.4); Monocytes Absolute Auto 0.7 K/mm3 (0.1-0.6); Monocytes Percent Auto 7.8 % (2.6-8.5); Neutrophils Absolute Auto 5.9 K/mm3 (1.3-6.7); Neutrophils Percent Auto 67.9 % (45.5-73.1); Platelet Count Result 156 k/mm3 (150-375); Red Blood Count 4.51 M/mm3 (4.2-5.4); Red Cell Distribution Width 13.8 % (11.5-14.5); White Blood Count 8.7 K/mm3 (4.5-10.0)
[2025-01-27 14:17] LABS: Anion Gap 10 mmol/L (4-12); Blood Urea Nitrogen 19 mg/dL (7-17); CRP 1.9 mg/dL (<1.0); Calcium 8.9 mg/dL (8.4-10.2); Carbon Dioxide 23 mmol/L (22-30); Chloride 106 mmol/L (98-107); Estimated CRCL calculation 90 ml/min; Estimated Glomerular Filt Rate > 60; Glucose 144 mg/dL (65-110); Potassium 3.9 mmol/L (3.4-5.0); Sodium 139 mmol/L (137-145)
[2025-01-27 15:09] VITALS: BP 130/62; PULSE 67; RESP 16; TEMP 36.6; O2SAT 99
[2025-01-27 15:25] LABS: Erythrocyte Sedimentation Rate 20 mm/hr (0-20)
--- OUTSIDE RECORDS SUMMARY | 2025-01-27 15:34 | XMS_ITS | Encounter Summary ---
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
--- OUTSIDE RECORDS SUMMARY | 2025-01-27 15:34 | XMS_ITS | Data Portability ---
Author Organization [place] [employer] [facility], Main Office Address [address] [place] [address] Care Team Providers Care Resident Intern Name Role Phone VICKI DURÁN Primary Care Provider [phone] VICKI DURÁN Referring Provider [phone] Assessment Encounter Date Assessment Date Assessment LastModified by Organization Details LastModified Time 04/07/2024 04/07/2024 This note is dictated and transcribed by [employer]. Sr. Pricing Analyst variances may occur. Despite proofreading, typographical errors may occur. Occasional wrong-word or vswsy-o-uwar substitutions may have occurred due to the inherent limitations of voice recording. Read the chart carefully and recognize, using context, where substitutions have occurred. Not available 04/07/2024 14:07:32 06/12/2024 06/12/2024 This note is dictated and transcribed by [employer]. Sr. Pricing Analyst variances may occur. Despite proofreading, typographical errors may occur. Occasional wrong-word or 'rbxoj-d-fuys' substitutions may have occurred due to the inherent limitations of voice recording. Read the chart carefully and recognize, using context, where substitutions have occurred. Not available 06/12/2024 10:29:51 08/12/2024 08/12/2024 This note is dictated and transcribed by [employer]. Sr. Pricing Analyst variances may occur. Despite proofreading, typographical errors may occur. Occasional wrong-word or 'utoip-s-woga' substitutions may have occurred due to the inherent limitations of voice recording. Read the chart carefully and recognize, using context, where substitutions have occurred. Not available 08/12/2024 11:49:40 08/18/2024 08/18/2024 This note is dictated and transcribed by [employer]. Sr. Pricing Analyst variances may occur. Despite proofreading, typographical errors may occur. Occasional wrong-word or 'msevi-p-llmk' substitutions may have occurred due to the inherent limitations of voice recording. Read the chart carefully and recognize, using context, where substitutions have occurred. Not available 08/18/2024 12:27:42 Plan of Treatment Reminders Order Date Submit Date Provider Last Modified By Organization Details Last Modified Time Details Appointments Establish ed Patient 15 2024 10:00A Clement Eaton DPM Not available Not available Not available Lab None recorded. Referral None recorded. Procedures None recorded. Surgeries None recorded. Imaging None recorded. Medication Orders ketoconaz ole 2 % topical cream 2023 024 [id number] [address], [place], [phone], 08/18/2024 12:28:45 Patient TargetsNo targets recorded. Patient InstructionsNo instructions recorded. Reason for Referral None Reported. Problems Name Problem SNOMED Code Status Onset Date Resolution Date Notes Provider Name and Address Organization Details Recorded Time Paronychi a of toe of left foot 03846419110 662007 Completed 201802/03/2021 Not Available [facility] 3 02:50:48 Paronychi a of toe of right foot 23727988247 528993 Completed 201802/03/2021 Not Available [facility] 3 02:50:48 Pain in both feet 84284204589 741698 Active 2021 Not Available [facility] 3 02:50:48 Foot callus 912143018 Active 2018 Not Available [facility] 3 02:50:48 Headache 81189897 Active 2017 Not Available [facility] 3 02:50:48 Injury of toe 900683801 Completed 201902/03/2021 Not Available [facility] 3 02:50:48 Unable to cut own toenails 800039336 Active 2019 Not Available [facility] 3 02:50:48 Bronchiti s 23734787 Active 2017 Not Available [facility] 3 02:50:49 Ingrowing nail 396070470 Completed 201802/03/2021 Not Available [facility] 3 02:50:49 Obesity 698141095 Active 2017 Not Available [facility] 3 02:50:49 Diabetic periphera l neuropath y 583866262 Completed 201711/01/2021 Silverio Eaton DPM [address], [address], [place], [address] , [employer] 4 11:09:56 Dystrophi a unguium 77230647 Active 2017 Not Available [facility] 3 02:50:49 Subungual hematoma of great toe of left foot 12945501657 564922 Active 2023 Silverio Eaton DPM [address], [address], [place], [address] , [employer] 4 13:09:46 Pain in toe 851847357 Active 2023 Silverio Eaton DPM [address], [address], [place], [address] , [employer] 4 14:10:35 Pain of toe of left foot 72291906808 9108 Active 2023 Silverio Eaton DPM [address], [address], [place], [address] , [employer] 4 10:46:06 Diabetic periphera l neuropath y 772068343 Active 2023 Silverio Eaton DPM [address], [address], [place], [address] , [employer] 4 11:09:55 Notes:eye problems Problem Notes None recorded. Procedures Surgical History Date Name Laterality Status Provider Name and Address Organization Details Recorded Time 4 Nail Debridement completed Silverio Eaton DPM [address], [address], [place], [address], [facility] 11/03/2024 11:09:08 4 Nail Debridement completed Silverio Eaton DPM [address], [address], [place], [address], [facility] 08/12/2024 11:49:27 4 Toenail avulsion completed Silverio Eaton DPM [address], [address], [place], [address], [facility] 08/12/2024 11:49:10 4 Nail Debridement completed Silverio Eaton DPM [address], [address], [place], [address], [facility] 06/12/2024 10:45:42 4 Nail Debridement completed Silverio Eaton DPM [address], [address], [place], [address], [facility] 04/07/2024 14:09:35 4 Callus Debridement, One completed Silverio Eaton DPM [address], [address], [place], [address], [facility] 04/07/2024 14:09:52 4 Nail Debridement completed Silverio Eaton DPM [address], [address], [place], [address], [facility] 01/07/2024 13:09:13 4 Callus Debridement, One completed Silverio Eaton DPM [address], [address], [place], [address], [facility] 01/07/2024 13:09:19 3 Nail Debridement completed Silverio Eaton DPM [address], [address], [place], [address], [facility] 08/20/2023 11:34:15 3 Callus Debridement, One completed Silverio Eaton DPM [address], [address], [place], [address], [employer] [facility] [employer] 08/20/2023 11:34:19 3 Nail Debridement completed Silverio Eaton DPM [address], [address], [place], [address], [employer] [facility] [employer] [facility] 05/21/2023 14:19:56 3 Callus Debridement, One completed Silverio Eaton DPM [address], [address], [place], [address], [employer] [facility] [employer] [facility] 05/21/2023 14:20:06 3 Nail Debridement completed Silverio Eaton DPM [address], [place], [address], [employer] [facility] [employer] 03/01/2023 15:21:29 Imaging Results None recorded. Procedure Notes None recorded. Medical Equipment None Reported. Allergies No known drug allergies Medications Name Sig Start Date Stop Date Status Note LastModified by Organization Details LastModified Time prednisone 10 mg tablet 04/07 completed Not Available Not Available Not Available doxycycline hyclate 100 mg capsule TAKE 1 CAPSULE BY MOUTH TWICE DAILY FOR 5 DAYS 05/01 completed Not Available Not Available Not Available carvedilol 12.5 mg tablet TK 1 T PO BID WF 11/07 completed Not Available Not Available Not Available clindamycin HCl 300 mg capsule TAKE ONE CAPSULE BY MOUTH EVERY 8 HOURS FOR 7 DAYS 05/01 completed Not Available Not Available Not Available cetirizine 10 mg tablet TAKE 1 TABLET BY MOUTH EVERY DAY NEEDED active Not Available Not Available No t Available benazepril 5 mg tablet TAKE 1 TABLET BY MOUTH DAILY 06/12 completed Not Available Not Available Not Available acetazolami de ER 500 mg capsule,ext ended release TK ONE CAPSULE BY MOUTH BID FOR THREE DAYS 01/18 completed Not Available Not Available Not Available ofloxacin 0.3 % eye drops INSTILL ONE DROP INTO THE LEFT EYE QID FOR SEVEN DAYS 01/18 completed Not Available Not Available Not Available metoprolol succinate ER 50 mg tablet,exte nded release 24 hr TAKE 1 TABLET BY MOUTH DAILY active Not Available Not Available No t Available hydrocodone 5 mg-acetamin ophen 325 mg tablet TAKE 1 TABLET BY MOUTH EVERY 4-6 HOURS NEEDED FOR PAIN 04/07 completed Not Available Not Available Not Available metoprolol succinate ER 100 mg tablet,exte nded release 24 hr TAKE 2 TABLETS BY MOUTH DAILY active Not Available Not Available No t Available amlodipine 2.5 mg tablet active Not Available Not Available Not Available acetaminoph en 300 mg-codeine 30 mg tablet TAKE 1 TABLET BY MOUTH EVERY 6 HOURS NEEDED FOR COUGH 06/12 completed Not Available Not Available Not Available ketorolac 0.5 % eye drops 09/11 completed Not Available Not Available Not Available prednisolon e acetate 1 % eye drops,suspe nsion INSTILL ONE DROP INTO THE LEFT EYE QID 01/18 completed Not Available Not Available Not Available benzonatate 100 mg capsule 08/18 completed Not Available Not Available Not Available cephalexin 500 mg capsule TAKE 1 CAPSULE BY MOUTH FOUR TIMES DAILY TILL GONE 05/01 completed Not Available Not Available Not Available lisinopril 10 mg tablet TAKE 1 TABLET BY MOUTH DAILY active Not Available Not Available No t Available nitroglycer in 0.[address] 1 TABLET UNDER THE TONGUE EVERY 5 MINUTES NEEDED FOR CHEST PAIN active Not Available Not Available No t Available montelukast 10 mg tablet TK 1 T PO D 11/07 completed Not Available Not Available Not Available Baby Aspirin 81 mg chewable tablet Chew 1 tablet every day by oral route. active Not Available Not Available No t Available levofloxaci n 500 mg tablet 06/12 completed Not Available Not Available Not Available albuterol sulfate HFA 90 mcg/actuati on aerosol inhaler INHALE 2 PUFFS BY MOUTH EVERY 6 HOURS NEEDED FOR SHORTNESS OF BREATH / WHEEZING active Not Available Not Available No t Available ipratropium bromide 42 mcg (0.06 %) nasal spray USE 2 SPRAYS IN EACH NOSTRIL THREE TIMES DAILY active Not Available Not Available No t Available ketoconazol e 2 % topical cream APPLY TO THE AFFECTED AREA OF LEFT GREAT TOE ONCE DAILY active Not Available Not Available No t Available cefdinir 300 mg capsule TAKE 1 CAPSULE BY MOUTH EVERY 12 HOURS FOR 10 DAYS 04/07 completed Not Available Not Available Not Available fluticasone propionate 50 mcg/actuati on nasal spray,suspe nsion U 1 SPR IEN IEN BID 06/12 completed Not Available Not Available Not Available ipratropium bromide 21 mcg (0.03 %) nasal spray U 2 SPRAYS IEN QID 03/13 completed Not Available Not Available Not Available Microlet Lancet USE ONCE DAILY active Not Available Not Available No t Available tobramycin 0.3 %-dexametha sone 0.1 % eye drops,suspe nsion 03/13 completed Not Available Not Available Not Available Vitamin D3 25 mcg (1,000 unit) capsule Take 1 capsule every day by oral route. 2017 active Not Available Not Available Not Avai lable rosuvastati n 20 mg tablet TAKE 1 TABLET BY MOUTH DAILY active Not Available Not Available No t Available fenofibrate 160 mg tablet TK 1 T PO D 01/18 completed Not Available Not Available Not Available Multiple Vitamin, Womens 1 DAILY 2017 active Not Available Not Available Not Avai lable Cinnamon 05/14 completed Not Available Not Available Not Available Desha Ultra Saline Mist nasal Take by nasal route. 03/13 completed Not Available Not Available Not Available Zyrtec 10 mg capsule Take 1 capsule every day by oral route. 2017 active Not Available Not Available Not Avai lable Hizentra 2 gram/10 mL (20 %) subcutaneou s solution active Not Available Not Available N ot Available Micro Thin Lancets 33 gauge USE TO TEST DAILY. active Not Available Not Available No t Available Probiotic 1 DAILY 2017 active Not Available Not Available Not Avai lable Contour Next Test Strips USE DIRECTED EVERY DAY active Not Available Not Available No t Available Myrbetriq 50 mg tablet,exte nded release TAKE 1 TABLET BY MOUTH DAILY active Not Available Not Available No t Available Contour Next Meter U UTD 09/11 completed Not Available Not Available Not Available Farxiga 10 mg tablet TAKE 1 TABLET BY MOUTH EVERY MORNING active Not Available Not Available No t Available Fluzone High-Dose 5403-2926 (PF) 180 mcg/0.5 mL intramuscul ar syringe ADM 0.5ML IM UTD 08/18 completed Not Available Not Available Not Available Fluzone High-Dose (PF) 180 mcg/0.5 mL intramuscul ar syringe ADM 0.5ML IM UTD 08/18 completed Not Available Not Available Not Available Fluzone High-Dose 2019-20 (PF) 180 mcg/0.5 mL intramuscul ar syringe ADM 0.5ML IM UTD 08/18 completed Not Available Not Available Not Available Hizentra 2 gram/10 mL (20 %) subcutaneou s syringe active Not Available Not Available No t Available BinaxNOW COVID-19 Ag Self Test kit TEST DIRECTED TODAY 04/07 completed Not Available Not Available Not Available Hizentra 10 gram/50 mL (20 %) subcutaneou s syringe active Not Available Not Available No t Available Vitals Date Recorded Body height Heart rate Respiratory rate Oxygen saturation Oxygen saturation in Arterial blood by Pulse oximetry Systolic blood pressure Diastolic blood pressure Provider Name and Address Organization Details Last Updated DateTime 4 165.1 cm 57 /min 14 /min 98 % 98 % 124 mm[Hg] 65 mm[Hg] Tonie Gordillo [facility] [employer] [facility] 4 11:36:52 Date Recorded Body height Body mass index (BMI) Body weight Heart rate Respiratory rate Body temperature Oxygen saturation Oxygen saturation in Arterial blood by Pulse oximetry Systolic blood pressure Diastolic blood pressure Provider Name and Address Organization Details Last Updated DateTime 4 165.1 cm 36.9 kg/m2 706186. 51 g 67 /min 16 /min 98 [degF] 98 % 98 % 120 mm[Hg] 80 mm[Hg] Jaclyn Arthur [facility] [employer] [facility] 4 10:17:56 Date Recorded Body height Body mass index (BMI) Body weight Heart rate Respiratory rate Oxygen saturation Oxygen saturation in Arterial blood by Pulse oximetry Systolic blood pressure Diastolic blood pressure Provider Name and Address Organization Details Last Updated DateTime 4 165.1 cm 36.9 kg/m2 942200. 51 g 68 /min 14 /min 99 % 99 % 125 mm[Hg] 70 mm[Hg] Tonie Gordillo [facility] [employer] [facility] 4 10:45:43 Date Recorded Body height Body mass index (BMI) Body weight Heart rate Respiratory rate Oxygen saturation Oxygen saturation in Arterial blood by Pulse oximetry Systolic blood pressure Diastolic blood pressure Provider Name and Address Organization Details Last Updated DateTime 4 165.1 cm 36.9 kg/m2 968387. 51 g 78 /min 14 /min 98 % 98 % 138 mm[Hg] 78 mm[Hg] Tonie OROURKE [employer] 11:40:05 Date Recorded Body height Body mass index (BMI) Body weight Provider Name and Address Organization Details Last Updated DateTime 11/03/2024 165.1 cm 36.9 kg/m2 560065.51 g Tonie OROURKE [employer] 11/03/2024 10:15:24 Social History None recorded. Functional Status None recorded. Mental Status None recorded. Family History Relationship Description Onset Age of this Age Resolved Age Notes LastModified by Organization Details LastModified Time Brother Diabetes mellitus [id number] Not available 05/20 10:19:18 Notes:stroke - father, cance r - son, brother Medical History Condition Response HYPERTENSION Y Gynecological HistoryNo gynecological history recorded. Obstetrics History GPAL:G 0 P 0 0 0 0 Past Encounters Encounter ID Performer Location Encounter Start Date Encounter Closed Date Diagnosis/Indication Diagnosis SNOMED-CT Code Diagnosis ICD10 Code Diagnosis Note [id number] _ATHENA_M IGRATION_ DEFAULT_1 _1 , 01/31/2021 00:00:00 02/03/2021 19:00:09 [id number] _ATHENA_M IGRATION_ DEFAULT_1 _1 , 05/02/2021 00:00:00 05/02/2021 11:31:47 [id number] _ATHENA_M IGRATION_ DEFAULT_1 _1 , 08/01/2021 00:00:00 08/02/2021 16:00:00 [id number] _ATHENA_M IGRATION_ DEFAULT_1 _1 , 10/31/2021 00:00:00 11/01/2021 15:14:30 [id number] _ATHENA_M IGRATION_ DEFAULT_1 _1 , 01/30/2022 00:00:00 02/16/2022 08:44:54 [id number] _ATHENA_M IGRATION_ DEFAULT_1 _1 , 05/01/2022 00:00:00 05/01/2022 15:09:45 [id number] _ATHENA_M IGRATION_ DEFAULT_1 _1 , 08/14/2022 00:00:00 08/14/2022 14:24:24 [id number] [facility] [place] [address] [place] [address] 11/30/2022 00:00:00 11/30/2022 15:27:51 [id number] Silverio Eaton DPM [facility] [place] [address] [place], [place] [address] 03/01/2023 13:37:59 03/14/2023 10:17:28 Dystrophia unguium 75128268 L60.3 Nails 1 through 10 were debrided with sharp mechanical debridemen t without incident. Nails were debrided and greater than 50% length and thickness where needed. Unable to cut own toenails 156379960 Z74.1 [id number] Silverio Eaton DPM [facility] Pod[facility] [place] [address] [place] [address] 05/21/2023 10:39:00 05/23/2023 11:29:20 Foot callus 586173733 L84 Debrided callus without incidentRe commend continuing offloading and wide shoe gearMonito r area daily to ensure no wounds present if present seek medical attention immediatel [facility]Follow[facility] 3 months as needed Dystrophia unguium 54721 009 L60.3 Nails 1 through 10 were debrided with sharp mechanical debridemen t without incident. Nails were debrided and greater than 50% length and thickness where needed.fol low-up 3 months as needed Unable to cut own toenails 102279139 Z74.1 [id number] Silverio Eaton DPM [facility] [place] [address] [place] [address] 08/20/2023 10:52:44 08/20/2023 11:53:03 Dystrophia unguium 11403290 L60.3 Nails 1 through 10 were debrided with sharp mechanical debridemen t without incident. Nails were debrided and greater than 50% length and thickness where needed.fol low-up 3 months as needed Foot callus 913872904 L8 4 Debrided callus without incidentRe commend continuing offloading and wide shoe gearMonito r area daily to ensure no wounds present if present seek medical attention immediatel yFollow-[facility] 3 months as needed Unable to cut own toenails 230823487 Z74.1 [id number] Silverio Eaton DPM [facility] Pod[facility] [place] [address] [place] [address] 01/07/2024 12:44:54 01/07/2024 14:05:41 Dystrophia unguium 62508792 L60.3 Nails 1 through 10 were debrided with sharp mechanical debridemen t without incident. Nails were debrided and greater than 50% length and thickness where needed.fol low-up 3 months as needed Subungual hematoma of great toe of left foot 4178566609 5646356 S90.212A MildIf nail becomes loose return to office for nail avulsion Unable to cut own toenails 582846699 Z74.1 Foot callus 370711712 L8 4 Debrided callus without incidentRe commend continuing offloading and wide shoe gearMonito r area daily to ensure no wounds present if present seek medical attention immediatel [facility]Follow-[facility] 3 months as needed [id number] Silverio Eaton DPM [facility] Pod[facility] [place] [address] [place] [address] 04/07/2024 11:26:32 04/07/2024 14:38:37 Dystrophia unguium 08912374 L60.3 Nails 1 through 10 were debrided with sharp mechanical debridemen t without incident. Nails were debrided and greater than 50% length and thickness where needed.fol low-up 3 months as needed Subungual hematoma of great toe of left foot 9657788772 0815135 S90.212A MildIf nail becomes loose return to office for nail avulsion Foot callus 487126778 L8 4 Debrided callus without incidentRe commend continuing offloading and wide shoe gearMonito r area daily to ensure no wounds present if present seek medical attention immediatel yFollow-[facility] 3 months as needed Unable to cut own toenails 148043601 Z74.1 Pain in toe 740206395 M7 9.022 [id number] Silverio Eaton DPM [facility] Pod[facility] [place] [address] [place] [address] 06/12/2024 10:09:57 06/12/2024 13:18:34 Dystrophia unguium 94031425 L60.3 Nails 1 through 10 were debrided with sharp mechanical debridemen t without incident. Nails were debrided and greater than 50% length and thickness where needed.fol low-up 3 months as needed Pain in toe 040791143 M7 9.676 This note is dictated and transcribe d by [employer]. Transcript ion variances may occur. Despite proofreadi ng, typographi ricardo errors may occur. Occasional wrong-word or 'sound-a-l angela' substituti ons may have occurred due to the inherent limitation s of voice recording. Read the chart carefully and recognize, using context, where substituti ons have occurred. Pain of to e of left foot 4146450730 94225 M79.675 left great toeonychod ystrophyDi scussed optionsPat ient would like to schedule total nail avulsion of left great toenailpat ient to stop baby aspirin 7 days prior [id number] Silverio Eaton DPM [facility] Podiatry [place] [address] [place] [address] 08/12/2024 10:32:25 08/13/2024 12:24:12 Dystrophia unguium 25520077 L60.3 left great toenailtot al nail avulsion performedw ound care instructio ns reviewedmo nitor for signs of infection if present seek medical attention immediatel yFollow-up 1 weekNails 1 through 9 were debrided with sharp mechanical debridemen t without incident. Nails were debrided and greater than 50% length and thickness where needed.fol low-up 3 months as needed [id number] Silverio Eaton DPM [facility] Pod[facility] [place] [address] [place] [address] 08/18/2024 10:52:35 08/21/2024 16:25:04 Dystrophia unguium 98873333 L60.3 left great toenailtot al nail avulsion healeddc wound caremonito r for signs of infection if present seek medical attention immediatel yFollow-up 3 mo [id number] Silverio Eaton DPM [facility] [place] [address] [place] [address] 11/03/2024 10:09:39 11/14/2024 08:24:16 Dystrophia unguium 73835710 L60.3 nails debrided without incidentle ft great toenail regrowing approximat talia 30% and normal in naturefoll ow-up 3 months as needed Unable to cut own toenails 471860974 Z74.1 Diabetic p eripheral neuropathy 908808072 E11.40 check feet daily for wounds infectionC ontinue supportive shoe gearFollow -up in 3 months Health Concerns Section Related Observation LastModified by Organization Detai ls LastModified Time None Recorded Concern Status LastModified by Organization Details LastModified Time None Recorded Advance Directives Directive None Recorded Payers Encounter Date Sequence Insurance Name Policy Number Policy Morgan Covered Member ID Morgan Member ID Guarantor Name 04/07/2024 1 [place] Denise L Coker [id number] Denise L Coker 04/07/2024 2 [employer] OPTIONS (MEDICARE SUPPLEMENT) Denise L Coker [id number] Denise L Coker 06/12/2024 1 [place] Denise L Coker [id number] Denise L Coker 06/12/2024 2 [employer] OPTIONS (MEDICARE SUPPLEMENT) Denise L Coker [id number] Denise L Coker 08/12/2024 1 [place] Denise L Coker [id number] Denise L Coker 08/12/2024 2 [employer] HE[employer] OPTIONS (MEDICARE SUPPLEMENT) Denise L Coker [id number] Denise L Coker 08/18/2024 1 [place] Denise L Coker [id number] Denise L Coker 08/18/2024 2 [facility] HEALTHCARE OPTIONS (MEDICARE SUPPLEMENT) Denise Hernandez Coker [id number] Denise L Coker 11/03/2024 1 [place] Denise Hernandez Coker [id number] Denise L Coker 11/03/2024 2 [employer] OPTIONS (MEDICARE SUPPLEMENT) Denise Hernandez Coker [id number] Denise Hernandez Coker Notes Date Note Type Note Provider Name and Address Organization Details Recorded Time 04/07/2024 text/html . Patient is a 78-year-old female who returns the office for follow-up on painful toenails. Patient states her nails have become long and she is unable to cut them. Patient denies any open wounds or infection of the foot. Patient denies any other complaints. Silverio Eaton DPM [address], [address], [place], [address], [employer] 04/07/2024 14:10:51 06/12/2024 text/html . Patient is a 78-year-old female diabetic who returns the office for follow-up on routine foot care. Patient states overall she is doing well denies any new complaints she denies any open wounds or pain with walking. Patient denies any intermittent claudication walking or rest pain. Patient states her nails are long would like to have them cut. Patient denies any other complaints. Silverio Eaton DPM [address], [address], [place], [address], [employer] 06/12/2024 10:47:04 08/12/2024 text/html . Patient is 79-year-old female who returns the office for left great toe nail avulsion. Patient overall is doing well she denies any signs of infection to the foot. Patient understands all risks and benefits of the planned procedure and elects to continue. Silverio Eaton DPM [address], [address], [place], [address], [employer] 08/12/2024 11:50:25 08/18/2024 text/html Patient is an 79-year-old female who returns the office for follow-up on toenail avulsion. Patient has healed the toenail bed she has some mild eschar. Patient has no acute signs of infection she denies any fever, chills, nausea vomiting. Patient denies any other complaints. Silverio Eaton DPM [address], [facility] [address], [place], [address], [employer] 08/18/2024 12:28:42 11/03/2024 text/html . Patient is a 79-year-old female diabetic shoe returns for follow-up she states overall she is doing well she denies any open wounds or injury to the foot. Patient states she continues have dry skin but denies any open wounds or cracking. Patient states she does lotion daily. Patient denies any cramping with walking. Patient states that she continues have numbness and tingling of the feet. Patient denies any other complaints. Silverio Eaton DPM [address], [facility] [address], [place], [address], [employer] 11/03/2024 11:10:41 OBGyn Episode No OBEpisode recorded.
--- OUTSIDE RECORDS SUMMARY | 2025-01-27 15:34 | XMS_ITS | Clinical Summary ---
Author Organization [facility] Address [facility] [place] [address] Care Team Providers Care Welding Instructor Name Role Phone Jose Bauer MD Primary Care Provider [phone] Allergies Active Allergy Reactions Criticality Noted Date [...] Comments Blood Pressure 126/81 12/17/2023 7:17 AM SENIOR PRODUCT MARKETING MANAGER Pulse 67 12/17/2023 7:05 AM SENIOR PRODUCT MARKETING MANAGER Temperature 36.8 C (98.3 F) 12/17/2023 7:05 AM SENIOR PRODUCT MARKETING MANAGER Respiratory Rate 24 12/17/2023 7:05 AM SENIOR PRODUCT MARKETING MANAGER Oxygen Saturation 100% 12/17/2023 7:05 AM SENIOR PRODUCT MARKETING MANAGER Inhaled Oxygen Concentration - - Weight 100.2 kg (221 lb) 12/17/2023 7:05 AM SENIOR PRODUCT MARKETING MANAGER Height 165.1 cm (5' 5 ) 12/17/2023 7:05 AM SENIOR PRODUCT MARKETING MANAGER Body Mass Index 36.78 12/17/2023 7:05 AM SENIOR PRODUCT MARKETING MANAGER Plan of Treatment Health Maintenance Due Date [...] 2019 Influenza Adult (#1) 2024 PHQ-2 (Physician [place]) 11/19/2024 12/17/2023 PHQ-2 (Physician [place]) 12/17/2024 12/17/2023 Meningococcal B Vaccine Aged Out No l onger eligible based on patient's age to complete this topic Meningococcal Vaccine Aged Out No jose daniel makayla eligible based on patient's age to complete this topic RSV Immunizations Under 20 Months Aged Out No longer eligible based on patient's age to complete this topic Insurance MEDICARE [facility] Care Teams Welding Instructor Relationship Specialty Start Date End Date Jose Bauer MD [address] [place], [place] [id number] PCP - General FAMILY PRACTICE 10/07/19
[2025-01-27] MEDS: SULFAMETHOXAZOLE/TRIMETHOPRIM 800/160 MG DS TABLET 1 TAB PO (16:13)
== END 2025-01-27 16:17 | disposition home or self-care (01) ==
PROVIDERS: Physician Assistant; Emergency Provider Student in an Organized Health Care Education/Training Program; PCP Family Medicine
DX: L03.116 Cellulitis of left lower limb (principal); W57.XXXA Bitten or stung by nonvenomous insect and other nonvenomous arthropods, initial encounter; I10 Essential (primary) hypertension; M19.90 Unspecified osteoarthritis, unspecified site; G47.30 Sleep apnea, unspecified
CPT/HCPCS: 36415; 80048; 85025; 85652; 86140; 99283; A9270

== ENCOUNTER 2025-02-02 11:49 | Emergency (ER) | payer MEDICARE, SELFPAY ==
--- NOTE | ~2025-02-02 | XR_ITS ---
XR femur LT min 2V Ordering provider: Maggie Lam APRN History: . L thigh pain, CELLULITIS . Comparison: None. FINDINGS: BONES: No acute fracture or dislocation. JOINT SPACES: Normal. SOFT TISSUES: Normal. IMPRESSION: No acute osseous abnormality left femur. Reviewed, dictated and finalized at location A.
[2025-02-02 12:05] VITALS: BP 148/73; PULSE 82; RESP 18; TEMP 36.5; O2SAT 97
--- NOTE | 2025-02-02 12:12 | ED_ITS ---
HPI - Wound/Laceration General Chief Complaint: Wound/Laceration <Maggie Lam APRN - Last Filed: 02/02/25 12:17> Stated Complaint: cellulitis to thigh <Maggie Lam APRN - Last Filed: 02/02/25 12:17> Time Seen by Provider: 02/02/25 12:10 <Maggie Lam APRN - Last Filed: 02/02/25 12:17> Focused HPI: Patient is an 79-year-old female who presents to the ER with left thigh pain and infection. She reports she was evaluated approximately 1 week ago and placed on clindamycin and Bactrim for treatment. Patient reports her pain was initially a 12/10, but it has subsided over the past week to a 5/10. She reports this morning she thought she had a fever so her PCP told her to come to the ER for evaluation. Pt endorses a history of asthma, high blood pressure, and hyperlipidemia. GENERAL: Well-appearing, well-nourished, and in no acute distress. HEAD: Normocephalic, atraumatic. CHEST: Clear to auscultation. ?No respiratory distress. HEART: Regular rate and rhythm.? NEURO: ?Alert and oriented x3. Patient screened in triage and initial orders placed.? ?Additional care and disposition to be based upon?diagnostic testing and treatment. <Maggie Lam APRN - Last Filed: 02/02/25 12:17> History of Present Illness HPI narrative: I agree with the above HPI <Chris Alonso MD - Last Filed: 02/02/25 22:19> Related Data Home Medications: Home Medications ?Medication ?Instructions ?Recorded ?Confirmed ?Last Taken ?Type cetirizine 10 mg tablet (Zyrtec) 5 mg PO DAILY PRN Allergy Symptoms 10/06/19 01/30/25 04/17/21 History cinnamon bark 500 mg capsule 500 mg PO DAILY 10/06/19 01/30/25 04/17/21 History (Cinnamon) lutein 20 mg capsule 20 mg PO DAILY 10/06/19 01/30/25 04/17/21 History cholecalciferol (vitamin D3) 125 125 mcg PO DAILY 04/18/21 01/30/25 04/17/21 History mcg (5,000 unit) tablet (Vitamin D3) omeprazole 20 mg tablet,delayed 20 mg PO DAILY 04/18/21 01/30/25 04/17/21 History release immun glob G 10 gram/50 mL(20 110 ml subcut .Biweekly 02/23/22 01/30/25 Unknown History %)-pro-IgA 0-50 mcg/mL subcutaneous soln (Hizentra) amlodipine 2.5 mg tablet 2.5 mg PO DAILY 01/22/23 01/30/25 Unknown History ketoconazole 2 % topical cream applic topical 09/16/24 01/30/25 Unknown History <Maggie Lam APRN - Last Filed: 02/02/25 12:17> Allergies/Adverse Reactions: Allergies Allergy/AdvReac Type Severity Reaction Status Date / Time grapefruit Allergy Unknown KIDNEY Verified 01/30/25 10:04 FAILURE Penicillins AdvReac Unknown Nausea Verified 01/30/25 10:04 SOFT DRINKS AdvReac Intermediate KIDNEY Uncoded 01/30/25 10:04 FAILURE <Maggie Lam APRN - Last Filed: 02/02/25 12:17> Review of Systems 2 Review of Systems: All systems reviewed & are unremarkable except as noted in HPI and below <Chris Alonso MD - Last Filed: 02/02/25 22:19> [facility] Past Medical History Medical History: Medical History Borderline diabetes mellitus 02/06 HgbA1c 6.0% Adult BMI 38.0-38.9 kg/sq m Mixed stress and urge urinary incontinence Cough Ankle arthritis Flu-like symptoms Diastolic dysfunction JOHN (obstructive sleep apnea) Intolerant of CPAP COVID-19 vaccine administered 01/2021 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 Essential (primary) hypertension <Maggie Lam APRN - Last Filed: 02/02/25 12:17> Surgical History Surgical History: Surgical History H/O tooth extraction History of lumpectomy of left breast History of ankle surgery Left Hx of elbow surgery Right History of partial hysterectomy <Maggie Lam, HYDRAULIC PUNCH PRESS OPERATOR - Last Filed: 02/02/25 12:17> Family History Family History: Family History Father Family history of heart disease in male family member before age 55 Hypertension Cerebrovascular accident Family history of cardiovascular disease Grandparent Cerebrovascular accident Sibling Family history of respiratory disorder, Onset Age: 2 Diabetes mellitus, Onset Age: 80 Family history of malignant neoplasm, Onset Age: 80 Family history of diabetes mellitus in first degree relative Cerebrovascular accident Mother , Toxemia at Toxemia after giving . Sibling Diabetes mellitus Dementia Sibling Heart disease Pacemaker Dementia Other Family history of malignant neoplasm of brain <Maggie Lam, HYDRAULIC PUNCH PRESS OPERATOR - Last Filed: 02/02/25 12:17> Social History Social History: Social History Smoking status: Never smoker Second hand tobacco smoke exposure: Yes Alcohol intake: never Substance use: never Substance use type: does not use Do You Feel Safe in your Home?: Yes Lack of Transportation: No Lack of Food: Never True Current Housing: I Have Housing Concerned About Future Housing: No Difficulty Paying Gas/Electric Bills: No Difficulty Paying for Meds: No Currently Unemployed: No Education: High School Diploma/GED Difficulty w/ Childcare or Family Care: No Living arrangements: alone Occupation/Education: retired Additional occupation/education comments: From [employer] Gender identity (if verbalized by the patient): Female Sexual Orientation (if Verbalized by the Patient): Straight or Heterosexual Spiritual care concerns: No Agree to blood products: Yes <Maggie Lam, HYDRAULIC PUNCH PRESS OPERATOR - Last Filed: 02/02/25 12:17> Exam 2 Narrative: APPEARANCE: Well appearing, no pain, no distress, well-nourished. HEAD: normocephalic, atraumatic. EYES: PERRLA/EOMI, conjunctivae clear. NOSE: Normal no drainage EARS:TMS clear with good light reflex. THROAT: Pharynx clear, no exudate. NECK: Supple. No adenopathy, no masses. RESPIRATORY: Airway patent, respirations nonlabored. Clear to auscultation bilaterally, no rales, rhonchi, wheezing. CARDIOVASCULAR: Regular rate and rhythm without murmurs rubs or gallops. ABDOMINAL: Soft, nontender, nondistended, normal bowel sounds MUSCULOSKELETAL: Moves all extremities. Strength/ROM intact, No edema, No calf tenderness. NEURO: Alert. Cranial nerves II through XII intact. Good gait. Good coordination SKIN: Spontaneously draining and healing abscess to left posterior thigh <Chris Alonso MD - Last Filed: 02/02/25 22:19> Course Vital Signs Vital signs: Vital Signs Temperature 97.7 F 02/02/25 12:05 Pulse Rate 82 02/02/25 12:05 Respiratory Rate 18 02/02/25 12:05 Blood Pressure 148/73 H 02/02/25 12:05 Pulse Oximetry 97 02/02/25 12:05 Temperature 97.5 F L 02/02/25 17:33 Pulse Rate 72 02/02/25 17:33 Respiratory Rate 18 02/02/25 17:33 Blood Pressure 118/76 02/02/25 17:33 Pulse Oximetry 93 02/02/25 17:33 <Maggie Lam APRN - Last Filed: 02/02/25 12:17> Vital Signs Temperature 97.7 F 02/02/25 12:05 Pulse Rate 82 02/02/25 12:05 Respiratory Rate 18 02/02/25 12:05 Blood Pressure 148/73 H 02/02/25 12:05 Pulse Oximetry 97 02/02/25 12:05 Temperature 97.5 F L 02/02/25 17:33 Pulse Rate 72 02/02/25 17:33 Respiratory Rate 18 02/02/25 17:33 Blood Pressure 118/76 02/02/25 17:33 Pulse Oximetry 93 02/02/25 17:33 <Chris Alonso MD - Last Filed: 02/02/25 22:19> MDM - Wound/Laceration MDM Narrative Medical decision making narrative: 79-year-old female presents to the emergency department for evaluation for a resolving abscess on her left posterior thigh. Patient is currently on Bactrim and clindamycin. Patient is taking probiotics and patient is eating active culture yogurt. Patient was concerned that the abscess is not improving but abscess does look significantly improved compared to previous photos. <Chris Alonso MD - Last Filed: 02/02/25 22:19> Differential Diagnosis Differential diagnosis: Likely laceration, abscess and other <Chris Alonso MD - Last Filed: 02/02/25 22:19> Lab Data Attestation: I reviewed the patient's lab results. <Chris Alonso MD - Last Filed: 02/02/25 22:19> Result diagrams: 02/02/25 12:43 02/02/25 12:43 <Maggie Lam APRN - Last Filed: 02/02/25 12:17> Labs: Lab Results 02/02/25 Range/Units 12:43 WBC 6.6 (4.5-10.0) K/mm3 RBC 4.82 (4.2-5.4) M/mm3 Hgb 14.7 (12.0-15.0) g/dL Hct 43.5 (37.0-47.0) % MCV 90.2 (80-100) fl MCH 30.5 (26-34) pg MCHC 33.8 (32-36) g/dl RDW 13.7 (11.5-14.5) % Plt Count 218 (150-375) k/mm3 MPV 9.6 (7.4-10.4) fl Immature Gran % (Auto) 0.6 H (0-0.5) % Neut % (Auto) 66.6 (45.5-73.1) % Lymph % (Auto) 23.4 (18.3-44.2) % [place] % (Auto) 7.3 (2.6-8.5) % Eos % (Auto) 1.5 (0-4.4) % Baso % (Auto) 0.6 (0.2-1.2) % Lymph # (Auto) 1.55 (0.9-3.2) K/mm3 [place] # (Auto) 0.5 (0.1-0.6) K/mm3 Eos # (Auto) 0.1 (0-0.3) K/mm3 Baso # (Auto) 0.0 (0.0-0.1) K/mm3 Abs Immat Gran (auto) 0.04 H (0.00-0.031) K/mm3 Absolute Neuts (auto) 4.4 (1.3-6.7) K/mm3 Absolute Nucleated RBC 0.000 (0.0-0.012) K/mm3 Nucleated RBC % 0.0 (0.0-0.2) % PT 13.4 (11.1-14.7) Seconds INR 1.0 APTT 26.1 (22.3-36.8) Seconds Sodium 139 (137-145) mmol/L Potassium 4.0 (3.4-5.0) mmol/L Chloride 108 H (98-107) mmol/L Carbon Dioxide 17 L (22-30) mmol/L Anion Gap 14 H (4-12) mmol/L BUN 23 H (7-17) mg/dL Creatinine 0.54 L (0.7-1.0) mg/dL Estim Creat Clear Calc 78 ml/min Estimated GFR > 60 (59 - ) Glucose 133 H (65-110) mg/dL Lactic Acid 1.1 (0.7-2.0) mmol/L Calcium 9.8 (8.4-10.2) mg/dL Total Bilirubin 0.4 (0.2-1.3) mg/dL AST 37 H (14-36) U/L ALT 27 (6-35) U/L Alkaline Phosphatase 102 (38-126) U/L Troponin I < 0.012 (0.000-0.034) ng/mL C-Reactive Protein < 0.5 (<1.0) mg/dL Total Protein 8.0 (6.3-8.2) g/dL Albumin 4.7 (3.5-5.1) g/dL <Maggie Lam, HYDRAULIC PUNCH PRESS OPERATOR - Last Filed: 02/02/25 12:17> Lab Results 02/02/25 Range/Units 12:43 WBC 6.6 (4.5-10.0) K/mm3 RBC 4.82 (4.2-5.4) M/mm3 Hgb 14.7 (12.0-15.0) g/dL Hct 43.5 (37.0-47.0) % MCV 90.2 (80-100) fl MCH 30.5 (26-34) pg MCHC 33.8 (32-36) g/dl RDW 13.7 (11.5-14.5) % Plt Count 218 (150-375) k/mm3 MPV 9.6 (7.4-10.4) fl Immature Gran % (Auto) 0.6 H (0-0.5) % Neut % (Auto) 66.6 (45.5-73.1) % Lymph % (Auto) 23.4 (18.3-44.2) % [place] % (Auto) 7.3 (2.6-8.5) % Eos % (Auto) 1.5 (0-4.4) % Baso % (Auto) 0.6 (0.2-1.2) % Lymph # (Auto) 1.55 (0.9-3.2) K/mm3 [place] # (Auto) 0.5 (0.1-0.6) K/mm3 Eos # (Auto) 0.1 (0-0.3) K/mm3 Baso # (Auto) 0.0 (0.0-0.1) K/mm3 Abs Immat Gran (auto) 0.04 H (0.00-0.031) K/mm3 Absolute Neuts (auto) 4.4 (1.3-6.7) K/mm3 Absolute Nucleated RBC 0.000 (0.0-0.012) K/mm3 Nucleated RBC % 0.0 (0.0-0.2) % PT 13.4 (11.1-14.7) Seconds INR 1.0 APTT 26.1 (22.3-36.8) Seconds Sodium 139 (137-145) mmol/L Potassium 4.0 (3.4-5.0) mmol/L Chloride 108 H (98-107) mmol/L Carbon Dioxide 17 L (22-30) mmol/L Anion Gap 14 H (4-12) mmol/L BUN 23 H (7-17) mg/dL Creatinine 0.54 L (0.7-1.0) mg/dL Estim Creat Clear Calc 78 ml/min Estimated GFR > 60 (59 - ) Glucose 133 H (65-110) mg/dL Lactic Acid 1.1 (0.7-2.0) mmol/L Calcium 9.8 (8.4-10.2) mg/dL Total Bilirubin 0.4 (0.2-1.3) mg/dL AST 37 H (14-36) U/L ALT 27 (6-35) U/L Alkaline Phosphatase 102 (38-126) U/L Troponin I < 0.012 (0.000-0.034) ng/mL C-Reactive Protein < 0.5 (<1.0) mg/dL Total Protein 8.0 (6.3-8.2) g/dL Albumin 4.7 (3.5-5.1) g/dL <Chris Alonso MD - Last Filed: 02/02/25 22:19> Discharge Plan Discharge Clinical Impression: Abscess <Maggie Lam APRN - Last Filed: 02/02/25 12:17> Patient Disposition: Home, Self-Care <Maggie Lam APRN - Last Filed: 02/02/25 12:17> Condition: Stable <Maggie Lam APRN - Last Filed: 02/02/25 12:17> Instructions: Antibiotic Form, Abscess (ED) <Maggie Lam APRN - Last Filed: 02/02/25 12:17> Additional Instructions: Wound care as directed. Continue your antibiotics as directed. Continue to have close follow-up with your primary care physician. <Maggie Lam APRN - Last Filed: 02/02/25 12:17> Patient Language: Turkish <Maggie Lam APRN - Last Filed: 02/02/25 12:17> Prescriptions: No Action Hizentra 10 gram/50 mL (20 %) solution 110 ml SUB-Q .Biweekly nitroglycerin 0.4 mg tablet, sublingual 0.4 mg sublingual Q5M PRN (Reason: chest pain) Qty: 25 0RF Rx Instructions: do not exceed 3 doses per episode amlodipine 2.5 mg tablet 2.5 mg PO DAILY cinnamon bark [Cinnamon] 500 mg capsule 500 mg PO DAILY lutein 20 mg capsule 20 mg PO DAILY cetirizine [Zyrtec] 10 mg tablet 5 mg PO DAILY PRN (Reason: Allergy Symptoms) albuterol sulfate 90 mcg/actuation HFA aerosol inhaler 2 inh inhalation Q6H PRN (Reason: shortness of breath or wheezing) Qty: 8.5 2RF ketoconazole 2 % cream topical omeprazole 20 mg Tablet,Delayed Release (Dr/Ec) 20 mg PO DAILY cholecalciferol (vitamin D3) [Vitamin D3] 125 mcg (5,000 unit) Tablet 125 mcg PO DAILY aspirin [Children's Aspirin] 81 mg Tablet,Chewable 81 mg PO DAILY Qty: 30 0RF sulfamethoxazole-trimethoprim [Bactrim DS] 800-160 mg tablet 1 tablet PO Q12H Qty: 14 0RF (DME) lancets 31 gauge misc See Rx Instructions .Route Qty: 100 1RF Rx Instructions: Use daily metoprolol succinate 50 mg tablet extended release 24 hr 100 mg PO DAILY Qty: 180 0RF Farxiga 10 mg tablet 10 mg PO QAM Qty: 90 3RF rosuvastatin 20 mg tablet See Rx Instructions .ROUTE .COMPLEX Qty: 90 1RF Dose Instruction: TAKE 1 TABLET BY MOUTH DAILY Rx Instructions: TAKE 1 TABLET BY MOUTH DAILY lisinopril 10 mg tablet See Rx Instructions .ROUTE .COMPLEX Qty: 90 1RF Dose Instruction: TAKE 1 TABLET BY MOUTH DAILY Rx Instructions: TAKE 1 TABLET BY MOUTH DAILY mirabegron [Myrbetriq] 50 mg tablet extended release 24 hr See Rx Instructions .ROUTE .COMPLEX Qty: 90 0RF Dose Instruction: TAKE 1 TABLET BY MOUTH DAILY Rx Instructions: TAKE 1 TABLET BY MOUTH DAILY (DME) Contour Next Test Strips Strip See Rx Instructions .ROUTE .MEDSUPPLY Qty: 100 3RF Rx Instructions: As directed daily (DME) blood-glucose meter [Contour Meter] Kit See Rx Instructions .ROUTE .MEDSUPPLY Qty: 1 0RF Rx Instructions: As directed (DME) Easy Touch Lancets 32 gauge misc See Rx Instructions .Route Qty: 50 0RF Rx Instructions: check glucose once daily clindamycin HCl 150 mg capsule 450 mg PO Q8H 7 Days Qty: 63 0RF mupirocin [Centany] 2 % ointment 1 applic topical BID Qty: 50 0RF <Maggie Lam APRN - Last Filed: 02/02/25 12:17> Follow-up/Referrals: Jose Bauer MD [Primary Care Provider] - <Maggie Lam APRN - Last Filed: 02/02/25 12:17>
--- NOTE | 2025-02-02 12:18 | ECG_ITS ---
Test Date: 2025-02-02 12:35:27 Measurements Intervals [place] Rate: 72 P: 35 NM: 196 QRS: -19 QRSD: 100 T: 16 QT: 401 QTc: 440 Interpretive Statements SINUS RHYTHM MINIMAL VOLTAGE CRITERIA FOR LVH, CONSIDER NORMAL VARIANT [MEETS CRITERIA IN ONE OF: R(aVL), S(V1), R(V5), R(V5/V6)+S(V1)] No previous ECG available for comparison Electronically Signed On 02-03-2025 16:36:10 CDT by Orion Cook M.D.
[2025-02-02 13:01] LABS: Basophils Percent Auto 0.6 % (0.2-1.2); Eosinophils Absolute Auto 0.1 K/mm3 (0-0.3); Eosinophils Percent Auto 1.5 % (0-4.4); Hematocrit 43.5 % (37.0-47.0); Hemoglobin 14.7 g/dL (12.0-15.0); Immature Granulocyte Absolute 0.04 K/mm3 (0.00-0.031); Immature Granulocyte Percent A 0.6 % (0-0.5); Lymphocytes Absolute Auto 1.55 K/mm3 (0.9-3.2); Lymphocytes Percent Auto 23.4 % (18.3-44.2); Mean Corpuscular HGB Conc 33.8 g/dl (32-36); Mean Corpuscular Hemoglobin 30.5 pg (26-34); Mean Corpuscular Volume 90.2 fl (80-100); Mean Platelet Volume 9.6 fl (7.4-10.4); Monocytes Absolute Auto 0.5 K/mm3 (0.1-0.6); Monocytes Percent Auto 7.3 % (2.6-8.5); Neutrophils Absolute Auto 4.4 K/mm3 (1.3-6.7); Neutrophils Percent Auto 66.6 % (45.5-73.1); Platelet Count Result 218 k/mm3 (150-375); Red Blood Count 4.82 M/mm3 (4.2-5.4); Red Cell Distribution Width 13.7 % (11.5-14.5); White Blood Count 6.6 K/mm3 (4.5-10.0)
[2025-02-02 13:12] LABS: Lactic Acid Reflex 1.1 mmol/L (0.7-2.0)
[2025-02-02 13:13] LABS: Alanine Aminotransferase 27 U/L (6-35); Albumin Level 4.7 g/dL (3.5-5.1); Alkaline Phosphatase 102 U/L (38-126); Anion Gap 14 mmol/L (4-12); Aspartate Amino Transferase 37 U/L (14-36); Bilirubin,Total 0.4 mg/dL (0.2-1.3); Blood Urea Nitrogen 23 mg/dL (7-17); CRP < 0.5 mg/dL (<1.0); Calcium 9.8 mg/dL (8.4-10.2); Carbon Dioxide 17 mmol/L (22-30); Chloride 108 mmol/L (98-107); Estimated CRCL calculation 78 ml/min; Estimated Glomerular Filt Rate > 60; Glucose 133 mg/dL (65-110); Sodium 139 mmol/L (137-145)
[2025-02-02 13:19] LABS: Prothrombin Time 13.4 Seconds (11.1-14.7)
[2025-02-02 13:20] LABS: Partial Thromboplastin Time 26.1 Seconds (22.3-36.8)
[2025-02-02 13:22] LABS: Troponin I < 0.012 ng/mL (0.000-0.034)
--- OUTSIDE RECORDS SUMMARY | 2025-02-02 14:20 | XMS_ITS ---
Author Organization [facility] Address [address] [place] [address] Care Team Providers Care Auctioneer Automobile Name Role Phone Lizette PAUL, Jose Primary Care Provider Vanna Ferrer Unavailable [phone] Sandra Rinaldi Unavailable Unavailable Allergies No Known [...] review and pick correct strength-formulat ion from [employer] options. If intended option is not shown, [...] review and pick correct strength-formulat ion from [employer] options. If intended option is not shown, [...] 09/30/2024 Encounters Encounter Location Date Provider Diagnosis [facility] [address] [address] 09/30/2024 Vanna Perez Chronic rhinitis J31 .0 [...] history of CVID, records sent by her crop duster helper, Dr. Rinaldi, also report CVID diagnosis. However, [...] history of CVID, records sent by her crop duster helper, Dr. Rinaldi, also report CVID diagnosis. However, [...] Provider Name:Vanna gong, 03/03/2025 09:30:00 AM[facility] [address], [address], Procedure Notes * Category Sub-Category Detail Notes Time (Provider Encounter) Time Attestation This follow-up encounter took more than:: more than 30 minutes ([id number]) Tasks performed during this encounter include:: taking a history, reviewing the patient's review of systems, performing the physical examnation, reviewing laboratory results, reviewing outside medical records, documenting in the EHR Progress Notes * Bola PETERSOB:1945 (7 0 yo F)Acc No.[id number]:09/30/2024 Progress Notes Patient: Denise RODRIGUEZ Provider: Carroll Perez DNP HAND SPRING REPAIRER-C :1945 A ge:79 Y S ex:Female Date:09/30/2024 Address:[address] [place], [place] [id number] Pcp:Jose Bauer MD Subjective: * Chief Complaints: * H istory of hypogammaglobulinemia, previously managed by Dr. Rinaldi. Receives Hizentra every 2 weeks since approximately 2017. Reports illness this Winter that required steroids and antibiotics. Tolerating infusions without issue. * HPI: * Introduction: I had the pleasure of seeing Clyde Peters, an [id number] female with past medical history significant for hypertension, DiabetesMellitus and hypogammaglobulinemia who returns today for further evaluation and management. She is alone amery hospital and clinicy's visit. Denise reports history of hypogammaglobulinemia, previously [...] *Please review and pick correct strength-formulation from [employer] options. If intended option is not shown, [...] *Please review and pick correct strength-formulation from [employer] options. If intended option is not shown, [...] *Please review and pick correct strength-formulation from [employer] options. If intended option is not shown, [...] *Please review and pick correct strength-formulation from [employer] options. If intended option is not shown, [...] more than: m ore than 30 minutes ([id number]) T asks performed during this encounter include: [...] Management) * Billing Information: * Visit Code: 35719 Office Visit, Est Pt., Level 4. Modifiers: 25 * Procedure Codes: G8427 DOC MEDS VERIFIED W/PT OR RE. * ON INSPECTOR Electronically co-signed by Chinedu Flores MD[facility] on 11/11/2024 at 01:05 PM COTTON INSPECTOR Sign off status: Completed true * Provider: Carroll Perez DNP HAND SPRING REPAIRER-C Date: 1 11/30/2023 Generated for Thuy ng/Faedouardg/eTransmitting on: 0 02/02/2025 02:20 PM CDT History and Physical Notes * [...]
--- OUTSIDE RECORDS SUMMARY | 2025-02-02 14:20 | XMS_ITS | Clinical Summary ---
Author Organization [facility] Address [facility] [place] [address] Care Team Providers Care Curer Foam [employer]ber Name Role Phone Jose Bauer MD Primary Care Provider [phone] Allergies Active Allergy Reactions Criticality Noted Date [...] Comments Blood Pressure 126/81 12/17/2023 7:17 AM PUBLICATIONS WRITER Pulse 67 12/17/2023 7:05 AM PUBLICATIONS WRITER Temperature 36.8 C (98.3 F) 12/17/2023 7:05 AM PUBLICATIONS WRITER Respiratory Rate 24 12/17/2023 7:05 AM PUBLICATIONS WRITER Oxygen Saturation 100% 12/17/2023 7:05 AM PUBLICATIONS WRITER Inhaled Oxygen Concentration - - Weight 100.2 kg (221 lb) 12/17/2023 7:05 AM PUBLICATIONS WRITER Height 165.1 cm (5' 5 ) 12/17/2023 7:05 AM PUBLICATIONS WRITER Body Mass Index 36.78 12/17/2023 7:05 AM PUBLICATIONS WRITER Plan of Treatment Health Maintenance Due Date [...] 2019 Influenza Adult (#1) 2024 PHQ-2 (Physician [place]) 11/19/2024 12/17/2023 PHQ-2 (Physician [place]) 12/17/2024 12/17/2023 Meningococcal B Vaccine Aged Out No l onger eligible based on patient's age to complete this topic Meningococcal Vaccine Aged Out No jose daniel makayla eligible based on patient's age to complete this topic RSV Immunizations Under 20 Months Aged Out No longer eligible based on patient's age to complete this topic Insurance MEDICARE [facility] Care Teams Curer Foam Rubber Relationship Specialty Start Date End Date Jose Bauer MD [address] [place], [place] [id number] PCP - General FAMILY PRACTICE 10/07/19
--- OUTSIDE RECORDS SUMMARY | 2025-02-02 14:20 | XMS_ITS ---
Author Organization [facility] Address [address] [place] [address] Care Team Providers Care Welcome Center Attendant Name Role Phone Lizette PAUL, Jose Primary Care Provider Vanna Ferrer Unavailable [phone] Sandra Rinaldi Unavailable Unavailable Allergies No Known [...] review and pick correct strength-formulat ion from [employer] options. If intended option is not shown, [...] review and pick correct strength-formulat ion from [employer] options. If intended option is not shown, [...] 05/26/2024 Encounters Encounter Location Date Provider Diagnosis [facility] [address] [address] 05/26/2024 Vanna Perez Chronic rhinitis J31 .0 [...] history of CVID, records sent by her didactic program in dietetics director, Dr. Rnialdi, also report CVID diagnosis. However, after thorough [...] history of CVID, records sent by her didactic program in dietetics director, Dr. Rinaldi, also report CVID diagnosis. 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 Rinaldi. Receives Hizentra every 2 weeks since approximately 2018. Reports illness this Winter that required steroids and antibiotics. Due for next infusion in 9 days. * HPI: * Introduction: I had the pleasure of seeing Clyde Peters, a [id number] female with past medical history significant for hypertension, DiabetesMellitus and hypogammaglobulinemia who returns today for further evaluation and management. [facility]. Denise reports history of hypogammaglobulinemia, previously [...] *Please review and pick correct strength-formulation from [employer] options. If intended option is not shown, [...] *Please review and pick correct strength-formulation from [employer] options. If intended option is not shown, [...] *Please review and pick correct strength-formulation from [employer] options. If intended option is not shown, [...] *Please review and pick correct strength-formulation from [employer] options. If intended option is not shown, [...] Management) * Billing Information: * Visit Code: 71834 Office Visit, Est Pt., Level 4. Modifiers: 25 * Procedure Codes: G8427 DOC MEDS VERIFIED W/PT OR RE. * Electronically co-signed by Chinedu Flores MD, FAAAAI on 06/07/2024 at 08:56 PM CDT Sign off status: Completed true * Provider: DAR Hilton-C Date: 0 05/26/2024 Generated for Thuy gracia/Fuad/eTransmitting on: 0 02/02/2025 02:20 PM CDT History [...]
--- OUTSIDE RECORDS SUMMARY | 2025-02-02 14:20 | XMS_ITS | Data Portability ---
Author Organization [place] [employer] [facility], Main Office Address [address] [place] [address] Care Team Providers Care Apartment Coordinator Name Role Phone VICKI DURÁN Primary Care Provider [phone] VICKI DURÁN Referring Provider Assessment Encounter Date Assessment Date Assessment LastModified by Organization Details LastModified Time 06/12/2024 06/12/2024 This note is dictated and transcribed by [employer]. Esol Teacher variances may occur. Despite proofreading, typographical errors may occur. Occasional wrong-word or 'qrygo-r-nbvj' substitutions may have occurred due to the inherent limitations of voice recording. Read the chart carefully and recognize, using context, where substitutions have occurred. Not available 06/12/2024 10:29:51 08/12/2024 08/12/2024 This note is dictated and transcribed by [employer]. Esol Teacher variances may occur. Despite proofreading, typographical errors may occur. Occasional wrong-word or 'rzace-f-lzpu' substitutions may have occurred due to the inherent limitations of voice recording. Read the chart carefully and recognize, using context, where substitutions have occurred. Not available 08/12/2024 11:49:40 08/18/2024 08/18/2024 This note is dictated and transcribed by [employer]. Esol Teacher variances may occur. Despite proofreading, typographical errors may occur. Occasional wrong-word or 'uvvvc-e-qfkt' substitutions may have occurred due to the inherent limitations of voice recording. Read the chart carefully and recognize, using context, where substitutions have occurred. Not available 08/18/2024 12:27:42 02/02/2025 02/02/2025 This note is dictated and transcribed by MModal [employer] Direct Software. Esol Teacher variances may occur. Despite proofreading, typographical errors may occur. Occasional wrong-word or 'hykri-t-ptti' substitutions may have occurred due to the inherent limitations of voice recording. Read the chart carefully and recognize, using context, where substitutions have occurred. Not available 02/02/2025 11:18:00 Plan of Treatment Reminders Order Date Submit Date Provider Last Modified By Organization Details Last Modified Time Details Appointments Establish ed Patient 15 2024 10:00A M Silverio Eaton DPM Not available Not available Not available Establish ed Patient 15 2024 02:30P M Silverio Eaton DPM Not available Not available Not available Lab None recorded. Referral None recorded. Procedures None recorded. Surgeries None recorded. Imaging None recorded. Medication Orders ketoconaz ole 2 % topical cream 2023 024 [id number], [address], [place], [id number], 08/18/2024 12:28:45 Patient TargetsNo targets recorded. Patient InstructionsNo instructions recorded. Reason for Referral None Reported. Problems Name Problem SNOMED Code Status Onset Date Resolution Date Notes Provider Name and Address Organization Details Recorded Time Paronychi a of toe of left foot 91178619644 425974 Completed 201802/03/2021 Not Available [facility] 3 02:50:48 Paronychi a of toe of right foot 78535078445 863091 Completed 201802/03/2021 Not Available [facility] 3 02:50:48 Pain in both feet 39125957627 044058 Active 2021 Not Available [facility] 3 02:50:48 Foot callus 628889927 Active 2018 Not Available [facility] 3 02:50:48 Headache 93281753 Active 2017 Not Available [facility] 3 02:50:48 Injury of toe 693410384 Completed 201902/03/2021 Not Available [facility] 3 02:50:48 Unable to cut own toenails 075483965 Active 2019 Not Available [facility] 3 02:50:48 Bronchiti s 55841308 Active 2017 Not Available [facility] 3 02:50:49 Ingrowing nail 478375878 Completed 201802/03/2021 Not Available [facility] 3 02:50:49 Obesity 428513884 Active 2017 Not Available [facility] 3 02:50:49 Diabetic periphera l neuropath y 371173022 Completed 201711/01/2021 Silverio Eaton DPM [address], [address], [place], [address] , [facility] 4 11:09:56 Dystrophi a unguium 57095651 Active 2017 Not Available [facility] 3 02:50:49 Subungual hematoma of great toe of left foot 19289332098 982674 Active 2023 Silverio Eaton DPM [address], [address], [place], [address] , [facility] 4 13:09:46 Pain in toe 042554914 Active 2023 Silverio Eaton DPM [address], [address], [place], [address] , [facility] 4 14:10:35 Pain of toe of left foot 03217151491 9108 Active 2023 Silverio Eaton DPM [address], [address], [place], [address] , [facility] 4 10:46:06 Diabetic periphera l neuropath y 145511775 Active 2023 Silverio Eaton DPM [address], [address], [place], [address] , [facility] 4 11:09:55 Diabetic on oral treatment 843242554 Active 2024 Tonie maya, [facility] 5 11:17:23 Diabetes mellitus 27776090 Active 2024 Silverio Eaton DPM [address], [address], [place], [address] , [employer] [place] [employer] [facility] [email or web address] 5 15:01:26 Notes:eye problems Problem Notes None recorded. Procedures Surgical History Date Name Laterality Status Provider Name and Address Organization Details Recorded Time 5 Nail Debridement completed Silverio Eaton DPM [address], [address], [place], [address], [employer] [facility] [email or web address] 02/02/2025 15:00:44 4 Nail Debridement completed ART Jenkins, [address], [place], [address], [employer] [place] [employer] [facility] [email or web address] 11/03/2024 11:09:08 4 Nail Debridement completed Silverio Eaton DPM [address], [address], [place], [address], [employer] [facility] [email or web address] 08/12/2024 11:49:27 4 Toenail avulsion completed Silverio Eaton DPM [address], [address], [place], [address], [employer] [place] [employer] [facility] [email or web address] 08/12/2024 11:49:10 4 Nail Debridement completed ART [address], [address], [place], [address], [employer] [facility] [email or web address] 06/12/2024 10:45:42 4 Nail Debridement completed ART [address], [address], [place], [address], [employer] [facility] [email or web address] 04/07/2024 14:09:35 4 Callus Debridement, One completed Silverio Eaton DPM [address], [address], [place], [address], [facility] [employer] [facility] [email or web address] 04/07/2024 14:09:52 4 Nail Debridement completed Silverio Eaton DPM [address], [address], [place], [address], [employer] 01/07/2024 13:09:13 4 Callus Debridement, One completed Silverio Eaton DPM [address], [address], [place], [address], [employer] 01/07/2024 13:09:19 3 Nail Debridement completed Silverio Eaton DPM [address], [address], [place], [address], [email or web address] 08/20/2023 11:34:15 3 Callus Debridement, One completed Silverio Eaton DPM [address], [address], [place], [address], [email or web address] 08/20/2023 11:34:19 3 Nail Debridement completed Silverio Eaton DPM [address], [address], [place], [address], [employer] 05/21/2023 14:19:56 3 Callus Debridement, One completed Silverio Eaton DPM [address], [address], [place], [address], [employer] 05/21/2023 14:20:06 3 Nail Debridement completed Silverio Eaton DPM [address], [address], [place], [address], [employer] 03/01/2023 15:21:29 Imaging Results None recorded. Procedure [...] Not Available Not Available No t Available clindamycin HCl 150 mg capsule TAKE 3 CAPSULES BY MOUTH EVERY 8 HOURS FOR 7 DAYS active Not Available Not Available No t Available amlodipine 2.5 mg tablet active Not Available Not Available Not Available acetaminoph en 300 mg-codeine 30 mg tablet TAKE 1 TABLET BY MOUTH EVERY 6 HOURS NEEDED FOR COUGH 06/12 completed Not Available Not Available Not Available sulfamethox azole 800 mg-trimetho prim 160 mg tablet TAKE 1 TABLET BY MOUTH EVERY 12 HOURS active Not Available Not Available No t Available ketorolac 0.5 % eye drops 09/11 [...] Not Available Not Available No t Available mupirocin 2 % topical ointment APPLY TOPICALLY TO THE AFFECTED AREA TWICE DAILY active Not Available Not Available No [...] Not Available Not Available Microlet Lancet USE TO CHECK BLOOD SUGAR ONCE DAILY active Not Available Not Available [...] completed Not Available Not Available Not Available Noxubee Ultra Saline Mist nasal Take by nasal [...] Avai lable Contour Next Test Strips USE DAILY DIRECTED active Not Available Not Available No t Available Myrbetriq 50 mg tablet,exte nded release TAKE 1 TABLET BY MOUTH DAILY active Not Available Not Available No t Available Farxiga 10 mg tablet TAKE 1 TABLET BY MOUTH EVERY MORNING active Not Available Not Available No t Available Fluzone High-Dose 7513-5498 (PF) 180 mcg/0.5 mL intramuscul ar syringe [...] completed Not Available Not Available Not Available Contour Next Gen Meter USE DIRECTED active Not Available Not Available No t Available Hizentra 10 gram/50 mL (20 %) subcutaneou s syringe active Not Available Not Available No t Available Vitals Date Recorded Body height Body mass index (BMI) Body weight Heart rate Respiratory rate Body temperature Oxygen saturation Oxygen saturation in Arterial blood by Pulse oximetry Systolic blood pressure Diastolic blood pressure Provider Name and Address Organization Details Last Updated DateTime 4 165.1 cm 36.9 kg/m2 719328. 51 g 67 /min 16 /min 98 [degF] 98 % 98 % 120 mm[Hg] 80 mm[Hg] Jaclyn Arthur [place] [employer] [facility] [employer] [facility] 4 10:17:56 Date Recorded Body height Body mass index (BMI) Body weight Heart rate Respiratory rate Oxygen saturation Oxygen saturation in Arterial blood by Pulse oximetry Systolic blood pressure Diastolic blood pressure Provider Name and Address Organization Details Last Updated DateTime 4 165.1 cm 36.9 kg/m2 298860. 51 g 68 /min 14 /min 99 % 99 % 125 mm[Hg] 70 mm[Hg] Tonie Duy [place] [employer] [employer] [facility] [employer] [facility] 4 10:45:43 Date Recorded Body height Body mass index (BMI) Body weight Heart rate Respiratory rate Oxygen saturation Oxygen saturation in Arterial blood by Pulse oximetry Systolic blood pressure Diastolic blood pressure Provider Name and Address Organization Details Last Updated DateTime 4 165.1 cm 36.9 kg/m2 907689. 51 g 78 /min 14 /min 98 % 98 % 138 mm[Hg] 78 mm[Hg] Tonie Gordillo [facility] [employer] [facility] 4 11:40:05 Date Recorded Body height Body mass index (BMI) Body weight Provider Name and Address Organization Details Last Updated DateTime 11/03/2024 165.1 cm 36.9 kg/m2 704317.51 g Tonie Gordillo [place] [employer] [facility] [employer] [facility] 11/03/2024 10:15:24 Date Recorded Body height Body mass index (BMI) Body weight Heart rate Respiratory rate Oxygen saturation Oxygen saturation in Arterial blood by Pulse oximetry Systolic blood pressure Diastolic blood pressure Provider Name and Address Organization Details Last Updated DateTime 5 165.1 cm 36.9 kg/m2 259754. 51 g 77 /min 14 /min 98 % 98 % 111 mm[Hg] 76 mm[Hg] Tonie Duy [place] [employer] [employer] [facility] [employer] [facility] 5 11:14:37 Social History None recorded. Functional Status None recorded. Mental Status None recorded. Family History Relationship Description Onset Age of this Age Resolved Age Notes LastModified by Organization Details LastModified Time Brother Diabetes mellitus souleymane Not available 05/20 10:19:18 Notes:stroke - father, cance r - son, brother Medical History Condition Response HYPERTENSION Y Gynecological HistoryNo gynecological history recorded. Obstetrics History GPAL:G 0 P 0 0 0 0 Past Encounters Encounter ID Performer Location Encounter Start Date Encounter Closed Date Diagnosis/Indication Diagnosis SNOMED-CT Code Diagnosis ICD10 Code Diagnosis Note [id number] _LARRY_M IGRATION_ DEFAULT_1 _1 , 01/31/2021 00:00:00 02/03/2021 19:00:09 [id number] _ATHENA_M IGRATION_ DEFAULT_1 _1 , 05/02/2021 00:00:00 05/02/2021 11:31:47 [id number] _ATHENA_M IGRATION_ DEFAULT_1 _1 , 08/01/2021 00:00:00 08/02/2021 16:00:00 [id number] _ATHENA_M IGRATION_ DEFAULT_1 _1 , 10/31/2021 00:00:00 11/01/2021 15:14:30 [id number] _ATHENA_M IGRATION_ DEFAULT_1 _1 , 01/30/2022 00:00:00 02/16/2022 08:44:54 [id number] _ATHENA_M IGRATION_ DEFAULT_1 _1 , 05/01/2022 00:00:00 05/01/2022 15:09:45 [id number] _ATHENA_M IGRATION_ DEFAULT_1 _1 , 08/14/2022 00:00:00 08/14/2022 14:24:24 [id number] [facility] [place] [address] [place] [address] 11/30/2022 00:00:00 11/30/2022 15:27:51 [id number] Silverio Eaton DPM [facility] [place] [address] [place] [address] 03/01/2023 13:37:59 03/14/2023 10:17:28 Dystrophia unguium 39443449 L60.3 Nails 1 through 10 were debrided with sharp mechanical debridemen t without incident. Nails were debrided and greater than 50% length and thickness where needed. Unable to cut own toenails 198589250 Z74.1 [id number] Silverio Eaton DPM [facility] [place] [address] [place] [address] 05/21/2023 10:39:00 05/23/2023 11:29:20 Foot callus 984158112 L84 Debrided callus without incidentRe commend continuing offloading and wide shoe gearMonito r area daily to ensure no wounds present if present seek medical attention immediatel yFollow-up in [facility] 3 months as needed Dystrophia unguium 19783 009 L60.3 Nails 1 through 10 were debrided with sharp mechanical debridemen t without incident. Nails were debrided and greater than 50% length and thickness where needed.fol low-up 3 months as needed Unable to cut own toenails 338234575 Z74.1 [id number] Silverio Eaton DPM [facility] [place] [address] [facility] [address] [place] [address] 08/20/2023 10:52:44 08/20/2023 11:53:03 Dystrophia unguium 03287066 L60.3 Nails 1 through 10 were debrided with sharp mechanical debridemen t without incident. Nails were debrided and greater than 50% length and thickness where needed.fol low-up 3 months as needed Foot callus 354376471 L8 4 Debrided callus without incidentRe commend continuing offloading and wide shoe gearMonito r area daily to ensure no wounds present if present seek medical attention immediatel yFollow-up in [facility] 3 months as needed Unable to cut own toenails 072760355 Z74.1 [id number] Silverio Eaton DPM [facility] [place] [address] [place] [address] 01/07/2024 12:44:54 01/07/2024 14:05:41 Dystrophia unguium 95095414 L60.3 Nails 1 through 10 were debrided with sharp mechanical debridemen t without incident. Nails were debrided and greater than 50% length and thickness where needed.fol low-up 3 months as needed Subungual hematoma of great toe of left foot 1537677376 5460543 S90.212A MildIf nail becomes loose return to office for nail avulsion Unable to cut own toenails 957064549 Z74.1 Foot callus 213463162 L8 4 Debrided callus without incidentRe commend continuing offloading and wide shoe gearMonito r area daily to ensure no wounds present if present seek medical attention immediatel yFollow-up in [facility] 3 months as needed [id number] Silverio Eaton DPM [facility] [place] [address] [place] [address] 04/07/2024 11:26:32 04/07/2024 14:38:37 Dystrophia unguium 56735458 L60.3 Nails 1 through 10 were debrided with sharp mechanical debridemen t without incident. Nails were debrided and greater than 50% length and thickness where needed.fol low-up 3 months as needed Subungual hematoma of great toe of left foot 9165021626 5418105 S90.212A MildIf nail becomes loose return to office for nail avulsion Foot callus 541242255 L8 4 Debrided callus without incidentRe commend continuing offloading and wide shoe gearMonito r area daily to ensure no wounds present if present seek medical attention immediatel yFollow-up in [facility] 3 months as needed Unable to cut own toenails 332789929 Z74.1 Pain in toe 291497943 M7 9.681 [id number] Silverio Eaton DPM [facility] [place] [address] [facility] [address] [place] [address] 06/12/2024 10:09:57 06/12/2024 13:18:34 Dystrophia unguium 93936391 L60.3 Nails 1 through 10 were debrided with sharp mechanical debridemen t without incident. Nails were debrided and greater than 50% length and thickness where needed.fol low-up 3 months as needed Pain in toe 080731028 M7 9.676 This note is dictated and transcribe d by [employer]. Transcript ion variances may occur. Despite proofreadi ng, typographi ricardo errors may occur. Occasional wrong-word or 'sound-a-l angela' substituti ons may have occurred due to the inherent limitation s of voice recording. Read the chart carefully and recognize, using context, where substituti ons have occurred. Pain of to e of left foot 8934979132 53180 M79.675 left great toeonychod ystrophyDi scussed optionsPat ient would like to schedule total nail avulsion of left great toenailpat ient to stop baby aspirin 7 days prior [id number] Silverio Eaton DPM [facility] [place] [address] [place] [address] 08/12/2024 10:32:25 08/13/2024 12:24:12 Dystrophia unguium 71424521 L60.3 left great toenailtot al nail avulsion performedw ound care instructio ns reviewedmo nitor for signs of infection if present seek medical attention immediatel yFollow-up 1 weekNails 1 through 9 were debrided with sharp mechanical debridemen t without incident. Nails were debrided and greater than 50% length and thickness where needed.fol low-up 3 months as needed [id number] Silverio Eaton DPM [facility] [place] [address] [place] [address] 08/18/2024 10:52:35 08/21/2024 16:25:04 Dystrophia unguium 13307161 L60.3 left great toenailtot al nail avulsion healeddc wound caremonito r for signs of infection if present seek medical attention immediatel yFollow-up 3 mo [id number] Silverio Eaton DPM [facility] [place] [address] [place] [address] 11/03/2024 10:09:39 11/14/2024 08:24:16 Dystrophia unguium 08990871 L60.3 nails debrided without incidentle ft great toenail regrowing approximat talia 30% and normal in naturefoll ow-up 3 months as needed Unable to cut own toenails 157872236 Z74.1 Diabetic p eripheral neuropathy 418199516 E11.40 check feet daily for wounds infectionC ontinue supportive shoe gearFollow -up in 3 months [id number] Silverio Eaton DPM [facility] [place] [address] [place] [address] 02/02/2025 10:54:30 02/02/2025 15:02:11 Diabetic on oral treatment 051317201 Z79.84 Diabetes mellitus 253385 09 E11.40 continue treatment per PCP recommenda tions Dystrophia unguium 72700 009 L60.3 nails debrided without incidentle ft great toenail re-growing 80%- normalfoll ow-up 3 months as needed Unable to cut own toenails 830643298 Z74.1 Diabetic p eripheral neuropathy 472457352 E11.40 check feet daily for wounds infectionC ontinue supportive shoe gearFollow -up in 3 months Health Concerns Section Related Observation LastModified by Organization Detai ls LastModified Time None Recorded Concern Status LastModified by Organization Details LastModified Time None Recorded Advance Directives Directive None Recorded Payers Encounter Date Sequence Insurance Name Policy Number Policy Morgan Covered Member ID Morgan Member ID Guarantor Name 06/12/2024 1 [place] Denise L Coker [id number] Denise L Coker 06/12/2024 2 [employer] OPTIONS (MEDICARE SUPPLEMENT) Denise L Coker [id number] Denise L Coker 08/12/2024 1 [place] Denise L Coker [id number] Denise L Coker 08/12/2024 2 [employer] OPTIONS (MEDICARE SUPPLEMENT) Denise L Coker [id number] Denise L Coker 08/18/2024 1 [place] Denise L Coker [id number] Denise L Coker 08/18/2024 2 [employer] OPTIONS (MEDICARE SUPPLEMENT) Denise L Coker [id number] Denise L Coker 11/03/2024 1 [place] Denise L Coker [id number] Denise L Coker 11/03/2024 2 [employer] HE[employer] OPTIONS (MEDICARE SUPPLEMENT) Denise L Coker [id number] Denise L Coker 02/02/2025 1 [place] Denise Hernandez Coker [id number] Denise L Coker 02/02/2025 2 [facility] OPTIONS (MEDICARE SUPPLEMENT) Denise Hernandez Coker [id number] Denise Hernandez Coker Notes Date Note Type Note Provider Name and Address Organization Details Recorded Time 06/12/2024 text/html . Patient is a 78-year-old [...] any other complaints. Silverio Eaton DPM [address], [place], [address], [facility] 06/12/2024 10:47:04 08/12/2024 text/html . Patient is 79-year-old female who returns the office for left great toe nail avulsion. Patient overall is doing well she denies any signs of infection to the foot. Patient understands all risks and benefits of the planned procedure and elects to continue. Silverio Eaton DPM [address], [place], [address], [facility] 08/12/2024 11:50:25 08/18/2024 text/html Patient is an 79-year-old female who returns the office for follow-up on toenail avulsion. Patient has healed the toenail bed she has some mild eschar. Patient has no acute signs of infection she denies any fever, chills, nausea vomiting. Patient denies any other complaints. Silverio Eaton DPM [address], [place], [address], [facility] 08/18/2024 12:28:42 11/03/2024 text/html . Patient is [...] denies any other complaints. Silverio Eaton DPM [address], [place], [address], [employer] 11/03/2024 11:10:41 02/02/2025 text/html . Patient is 79-year-old female she is diabetic she returns for routine diabetic foot care she states overall she is doing well she denies any open wounds to the feet or injury. Patient states her nails have become long she would like to have them cut as she has difficulty cutting them. Patient denies any intermittent claudication walking rest pain. Patient states that she is currently battling a infection on the back of her left thigh. Patient states she is currently on antibiotics she states that she has been to the emergency room she was told that she has a spider bite with cellulitis. Patient states that she is following up today for this infection. Patient denies any other complaints. Silverio Eaton DPM [address], [place], [address], [employer] 02/02/2025 15:02:10 OBGyn Episode No OBEpisode recorded.
--- OUTSIDE RECORDS SUMMARY | 2025-02-02 14:21 | XMS_ITS | Encounter Summary ---
Author Organization [facility] Address [address] [place] [address] Care Team Providers Care Ultrasound Tester Name Role Phone Jose Bauer MD Primary Care Provider [phone] Encounter Details Date Type Department Care Team (Late st Contact Info) Description 10/29/2015 Abstract [facility] CONVERSION [address] [place] [address] , Generic Conversion, Social History Tobacco Use [...] Rule Out 10/16/2022 10/16/2022 10/16/2022 7:50 AM [facility] documented as of this encounter Care Teams Ultrasound Tester Relationship Specialty Start Date End Date Jose Bauer MD [address] [place] [address] PCP - General FAMILY PRACTICE 10/07/19 documented as of this encounter
--- OUTSIDE RECORDS SUMMARY | 2025-02-02 14:21 | XMS_ITS | Patient Health Record ---
Author Organization [facility] Address [address] [place] [address] Care Team Providers Care Triple Drum Operator Name Role Phone Lizette PAUL, Jose Primary Care Provider Unavaila Vanna Ansari Unavailable [phone] Sandra Rinaldi Unavailable Unavailable Z[facility]-Migration, Provider Unavailable [...] review and pick correct strength-formulat ion from [employer] options. If intended option is not shown, [...] review and pick correct strength-formulat ion from [employer] options. 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 Problem Essential hypertensi on (34416487) Essential (primary) hypertension (I10) Active confirmed Problem Chronic rhinitis (66130014) Chronic rhinitis (J31.0) Active confirmed Vital Signs Oximetry 96 % 09/30/2024 Blood pressure diastolic 89 mm Hg 09/30/2024 Height 62 in 09/30/2024 Blood pressure systolic 133 mm Hg 09/30/2024 Weight 222.8 lbs 09/30/2024 BMI 40.75 kg/m2 09/30/2024 Encounters Encounter Location Date Provider Diagnosis [address] [address] 05/03/2024 Provider ZZ-Migration Nonfamilial hypogammaglobulinemia D80.1 and Essential (primary) hypertension I10 [facility] [address] [place] [address] [address] 03/18/2024 Vanna Perez Chronic rhinitis J31 .0 ; Nonfamilial hypogammaglobulinemia D80.1 and Essential (primary) hypertension I10 [facility] [address] [place], [place] [address] [address] [address] 05/26/2024 Vanna Perez Chronic rhinitis J31 .0 ; Nonfamilial hypogammaglobulinemia D80.1 and Essential (primary) hypertension I10 [facility] [address] [facility] [address] [place] [address] 09/30/2024 Vanna Perez Chronic rhinitis J31 .0 ; Nonfamilial hypogammaglobulinemia D80.1 and Essential (primary) hypertension I10 [facility] [place] [address] [place] [address] 02/07/2024 Vanna Perez [facility] [address] [place] [address] 03/04/2024 Vanna Perez [facility] [place] [address] [place] [address] 03/11/2024 Vanna Perez [facility] [address] [facility] [address] [place] [address] 03/24/2024 Vanna Perez Assessments Encounter Date Diagnosis (ICD Code) Assessment Notes Treatment Notes Treatment Clinical Notes Section Notes 03/18/2024 Nonfamilial hypogammaglobulinemia (ICD-10 - D80.1) Denise presented to our office reporting history of CVID, records sent by her campaign advisor, Dr. Rinaldi, also report CVID diagnosis. However, [...] history of CVID, records sent by her campaign advisor, Dr. Rinaldi, also report CVID diagnosis. However, [...] history of CVID, records sent by her campaign advisor, Dr. Rinaldi, also report CVID diagnosis. However, [...] Provider Name:Vanna gong, 03/03/2025 09:30:00 AM, [address] [employer], [address], [address], Insurance Providers Payer Name Payer Address Payer Phone Subscriber Number Group Number Insured Name Patient Relationship to Insured Coverage Start Date Coverage End Date [facility] (Medicare) Attention Claims [address] [place] [address] [id number] Denise Coker Self - patient is the insured [facility] [address] [place] [address] [id number] Denise Coker Self - patient is the insured Medical (General) History Medical History History ICD Code Type II diabetes Hypertension Surgical History Surgery Date(Month/Year) partial hysterectomy ankle repair breast biopsy Gallbladder Removal Toenail removal Hospitalization History Reason Date(Month/Year) hysterectomy
--- OUTSIDE RECORDS SUMMARY | 2025-02-02 14:21 | XMS_ITS ---
Author Organization [facility] Address [address] [place] [address] Care Team Providers Care Corporate Aircraft Mechanic Name Role Phone Lizette PAUL, Jose Primary Care Provider Unavaila Vanna Ansari Unavailable [phone] Sandra Rinaldi Unavailable Unavailable [employer]-Migration, Provider Unavailable Unavailab le REASON FOR VISIT [facility] To [facility] Conversion Encounter Medications Medication SIG (Take, Route, Frequency, Duration) Notes Start Date End Date Status Hizentra 20% DIRECTED *Please review and pick correct strength-formulat ion from [employer] options. If intended option is not shown, [...] review and pick correct strength-formulat ion from [employer] options. If intended option is not shown, [...] Active Encounters Encounter Location Date Provider Diagnosis [facility] - [address] [address] 05/03/2024 Provider ZZ-Migration Nonfamilial hypogammaglobulinemia D80.1 and Essential (primary) hypertension I10 Assessments Encounter Date Diagnosis (ICD Code) Assessment Notes Treatment Notes Treatment Clinical Notes Section Notes 05/03/2024 Nonfamilial hypogammaglobulinemia (ICD-10 - D80.1) 05/03/2024 Essential (primary) hypertension (ICD-10 - I10) Plan Of Treatment Medication Medication Name Sig Start Date Stop Date Notes Hizentra 20% DIRECTED *Please rev iew and pick correct strength[facility]formulation from [facility] options. If intended option is not shown, discontinue and re-order from Quick Search* Lisinopril 10 MG 1 tab(s) orally once a day amLODIPine Besylate 2.5 MG 1 tab(s) orally once a day Next Appt Details Provider Name:Vanna gong, 03/03/2025 09:30:00 AM, [address] [facility], [address] [place] [address], [address], Progress Notes * Bola PETERSOB:1945 ([age] yo F)Acc No.[id number]:05/03/2024 Patient: Denise RODRIGUEZ Provider: Judd Guzmán :1945 A ge:78 Y S ex:Female Date:05/03/2024 Address:[address] [place], [place] [address] Pcp:Jose Bauer MD Subjective: * Chief Complaints: * [facility] . [facility]. * Medical History: * Medications: [...] *Please review and pick correct strength-formulation from [employer] options. If intended option is not shown, [...] * Electronic signature of Kaleb GRIFFIN-Migration on 02/02/2025 at 02:21 PM CDT Sign off status: Pending * Provider: Judd anthony Migration Date: 0 05/03/2024 Generated for Thuy gracia/Fuad/Edith on: 0 02/02/2025 02:21 PM CDT
--- OUTSIDE RECORDS SUMMARY | 2025-02-02 14:49 | XMS_ITS | Encounter Summary ---
Author Organization [facility] Address [address] [place] [address] Care Team Providers Care Carbon Lamp Cleaner Name Role Phone Jose Bauer MD Primary Care Provider [phone] Encounter Details Date Type Department Care Team (Late st Contact Info) Description 10/29/2015 Abstract [facility] CONVERSION [address] [place] [address] , Generic Conversion, Social History Tobacco Use [...] Rule Out 10/16/2022 10/16/2022 10/16/2022 7:50 AM JOGGLE PRESS OPERATOR documented as of this encounter Care Teams Carbon Lamp Cleaner Relationship Specialty Start Date End Date Jose Bauer MD [address] [address] PCP - General FAMILY PRACTICE 10/07/19 documented as of this encounter
--- OUTSIDE RECORDS SUMMARY | 2025-02-02 14:49 | XMS_ITS | Clinical Summary ---
Author Organization [facility] Address [facility] [place] [address] Care Team Providers Care Rn Geriatric Name Role Phone Jose Bauer MD Primary Care Provider [phone] Allergies Active Allergy Reactions Criticality Noted Date [...] Comments Blood Pressure 126/81 12/17/2023 7:17 AM ART SPECIALIST Pulse 67 12/17/2023 7:05 AM ART SPECIALIST Temperature 36.8 C (98.3 F) 12/17/2023 7:05 AM ART SPECIALIST Respiratory Rate 24 12/17/2023 7:05 AM ART SPECIALIST Oxygen Saturation 100% 12/17/2023 7:05 AM ART SPECIALIST Inhaled Oxygen Concentration - - Weight 100.2 kg (221 lb) 12/17/2023 7:05 AM ART SPECIALIST Height 165.1 cm (5' 5 ) 12/17/2023 7:05 AM ART SPECIALIST Body Mass Index 36.78 12/17/2023 7:05 AM ART SPECIALIST Plan of Treatment Health Maintenance Due Date [...] 2019 Influenza Adult (#1) 2024 PHQ-2 (Physician [place]) 11/19/2024 12/17/2023 PHQ-2 (Physician [place]) 12/17/2024 12/17/2023 Meningococcal B Vaccine Aged Out No l onger eligible based on patient's age to complete this topic Meningococcal Vaccine Aged Out No jose daniel makayla eligible based on patient's age to complete this topic RSV Immunizations Under 20 Months Aged Out No longer eligible based on patient's age to complete this topic Insurance MEDICARE [facility] Care Teams Rn Geriatric Relationship Specialty Start Date End Date Jose Bauer MD [address] [place], [place] [id number] PCP - General FAMILY PRACTICE 10/07/19
[2025-02-02 17:33] VITALS: BP 118/76; PULSE 72; RESP 18; TEMP 36.4; O2SAT 93
== END 2025-02-02 20:37 | disposition home or self-care (01) ==
PROVIDERS: Registered Nurse; Emergency Provider Emergency Medicine; PCP Family Medicine
DX: L02.416 Cutaneous abscess of left lower limb (principal); I10 Essential (primary) hypertension; E78.5 Hyperlipidemia, unspecified; J45.909 Unspecified asthma, uncomplicated; R73.03 Prediabetes; N39.46 Mixed incontinence; M19.079 Primary osteoarthritis, unspecified ankle and foot; G47.33 Obstructive sleep apnea (adult) (pediatric); Z90.711 Acquired absence of uterus with remaining cervical stump; Z77.22 Contact with and (suspected) exposure to environmental tobacco smoke (acute) (chronic); Z79.82 Long term (current) use of aspirin; Z79.899 Other long term (current) drug therapy
CPT/HCPCS: 36415; 73552; 80053; 83605; 84484; 85025; 85610; 85730; 86140; 87040; 93005; 99284

== ENCOUNTER 2025-02-26 07:07 | Outpatient (RCR) | payer MEDICARE, SELFPAY ==
[2025-02-05 14:00] VITALS: BMI 40.6
== END 2025-04-27 14:29 | disposition home or self-care (01) ==
LOC: ANHWOC 07:07
PROVIDERS: PCP Family Medicine; Visit Provider Nurse Practitioner Family
DX: B99.9 Unspecified infectious disease (principal)
CPT/HCPCS: 99212; 99213; 99214; A9270; G0463

== ENCOUNTER 2025-04-07 06:50 | Outpatient (CLI) | payer MEDICARE, SELFPAY ==
--- OUTSIDE RECORDS SUMMARY | 2025-04-07 06:57 | XMS_ITS | Patient Health Record ---
Author Organization [facility] [employer] [place] ([address]) Address [address] [place] [address] Care Team Providers Care Barrel Bung Remover And Dumper Name Role Phone Lizette PAUL, Jose Primary Care Provider Unavaila Vanna Ansari Unavailable [phone] Sandra Rinaldi Unavailable Unavailable ZZ-Migration, Provider Unavailable Unavailab le Allergies No Known Allergies Reason For Referral No Information Medications Medication SIG (Take, Route, Frequency, Duration) Notes Start Date End Date Status HIZENTRA 20% as directed Activ e Cetirizine HCl 10 MG 1 tablet Orally as needed for 30 days Active Lisinopril 10 MG 1 tab(s) orally once a day Active Cetirizine HCl 5 MG 1 tab(s) orally once a day Active amLODIPine Besylate 2.5 MG 1 tab(s) orally once a day Active Cholecalciferol 125 MCG 1 TAB(S) ORALLY ONCE A DAY *Please review and pick correct strength-formula tion from [employer] options. If intended option is not shown, discontinue and re-order from Quick Search* Active ALBUTEROL (EQV-PROAIR HFA) 90 MCG/INH 2 PUFF(S) INHALED EVERY 6 HOURS *Please review for potential replacement for e-prescription and drug interaction check* Active AMLODIPINE 2.5 mg 1 tab(s) orally once a day Not-Taking Hizentra 20% DIRECTED *Please review and pick correct strength-formula tion from [employer] options. If intended option is not shown, discontinue and re-order from Quick Search* Active Aspirin 81 MG 1 tab(s) chewed once a day Active Rosuvastatin Calcium 20 MG 1 tab(s) orally once a day Active Myrbetriq 50 MG 1 tab(s) orally once a day Active LISINOPRIL 10 mg 1 tab(s) orally once a day Not-Taking Nitroglycerin 0.4 MG 1 tab(s) sublingually every 5 minutes Active Omeprazole 20 MG 1 cap(s) orally once a day Active Metoprolol Succinate ER 50 MG 2 tab(s) orally once a day Active DAPAGLIFLOZIN 10 MG 1 TAB(S) ORALLY ONCE A DAY *Please review for potential replacement for e-prescription and drug interaction check* Active Lutein 20 MG 1 cap(s) orally once a day Active Social History Tobacco Use: Social History Observation Description Date Details (start date - stop date) Never Smoker NA - NA Sex Assigned At : Social History Observation Description Sex Assigned At Female Tobacco Control (Standard) Question Answer Notes Tobacco use: Nonsmoker AUDIT-C (Standard) Question Answer Notes Did you have a drink containing alcohol in the p ast year? 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 Problem Essential hypertensi on (86276126) Essential (primary) hypertension (I10) Active confirmed Problem Chronic rhinitis (26180695) Chronic rhinitis (J31.0) Active confirmed Vital Signs Blood pressure diastolic 98 mm Hg 03/03/2025 Oximetry 96 % 03/03/2025 Height 62 in 03/03/2025 Blood pressure systolic 164 mm Hg 03/03/2025 Weight 228.8 lbs 03/03/2025 BMI 41.84 kg/m2 03/03/2025 Encounters Encounter Location Date Provider Diagnosis [facility] [address] [place] [address] 05/03/2024 Provider ZZ-Migration Nonfamilial hypogammaglobulinemia D80.1 and Essential (primary) hypertension I10 [facility] [address] [facility] [address] [place] [address] 05/26/2024 Vanna Perez Chronic rhinitis J31 .0 ; Nonfamilial hypogammaglobulinemia D80.1 and Essential (primary) hypertension I10 [facility] [address] [facility] [address] [place] [address] 09/30/2024 Vanna Perez Chronic rhinitis J31 .0 ; Nonfamilial hypogammaglobulinemia D80.1 and Essential (primary) hypertension I10 [facility] [address] [facility] [address] [place] [address] 03/03/2025 Vanna Perez Chronic rhinitis J31 .0 ; Nonfamilial hypogammaglobulinemia D80.1 ; Other superficial bite, left lower leg, initial encounter S80.872A and Elevated blood-pressure reading, without diagnosis of hypertension R03.0 Assessments Encounter Date Diagnosis (ICD Code) Assessment Notes Treatment Notes Treatment Clinical Notes Section Notes 05/03/2024 Nonfamilial hypogammaglobulinemia (ICD-10 - D80.1) 09/30/2024 Chronic rhinitis (IC D-10 - J31.0) Last visit Denise reported increased nasal congestion and drainage that started after a URI this Winter. - Can continue Flonase as Denise notes benefit, encouraged daily use for better efficacy. - Trialed ipratropium bromide x 3 weeks, which Denise found beneficial. Symptoms have since resolved 03/03/2025 Nonfamilial hypogammaglobulinemia (ICD-10 - D80.1) Denise presented to our office reporting history of CVID, records sent by her cardiology fellow, Dr. Rinaldi, also report CVID diagnosis. However, [...] drawn in May was 848. No interval sinus/ear/lung infections. Denise is tolerating infusions without issue. Will repeat IgG trough in the next 1-2 months. Order printed and given to Denise. - Continue Hizentra every two weeks at this time. Denise is to continue premedication with Zyrtec. She is aware to contact the office if any issues arise. - Follow-up in 4-6 months for further evaluation and management 03/03/2025 Chronic rhinitis (IC D-10 - J31.0) Last [...] history of CVID, records sent by her cardiology fellow, Dr. Rinaldi, also report CVID diagnosis. However, [...] months for further evaluation and management 05/26/2024 Nonfamilial hypogammaglobulinemia (ICD-10 - D80.1) Denise presented to our office reporting history of CVID, records sent by her cardiology fellow, Dr. Rinaldi, also report CVID diagnosis. However, [...] Denise found beneficial. Symptoms have since resolved 03/03/2025 Other superficial bi te, left lower leg, initial encounter (ICD-10 - S80.872A) Denise was recently treated at a local wound care center due to an unknown insect/spider bite. She was treated with three separate antibiotics. She has now been released from the wound care center, denies issues since discharge 05/26/2024 Essential (primary) hypertension (ICD-10 - I10) BP elevated on PE. Recheck at follow-up and discuss with PMD. No symptoms of hypertensive crisis 09/30/2024 Essential (primary) hypertension (ICD-10 - I10) BP elevated on PE. Recheck at follow-up and discuss with PMD. No symptoms of hypertensive crisis 05/03/2024 Essential (primary) hypertension (ICD-10 - I10) 03/03/2025 Elevated blood-press ure reading, without diagnosis of hypertension (ICD-10 - R03.0) BP elevated today without symptoms of urgency or emergency. Continue serial checks and follow-up with PCP 05/26/2024 Other 09/30/2024 Other 03/03/2025 Other Plan Of Treatment Pending Test Test Name Order Date -Immunoglobulin G, Qn, Serum 05/26/2024 -Immunoglobulin G, Qn, Serum 03/03/2025 Next Appt Details Provider Name:Vanna Vaughan Win gong, 07/13/2025 07:30:00 AM, [address] [facility], [address], [place], [address], Insurance Providers Payer Name Payer Address Payer Phone Subscriber Number Group Number Insured Name Patient Relationship to Insured Coverage Start Date Coverage End Date [employer] (Medicare) Attention Claims [address] [place] [address] [phone] [id number] Denise Coker Self - patient is the insured [facility] [address] [place] [address] [id number] Denise Coker Self - patient is the insured Medical (General) History Medical History History ICD Code Type II diabetes Hypertension Surgical History Surgery Date(Month/Year) partial hysterectomy ankle repair breast biopsy Gallbladder Removal Toenail removal Hospitalization History Reason Date(Month/Year) hysterectomy
--- OUTSIDE RECORDS SUMMARY | 2025-04-07 06:57 | XMS_ITS | Encounter Summary ---
Author Organization [facility] Address [address] [place] [address] Care Team Providers Care Wire Drawer Name Role Phone Jose Bauer MD Primary Care Provider [phone] Encounter Details Date Type Department Care Team (Late st Contact Info) Description 10/29/2015 Abstract [facility] CONVERSION [address] [place] [address] , Generic Conversion, Social History Tobacco Use [...] Rule Out 10/16/2022 10/16/2022 10/16/2022 7:50 AM JOINT CUTTER MACHINE documented as of this encounter Care Teams Wire Drawer Relationship Specialty Start Date End Date Jose Bauer MD [address] [address] PCP - General FAMILY PRACTICE 10/07/19 documented as of this encounter
--- OUTSIDE RECORDS SUMMARY | 2025-04-07 06:57 | XMS_ITS | Clinical Summary ---
Author Organization [facility] Address [facility] [place] [address] Care Team Providers Care Antique Collector Name Role Phone Jose Bauer MD Primary Care Provider [phone] Allergies Active Allergy Reactions Criticality Noted Date [...] Comments Blood Pressure 126/81 12/17/2023 7:17 AM INSIDE B2B SALES Pulse 67 12/17/2023 7:05 AM INSIDE B2B SALES Temperature 36.8 C (98.3 F) 12/17/2023 7:05 AM INSIDE B2B SALES Respiratory Rate 24 12/17/2023 7:05 AM INSIDE B2B SALES Oxygen Saturation 100% 12/17/2023 7:05 AM INSIDE B2B SALES Inhaled Oxygen Concentration - - Weight 100.2 kg (221 lb) 12/17/2023 7:05 AM INSIDE B2B SALES Height 165.1 cm (5' 5 ) 12/17/2023 7:05 AM INSIDE B2B SALES Body Mass Index 36.78 12/17/2023 7:05 AM INSIDE B2B SALES Plan of Treatment Health Maintenance Due Date Last Done Comments DTaP, Tdap and Td Vaccines ( 1 - Tdap) 1963 Zoster Vaccines (1 of 2) 1994 Annual Medicare Wellness Visit 2009 Dexa Scan (General) 2009 Pneumococcal Vaccine: 50+ Ye ars (2 of 2 - PPSV23) 09/05/2017 09/05/2016 RSV Immunization or 60+ Years (1 - 1-dose 75+ series) 2019 COVID-19 Vaccine (2023-2 5 season) 2024 PHQ-2 (Physician [place]) 11/19/2024 12/17/2023 Meningococcal B Vaccine Aged Out No l onger eligible based on patient's age to complete this topic Meningococcal Vaccine Aged Out No jose daniel makayla eligible based on patient's age to complete this topic RSV Immunizations Under 20 Months Aged Out No longer eligible based on patient's age to complete this topic Insurance MEDICARE [facility] Care Teams Antique Collector Relationship Specialty Start Date End Date Jose Bauer MD [address] [place] [address] PCP - General FAMILY PRACTICE 10/07/19
--- OUTSIDE RECORDS SUMMARY | 2025-04-07 06:57 | XMS_ITS | Data Portability ---
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 B[employer] Cleaner variances may occur. Despite proofreading, typographical errors may occur. Occasional wrong-word or 'awrvc-e-ajfp' substitutions may have occurred due to the inherent limitations of voice recording. Read the chart carefully and recognize, using context, where substitutions have occurred. Not available 06/12/2024 10:29:51 08/12/2024 08/12/2024 This note is dictated and transcribed by [employer]. [employer] variances may occur. Despite proofreading, typographical errors may occur. Occasional wrong-word or 'hlyqy-x-ejlj' substitutions may have occurred due to the inherent limitations of voice recording. Read the chart carefully and recognize, using context, where substitutions have occurred. Not available 08/12/2024 11:49:40 08/18/2024 08/18/2024 This note is dictated and transcribed by [employer]. [employer] variances may occur. Despite proofreading, typographical errors may occur. Occasional wrong-word or 'dqqsm-z-mcle' substitutions may have occurred due to the inherent limitations of voice recording. Read the chart carefully and recognize, using context, where substitutions have occurred. Not available 08/18/2024 12:27:42 02/02/2025 02/02/2025 This note is dictated and transcribed by [employer]. B[employer] Cleaner variances may occur. Despite proofreading, typographical errors may occur. Occasional wrong-word or 'ccqjn-p-wdhm' substitutions may have occurred due to the inherent limitations of voice recording. Read the chart carefully and recognize, using context, where substitutions have occurred. Not available 02/02/2025 11:18:00 Plan of Treatment Reminders Order Date Submit Date Provider Last Modified By Organization Details Last Modified Time Details Appointments Establish ed Patient 15 2024 02:30P Clement Eaton DPM Not available Not available Not available Lab None recorded. Referral None recorded. Procedures None recorded. Surgeries None recorded. Imaging None recorded. Medication Orders ketoconaz ole 2 % topical cream 2023 024 [id number], [address] [place] [address], [id number], 08/18/2024 12:28:45 Patient TargetsNo targets recorded. Patient InstructionsNo instructions recorded. Reason for Referral None Reported. Problems Name Problem SNOMED Code Status Onset Date Resolution Date Notes Provider Name and Address Organization Details Recorded Time Paronychi a of toe of left foot 76531229593 612025 Completed 201802/03/2021 Not Available [facility] 3 02:50:48 Paronychi a of toe of right foot 98482088996 120933 Completed 201802/03/2021 Not Available [facility] [place] [facility] 3 02:50:48 Pain in both feet 60524811199 009690 Active 2021 Not Available [facility] [place] [facility] 3 02:50:48 Foot callus 147631999 Active 2018 Not Available [facility] [place] [facility] 3 02:50:48 Headache 04316337 Active 2017 Not Available [facility] [place] [facility] 3 02:50:48 Injury of toe 724128675 Completed 201902/03/2021 Not Available [facility] [place] [facility] 3 02:50:48 Unable to cut own toenails 208756325 Active 2019 Not Available [facility] [place] [facility] 3 02:50:48 Bronchiti s 87675082 Active 2017 Not Available [facility] [place] [facility] 3 02:50:49 Ingrowing nail 612336136 Completed 201802/03/2021 Not Available [facility] [place] [facility] 3 02:50:49 Obesity 625429094 Active 2017 Not Available [facility] [place] [facility] 3 02:50:49 Diabetic periphera l neuropath y 389875090 Completed 201711/01/2021 Silverio Eaton DPM [address], [address], [place], [address] , [employer] 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 [facility] 4 13:09:46 Pain in toe 250495532 Active 2023 Silverio Eaton DPM [address], [address], [place], [address] , [employer] [facility] 4 14:10:35 Pain of toe of left foot 64027146280 9108 Active 2023 Silverio Eaton DPM [address], [address], [place], [address] , [employer] [facility] 4 10:46:06 Diabetic periphera l neuropath y 379518851 Active 2023 Silverio Eaton DPM [address], [address], [place], [address] , [employer] [facility] [employer] [facility] 4 11:09:55 Diabetic on oral treatment 709348624 Active 2024 Tonie maya, [place] [employer] [facility] [employer] [facility] 5 11:17:23 Diabetes mellitus 23129331 Active 2024 Silverio Eaton DPM [address], [address], [place], [address] , [employer] 5 15:01:26 Notes:eye problems Problem Notes None recorded. Procedures Surgical History Date Name Laterality Status Provider Name and Address Organization Details Recorded Time 5 Nail Debridement completed Silverio Eaton DPM [address], [address], [place], [address], [employer] 02/02/2025 15:00:44 4 Nail Debridement completed [address], [place], [address], [employer] 11/03/2024 11:09:08 4 Nail Debridement completed [address], [place], [address], [employer] 08/12/2024 11:49:27 4 Toenail avulsion completed [address], [address], [place], [address], [employer] 08/12/2024 11:49:10 4 Nail Debridement completed [address], [place], [address], [employer] 06/12/2024 10:45:42 4 Nail Debridement completed [address], [place], [address], [employer] [facility] [employer] 04/07/2024 14:09:35 4 Callus Debridement, One completed Silverio Eaton DPM [address], [address], [place], [address], [employer] 04/07/2024 14:09:52 4 Nail Debridement completed [address], [place], [address], [employer] [facility] [employer] [facility] 01/07/2024 13:09:13 4 Callus Debridement, One completed Silverio Eaton DPM [address], [address], [place], [address], [facility] [employer] [facility] 01/07/2024 13:09:19 3 Nail Debridement completed Silverio Eaton DPM [address], [address], [place], [address], [facility] [employer] [facility] [employer] [facility] 08/20/2023 11:34:15 3 Callus Debridement, One completed Silverio Eaton DPM [address], [address], [place], [address], [facility] [employer] [facility] 08/20/2023 11:34:19 3 Nail Debridement completed Silverio Eaton DPM [address], [address], [place], [address], [employer] [facility] [employer] [facility] 05/21/2023 14:19:56 3 Callus Debridement, One completed Silverio Eaton DPM [address], [address], [place], [address], [employer] [facility] [employer] [facility] 05/21/2023 14:20:06 3 Nail Debridement completed Silverio Eaton DPM [address], [address], [place], [address], [employer] [facility] [employer] [facility] 03/01/2023 15:21:29 Imaging Results None recorded. Procedure [...] completed Not Available Not Available Not Available Primera Ultra Saline Mist nasal Take by nasal [...] Not Available No t Available Fluzone High-Dose [id number] (PF) 180 mcg/0.5 mL intramuscul ar syringe [...] Updated DateTime 4 165.1 cm 36.9 kg/m2 369960. 51 g 67 /min 16 /min 98 [degF] 98 % 98 % 120 mm[Hg] 80 mm[Hg] Jaclyn Arthur [place] [employer] [facility] 4 10:17:56 Date Recorded Body height Body mass index (BMI) Body weight Heart rate Respiratory rate Oxygen saturation Oxygen saturation in Arterial blood by Pulse oximetry Systolic blood pressure Diastolic blood pressure Provider Name and Address Organization Details Last Updated DateTime 4 165.1 cm 36.9 kg/m2 962490. 51 g 68 /min 14 /min 99 % 99 % 125 mm[Hg] 70 mm[Hg] [facility] [employer] [facility] [employer] [facility] 4 10:45:43 Date Recorded Body height Body mass index (BMI) Body weight Heart rate Respiratory rate Oxygen saturation Oxygen saturation in Arterial blood by Pulse oximetry Systolic blood pressure Diastolic blood pressure Provider Name and Address Organization Details Last Updated DateTime 4 165.1 cm 36.9 kg/m2 810809. 51 g 78 /min 14 /min 98 % 98 % 138 mm[Hg] 78 mm[Hg] [facility] [employer] [facility] [employer] [facility] 4 11:40:05 Date Recorded Body height Body mass index (BMI) Body weight Provider Name and Address Organization Details Last Updated DateTime 11/03/2024 165.1 cm 36.9 kg/m2 233085.51 g [facility] [employer] [facility] [employer] [facility] 11/03/2024 10:15:24 Date Recorded Body height Body mass index (BMI) Body weight Heart rate Respiratory rate Oxygen saturation Oxygen saturation in Arterial blood by Pulse oximetry Systolic blood pressure Diastolic blood pressure Provider Name and Address Organization Details Last Updated DateTime 5 165.1 cm 36.9 kg/m2 523177. 51 g 77 /min 14 /min 98 % 98 % 111 mm[Hg] 76 mm[Hg] [facility] [employer] [facility] [employer] [facility] 5 11:14:37 Social History None recorded. Functional Status None recorded. Mental Status None recorded. Family History Relationship Description Onset Age of this Age Resolved Age Notes LastModified by Organization Details LastModified Time Brother Diabetes mellitus [email or web address] Not available 05/20 10:19:18 Notes:stroke - father, cance r - son, brother Medical History Condition Response HYPERTENSION Y Gynecological HistoryNo gynecological history recorded. Obstetrics History GPAL:G 0 P 0 0 0 0 Past Encounters Encounter ID Performer Location Encounter Start Date Encounter Closed Date Diagnosis/Indication Diagnosis SNOMED-CT Code Diagnosis ICD10 Code Diagnosis Note [id number] [facility] IGRATION_ DEFAULT_1 _1 , 01/31/2021 00:00:00 02/03/2021 19:00:09 [id number] [facility] IGRATION_ DEFAULT_1 _1 , 05/02/2021 00:00:00 05/02/2021 11:31:47 [id number] Silverio AngelitoART sandy IGRATION_ DEFAULT_1 _1 , 08/01/2021 00:00:00 08/02/2021 16:00:00 [id number] Silverio EatonART_Clement IGRATION_ DEFAULT_1 _1 , 10/31/2021 00:00:00 11/01/2021 15:14:30 [id number] Silverio EatonART_Clement IGRATION_ DEFAULT_1 _1 , 01/30/2022 00:00:00 02/16/2022 08:44:54 [id number] Silverio EatonART_Clement IGRATION_ DEFAULT_1 _1 , 05/01/2022 00:00:00 05/01/2022 15:09:45 [id number] Silverio EatonART IGRATION_ DEFAULT_1 _1 , 08/14/2022 00:00:00 08/14/2022 14:24:24 [id number] Silverio Eaton DPM [facility] Pod[facility] [place] [address] [place] [address] 11/30/2022 00:00:00 11/30/2022 15:27:51 [id number] Silverio Eaton DPM [facility] [place] [address] [place] [address] 03/01/2023 13:37:59 03/14/2023 10:17:28 Dystrophia unguium 53273951 L60.3 Nails 1 through 10 were debrided with sharp mechanical debridemen t without incident. Nails were debrided and greater than 50% length and thickness where needed. Unable to cut own toenails 399238852 Z74.1 [id number] Silverio Eaton DPM [facility] [place] [address] [facility] [address] [place] [address] 05/21/2023 10:39:00 05/23/2023 11:29:20 Foot callus 300037731 L84 Debrided callus without incidentRe commend continuing offloading and wide shoe gearMonito r area daily to ensure no wounds present if present seek medical attention immediatel yFollow-[facility] 3 months as needed Dystrophia unguium 72173 009 L60.3 Nails 1 through 10 were debrided with sharp mechanical debridemen t without incident. Nails were debrided and greater than 50% length and thickness where needed.fol low-up 3 months as needed Unable to cut own toenails 235863481 Z74.1 [id number] Silverio Eaton DPM [facility] [place] [address] [facility] [address] [place] [address] 08/20/2023 10:52:44 08/20/2023 11:53:03 Dystrophia unguium 84072126 L60.3 Nails 1 through 10 were debrided with sharp mechanical debridemen t without incident. Nails were debrided and greater than 50% length and thickness where needed.fol low-up 3 months as needed Foot callus 596339891 L8 4 Debrided callus without incidentRe commend continuing offloading and wide shoe gearMonito r area daily to ensure no wounds present if present seek medical attention immediatel yFollow-[facility] in [facility] 3 months as needed Unable to cut own toenails 718442687 Z74.1 [id number] Silverio Eaton DPM [facility] [place] [address] [facility] [address] [place] [address] 01/07/2024 12:44:54 01/07/2024 14:05:41 Dystrophia unguium 03671856 L60.3 Nails 1 through 10 were debrided with sharp mechanical debridemen t without incident. Nails were debrided and greater than 50% length and thickness where needed.fol low-up 3 months as needed Subungual hematoma of great toe of left foot 0383286457 4964155 S90.212A MildIf nail becomes loose return to office for nail avulsion Unable to cut own toenails 171206088 Z74.1 Foot callus 222662179 L8 4 Debrided callus without incidentRe commend continuing offloading and wide shoe gearMonito r area daily to ensure no wounds present if present seek medical attention immediatel yFollow-[facility] 3 months as needed [id number] Silverio Eaton DPM [facility] [place] [address] [place] [address] 04/07/2024 11:26:32 04/07/2024 14:38:37 Dystrophia unguium 58626183 L60.3 Nails 1 through 10 were debrided with sharp mechanical debridemen t without incident. Nails were debrided and greater than 50% length and thickness where needed.fol low-up 3 months as needed Subungual hematoma of great toe of left foot 0533699527 5308424 S90.212A MildIf nail becomes loose return to office for nail avulsion Foot callus 659243214 L8 4 Debrided callus without incidentRe commend continuing offloading and wide shoe gearMonito r area daily to ensure no wounds present if present seek medical attention immediatel yFollow-[facility] 3 months as needed Unable to cut own toenails 229907110 Z74.1 Pain in toe 472188344 M7 9.621 [id number] Silverio Eaton DPM [facility] [place] [address] [place] [address] 06/12/2024 10:09:57 06/12/2024 13:18:34 Dystrophia unguium 16886327 L60.3 Nails 1 through 10 were debrided with sharp mechanical debridemen t without incident. Nails were debrided and greater than 50% length and thickness where needed.fol low-up 3 months as needed Pain in toe 483863972 M7 9.676 This note is dictated and transcribe d by [employer]. Transcript ion variances may occur. Despite proofreadi ng, typographi ricardo errors may occur. Occasional wrong-word or 'sound-a-l angela' substituti ons may have occurred due to the inherent limitation s of voice recording. Read the chart carefully and recognize, using context, where substituti ons have occurred. Pain of to e of left foot 9847936303 90595 M79.675 left great toeonychod ystrophyDi scussed optionsPat ient would like to schedule total nail avulsion of left great toenailpat ient to stop baby aspirin 7 days prior [id number] Silverio Eaton DPM [facility] Pod[facility] [place] [address] [facility] [address] [place] [address] 08/12/2024 10:32:25 08/13/2024 12:24:12 Dystrophia unguium 20564780 L60.3 left great toenailtot al nail avulsion performedw ound care instructio ns reviewedmo nitor for signs of infection if present seek medical attention immediatel yFollow-up 1 weekNails 1 through 9 were debrided with sharp mechanical debridemen t without incident. Nails were debrided and greater than 50% length and thickness where needed.fol low-up 3 months as needed [id number] Silverio Eaton DPM [facility] [place] [address] [place] [address] 08/18/2024 10:52:35 08/21/2024 16:25:04 Dystrophia unguium 11041172 L60.3 left great toenailtot al nail avulsion healeddc wound caremonito r for signs of infection if present seek medical attention immediatel yFollow-up 3 mo [id number] Silverio Eaton DPM [facility] [place] [address] [place] [address] 11/03/2024 10:09:39 11/14/2024 08:24:16 Dystrophia unguium 17045341 L60.3 nails debrided without incidentle ft great toenail regrowing approximat talia 30% and normal in naturefoll ow-up 3 months as needed Unable to cut own toenails 595477468 Z74.1 Diabetic p eripheral neuropathy 814510947 E11.40 check feet daily for wounds infectionC ontinue supportive shoe gearFollow -up in 3 months [id number] Silverio Eaton DPM [facility] [place] [address] [place] [address] 02/02/2025 10:54:30 02/03/2025 09:40:13 Diabetic on oral treatment 900200809 Z79.84 Diabetes mellitus 075174 09 E11.40 continue treatment per PCP recommenda tions Dystrophia unguium 06388 009 L60.3 nails debrided without incidentle ft great toenail re-growing 80%- normalfoll ow-up 3 months as needed Unable to cut own toenails 124743002 Z74.1 Diabetic p eripheral neuropathy 679697015 E11.40 check feet daily for wounds infectionC [...] Morgan Member ID Guarantor Name 06/12/2024 1 [place] Denise L Coker [id number] Denise L Coker 06/12/2024 2 [employer] (MEDICARE SUPPLEMENT) Denise L Coker [id number] Denise L Coker 08/12/2024 1 [place] Denise L Coker [id number] Denise L Coker 08/12/2024 2 [employer] OPTIONS (MEDICARE SUPPLEMENT) Denise L Coker [id number] Denise L Coker 08/18/2024 1 [place] Denise L Coker [id number] Denise L Coker 08/18/2024 2 [employer] OPTIONS (MEDICARE SUPPLEMENT) Denise L Coker [id number] Denise L Coker 11/03/2024 1 [place] Denise L Coker [id number] Denise Hernandez Coker 11/03/[address] [facility] OPTIONS (MEDICARE SUPPLEMENT) Denise Hernandez Coker [id number] Denise L Coker 02/02/2025 1 [place] Denise Hernandez Coker [id number] Denise Hernandez Coker 02/02/[address] [facility] OPTIONS (MEDICARE SUPPLEMENT) Denise Hernandez Coker [id number] Denise Hernandez Coker Notes Date Note Type [...] any other complaints. Silverio Eaton DPM [address], [place], [address], [employer] 06/12/2024 10:47:04 08/12/2024 text/html . Patient is 79-year-old female who returns the office for left great toe nail avulsion. Patient overall is doing well she denies any signs of infection to the foot. Patient understands all risks and benefits of the planned procedure and elects to continue. Silverio Eaton DPM [address], [place], [address], [employer] 08/12/2024 11:50:25 08/18/2024 text/html Patient is an 79-year-old female who returns the office for follow-up on toenail avulsion. Patient has healed the toenail bed she has some mild eschar. Patient has no acute signs of infection she denies any fever, chills, nausea vomiting. Patient denies any other complaints. Silverio Eaton DPM [address] [employer], [place], [address], [employer] 08/18/2024 12:28:42 11/03/2024 text/html . Patient is [...] other complaints. Silverio Eaton DPM [address], [facility] [address], [place], [address], [employer] 11/03/2024 11:10:41 02/02/2025 text/html . Patient is [...] complaints. Silverio Eaton DPM [address], [facility] [address], [place], [address], [employer] 02/02/2025 15:02:10 OBGyn Episode No OBEpisode recorded.
[2025-04-07 08:08] LABS: Immunoglobulin G 827 mg/dL (700-1600)
== END 2025-04-07 06:51 | disposition home or self-care (01) ==
PROVIDERS: PCP Surgery; Visit Provider Student in an Organized Health Care Education/Training Program
DX: D80.1 Nonfamilial hypogammaglobulinemia (principal)
CPT/HCPCS: 36415; 82784

== ENCOUNTER 2025-07-16 10:45 | Outpatient (CLI) | payer MEDICARE, SELFPAY ==
[2025-07-16 11:20] LABS: Hematocrit 45.8 % (37.0-47.0); Hemoglobin 15.4 g/dL (12.0-15.0); Mean Corpuscular HGB Conc 33.6 g/dl (32-36); Mean Corpuscular Hemoglobin 30.7 pg (26-34); Mean Corpuscular Volume 91.2 fl (80-100); Platelet Count Result 186 k/mm3 (150-375); Red Blood Count 5.02 M/mm3 (4.2-5.4); White Blood Count 6.9 K/mm3 (4.5-10.0)
[2025-07-16 11:46] LABS: Anion Gap 9 mmol/L (4-12); Blood Urea Nitrogen 18 mg/dL (7-17); Calcium 9.7 mg/dL (8.4-10.2); Carbon Dioxide 26 mmol/L (22-30); Chloride 102 mmol/L (98-107); Estimated Glomerular Filt Rate > 60; Glucose 116 mg/dL (65-110); Potassium 4.0 mmol/L (3.4-5.0); Sodium 137 mmol/L (137-145)
[2025-07-16 11:51] LABS: MALB Creatinine Ratio 14.7 mg/g (0-30)
== END 2025-07-16 10:46 | disposition home or self-care (01) ==
PROVIDERS: PCP Family Medicine; Visit Provider Family Medicine
DX: I10 Essential (primary) hypertension (principal); E11.9 Type 2 diabetes mellitus without complications
CPT/HCPCS: 36415; 80048; 82043; 85027